=== PATIENT | female | born 1970 | race Caucasian/White ===

== ENCOUNTER 2018-11-20 07:45 | Emergency (ER) | payer MEDICAID, SELFPAY ==
[2018-11-20 07:47] VITALS: BP 167/113; PULSE 78; RESP 15; TEMP 36.6; O2SAT 98; BMI 32.3
[2018-11-20 07:52] VITALS: PULSE 72; RESP 17
--- NOTE | 2018-11-20 08:04 | ED.DCSUM_ITS ---
- ER Visit Summary Date of Service: 11/20/18 Chief Complaint: Allergic reaction History of Present Illness: The patient is a 48 F who states that approximately 0330 hours she ate some lays poppers. She tells me at approximately 0500 hrs. She began to experience some facial swelling and felt that it moved into her throat. She states she felt short of breath. She did not take anything. She went to urgent care where she states she has been for the past hour. She states they did not give her any medications. She states she feels somewhat better now. She cannot tell me her medications tell me the only should be in the computer but she unfortunately does not get regular care through the hospital [facility]. Physical Examination: Afebrile vital signs are stable Gen: Well-nourished well-developed Head: Normocephalic atraumatic Eyes: Perrl EOMI ENT: TMs clear no rhinorrhea moist mucous membranes there appears to be some upper lip swelling. There is no uvular swelling. The tongue appears normal. There is no stridor or drooling. Patient is laying back at a 40 degree angle. Neck: Supple no lymphadenopathy no JVD nontender CVS: Regular rate rhythm no murmurs normal S1-S2 Respiratory: No distress clear to auscultation bilaterally chest nontender Abdomen: Soft nontender nondistended normal bowel sounds no masses Back: Nontender Extremity: Nontender no edema Skin: Normal color no rash specifically no hives Neuro: alert orientated ?3 CN II-XII intact normal strength sensation reflexes gait cerebellar Psych: Normal affect normal mood Emergency Department Course and Treatment: Patient was placed on the monitor. She received a dose of Solu-Medrol, Pepcid, and Benadryl. She was observed. We contacted her pharmacy to obtain a medication list. I do not see the list. Patient was observed for approximately 2 half hours and is improved. Patient will be discharged home I will write for continued prednisone Pepcid and Benadryl at home. Return if worsening or concerns Impression: 1. Acute allergic reaction This note was generated with [employer] software. It may contain incorrect words, spelling, and punctuation that were not noted in review of the chart prior to signing ED Disposition - Plan for ED Patient: Disposition: Home or Assisted Living Instructions: ALLERGIC REACTION, Other (General) Prescriptions: Prednisone [Deltasone] 40 mg PO DAILY #6 tab Prescription Printed Referrals: Hudson Vidales DO [Primary Care Provider] - As Needed Additional Instructions: Benadryl 25 mg every 6 hours for the next 2 days Pepcid 20 mg twice a day for the next 2 days Return if worsening or concerns
[2018-11-20] MEDS: Famotidine 20 MG Tablet 40 MG PO (08:12)
[2018-11-20] MEDS: MethylPREDNISolone 125 MG/2 ML Vial IV (08:13)
[2018-11-20] MEDS: DiphenhydrAMINE 50 MG/ML Syringe 25 MG IV (08:13)
[2018-11-20 10:15] VITALS: BP 152/84; PULSE 70; RESP 16; O2SAT 93
[2018-11-20 10:51] VITALS: BP 127/81; PULSE 70; O2SAT 92
== END 2018-11-20 10:57 | disposition home or self-care (01) ==
PROVIDERS: Emergency Provider Emergency Medicine; Family Provider Student in an Organized Health Care Education/Training Program; PCP Student in an Organized Health Care Education/Training Program
DX: T78.40XA Allergy, unspecified, initial encounter (principal); R06.00 Dyspnea, unspecified; I10 Essential (primary) hypertension; E78.00 Pure hypercholesterolemia, unspecified; F32.9 Major depressive disorder, single episode, unspecified; Z72.0 Tobacco use
CPT/HCPCS: 96374; 96375; 99285; A4216

== ENCOUNTER 2018-11-22 04:36 | Observation (INO) | payer MEDICAID, SELFPAY ==
[2018-11-22] VITALS (10 sets, daily range): BP systolic 119–157; BP diastolic 62–108; PULSE 66–89; RESP 14–20; TEMP 36.7–37.2; O2SAT 94–99; BMI 27.4; BMI 30.9; BMI 31.0
--- NOTE | 2018-11-22 05:08 | CT_ITS ---
STUDY: CT SOFT TISSUE NECK WITH CONTRAST REASON FOR EXAM: Female, 48 years old. Uvulitis. RADIATION DOSAGE (If Supplied By Facility): CTDIvol = ( 23.28 ) mGy, DLP = ( 592.76 ) mGycm TECHNIQUE: The patient was scanned in a multi-detector CT scanner. High resolution transaxial imaging was performed following intravenous administration of 75CC IV Isovue 370. Sagittal and coronal images were reconstructed. Individualized dose optimization techniques were used for this CT. COMPARISON: None. FINDINGS: There is thickening of the soft palate, asymmetrically greater on the left. There is thickening of the left lateral oropharyngeal wall and asymmetric enlargement of the left palatine tonsil. Soft tissue thickening extends within the oropharynx and hypopharynx, with effacement of the left aryepiglottic fold, left vallecula, and left piriform sinus. No discrete mass or abscess is identified. The finding is indeterminate for inflammatory process versus neoplastic infiltration. Fat infiltration extends laterally into the left carotid space. There is also fatty infiltration around the left submandibular gland. The submandibular gland itself appears normal. Normal bilateral parotid glands. Normal bilateral body trimmer spaces. Normal bilateral sublingual and submandibular glands.. Normal visualized nasopharynx. The visualized cervical lymph nodes (levels I-) are within normal size limits, and maintain normal morphology. There is no demonstrated solid or cystic mass lesion. Normal epiglottis.. The pre-epiglottic and paraglottic adipose spaces are normal. Normal visualized bilateral vocal cords, and arytenoid-cricoid articulations. Normal subglottic trachea. Normal bilateral lobes of the thyroid gland. There mild emphysematous changes in the visualized upper lung sue. There is minimal mucoperiosteal thickening in left maxillary sinus, consistent with chronic disease. There is multilevel degenerative changes of the cervical spine. CT/Soft Tissue Neck WITH Contrast IMPRESSION: Asymmetric soft tissue thickening and heterogeneity of the left oropharyngeal and hypopharyngeal wall as well as the soft palate, possibly representing an inflammatory or neoplastic process. No discrete mass or abscess is visualized. There is associated fat alteration in the left carotid space and left submandibular region. Electronically Signed: Felix Cid MD at 7:46 EDT , Service support ,
[2018-11-22] MEDS: MethylPREDNISolone 125 MG/2 ML Vial IV (05:35)
[2018-11-22] MEDS: DiphenhydrAMINE 50 MG/ML Syringe 25 MG IV ×3 (05:36→17:29)
[2018-11-22 05:40] LABS: Absolute Lymphocyte Count 1.81 X10^3/ul (0.83-4.51); Absolute Neutrophil Count 4.6 X10^3/uL (2.0-7.7); Basophil# 0.01 X10^3/uL; Basophil% 0.1 % (0-1); Eosinophil# 0.06 X10^3/uL; Eosinophils% 0.8 % (0-5); Hematocrit 41.5 % (37-47); Hemoglobin 14.1 g/dl (12.0-15.0); Lymphocyte # 1.81 X10^3/ul (4.0); Lymphocyte % 25.5 % (19-41); Mean Corpuscular Hgb 29.6 pg (27.0-32.0); Mean Corpuscular Volume 87.2 fL (81-99); Mean Platelet Vol. 8.7 fl (6.2-12.0); Monocyte% 8.4 % (0-10); Neutrophil # 4.62 X10^3/uL (2.7-7.7); Neutrophil % 65.1 % (47-70); POSITIVE COUNT NO; POSITIVE DIFFERENTIAL NO; POSITIVE MORPHOLOGY NO; Platelet Count 257 K/mm3 (150-450); RBC Distribution Width CV 13.1 % (11.6-14.6); RBC Distribution Width SD 41.2 fl (35.1-43.9); Red Blood Count 4.76 M/mm3 (4.2-5.4); White Blood Count 7.1 K/mm3 (4.4-11.0)
[2018-11-22 06:28] LABS: Anion Gap 9 (5-15); BUN 18 mg/dL (7-18); BUN/Creat Ratio 17.3 RATIO (10-20); Chloride 95 mmol/L (98-107); Creatinine, Serum 1.04 mg/dL (0.55-1.02); EST Glomerular Filtration Rate 60 mL/min (>60); Est Glom Filt Rate - Afr Amer 72 mL/min (>60); Estimated Creatinine Clearance 53.53 ml/min; Glucose 96 mg/dL (74-106); Sodium Level 133 mmol/L (136-145)
--- NOTE | 2018-11-22 07:36 | ED.DCSUM_ITS ---
- ER Visit Summary Date of Service: 11/22/18 Chief Complaint: Left face and hand swelling History of Present Illness: The patient is a 48 F who presents with left face and hand swelling. She was seen yesterday for possible allergic reaction. She was treated with steroids Benadryl Pepcid. Her symptoms improved and she was discharged. Symptoms began to recur about 2 hours ago. She noticed swelling of her left hand as well as the left side of her face and neck and also has change in her voice was hoarse voice. At this time she does not have any difficulty breathing. Physical Examination: Blood pressure 157/108 vitals otherwise unremarkable Moist mucous membranes Hoarse voice Patient has uvular edema as well as some edema of the left side of the pharynx Heart regular rate and rhythm Lungs clear Abdomen soft Patient also has edema of the left hand Test Results: CBC BMP unremarkable. CT the soft tissue the neck on my review does show enlarged uvula but the airway appears to be patent. Radiology read is pending. Emergency Department Course and Treatment: Etiology of the patient's symptoms is unclear. I suspect this is an atypical angioedema. She is not on an PATRICK inhibitor and does not have history of prior similar symptoms. However given her significant uvular edema with voice changes and second ER visit within a day I feel hospital observation warranted. She was treated here with IV Solu-Medr ol, Pepcid, Benadryl. Treatment Plan: [] Disposition: Admit Impression: Uvulitis, suspect angioedema Left hand swelling This note was generated with [employer] dictation software. It may contain incorrect words, spelling, and punctuation that were not noted in review of the chart prior to signing ED Disposition - Plan for ED Patient: Referrals: Hudson Vidales DO [Primary Care Provider] -
--- NOTE | 2018-11-22 07:56 | NURSING ---
PCU ALLERGIC RK, POSSIBLE ANGIOEDEMA GENESIS
--- NOTE | 2018-11-22 08:47 | HP.PCM_ITS ---
Problem List (1) Hypertension Status: Chronic (2) Epilepsy, unspecified, not intractable, without status epilepticus Status: Chronic (3) Dyslipidemia Status: Chronic (4) Anxiety and depression Status: Chronic (5) Angioedema Status: Acute History of Present Illness Date of Admission: 11/22/18 Chief Complaint: Swelling of upper airways The patient is a 48 year old F with history of seasonal allergy came to ED on 11/20 throat swelling and facial swelling and was given 1 dose of Solu-Medrol, Pepcid and Benadryl and sent home on prednisone, Pepcid and Benadryl. Patient stated her initially she felt better but facial and hand swelling came back doctor naturopathic today. She noticed swelling of the left hand with a small maculopapular rash localized to hand and upper forearm. She denies any difficulty in breathing. She also noticed change in her voice with worsening. She denies allergic history of lisinopril, other PATRICK inhibitor or any significant drug allergy except seasonal allergy to pollens. This started after she ate lay poppers on 11/20. She never had that before. Past Medical History Past Medical History (Chronic Problems): Chronic Problems Hypertension (Chronic) Epilepsy, unspecified, not intractable, without status epilepticus (Chronic) Dyslipidemia (Chronic) Anxiety and depression (Chronic) Allergies SEASONAL Allergy (Uncoded 11/22/18 04:40) Other Home Medications: Ambulatory Orders Medication Instructions Recorded Albuterol IH (ProAir) [Proair Hfa 1 puff INHALATION Q6H PRN PRN 11/20/18 (SP)Vent Pts] Carbamazepine [Tegretol] 200 mg PO BIDCM 11/20/18 Citalopram [Celexa] 20 mg PO DAILY 11/20/18 Docusate Sodium [Colace] 100 mg PO BID 11/20/18 Fluticasone 0.05% [Flonase Nasal 2 spray NASAL DAILY 11/20/18 [place]] Ibuprofen [Motrin] 600 mg PO Q6H PRN PRN 11/20/18 Simvastatin 1 tab PO DAILY 11/20/18 hydrALAZINE [Apresoline] 25 mg PO TID 11/20/18 Smoking Status: Current every day smoker - *Family History Paternal History Items: No pertinent history - Significant allergic history to penicillin or other common drugs or hereditary angioedema in first-degree family relative Review of Systems Constitutional: Denies: Chills, Fever, Weight Change HEENT: Reports: Sore Throat, - - Hoarseness. Denies: Difficulty Swallowing, Dysphasia, Head Aches, Sinus Congestion, Sinus Drainage Cardiovascular: Denies: Chest Pain, Chest Pressure, Chest Tightness, Palpitations Respiratory: Denies: Cough, Shortness of Breath, Shortness of breath at rest, Sputum production Gastrointestinal: Denies: Abdominal Pain, Nausea, Vomiting Genitourinary: Denies: Dysuria Musculoskeletal: Denies: Joint Pain, Joint Tenderness Skin: Denies: Rash, Wounds Neurological: Denies: Numbness, Tingling, Focal weakness Psychiatric: Denies: Anxiety, Depression, Homicidal Ideations, Suicidal Ideations Hematologic/ Lymphatic: Denies: Easy Bruising, Easy Bleeding VTE Information - Inpt Only VTE Present on Admission: No VTE Mechan Device Prophylaxis: None VTE Pharm Prophylaxis ordered?: Yes Patient Problems: Active and Suspected Problems Angioedema (Acute) - Physical Exam General: Alert, Oriented x3, Cooperative HEENT: Atraumatic, PERRLA, EOMI, Normocephalic, - - Mild facial puffiness/swelling. Swelling of/soft palate/uvula. Posterior part of tongue. Tenderness of neck anteriorly near the larynx and submandibular region Oral: No Gingival or Mucosal Lesions/ Ulcerations Neck: Supple, No JVD, Negative Carotid Bruits Lungs: Clear to auscultation, Normal air movement Cardiovascular: Regular rate, No murmurs Abdomen: Bowel Sounds Present, Soft, Non Tender, Non-Distended Extremities: No edema, Capillary Refill Less than 3 Seconds Skin: No rashes, No breakdown, Rash Present - Localized macular papular rash on dorsal aspect of left hand and forearm. Chronic freckles over her back and extensor aspect of both arm. She claims freckles are old rash on sun after taking hydralazine. Musculoskeletal: No Tenderness to Palpation of Joints or Extremities Lymphatic: No Cervical, Supraclavicular, or Inguinal Adenopathy Neurological: Cranial nerves II-XII grossly intact, Deep Tendon Reflexes 2+/4 and Symmetrical, Neuro grossly intact Psych/Mental Status: Normal Affect, Appropriate Vital Signs Temp Pulse Resp BP Pulse Ox 98.1 F 89 14 157/108 H 99 11/22/18 04:36 11/22/18 04:36 11/22/18 07:53 11/22/18 04:36 11/22/18 04:36 Oxygen Delivery Method Room Air Weight: 155 lb Body Mass Index (BMI) 27.4 Laboratory Tests Past 24 Hrs 11/22/18 11/22/18 11/22/18 05:25 05:25 05:25 WBC 7.1 RBC 4.76 Hgb 14.1 Hct 41.5 MCV 87.2 MCH 29.6 MCHC 34.0 RDW 13.1 RDW Differential 41.2 Plt Count 257 MPV 8.7 Immature Gran % (Auto) 0.100 Neut % (Auto) 65.1 Lymph % (Auto) 25.5 [place] % (Auto) 8.4 Eos % (Auto) 0.8 Baso % (Auto) 0.1 Absolute Neuts (auto) 4.6 Absolute Lymphs (auto) 1.81 Total Counted Not Reportable Sodium 133 L Potassium 4.0 Chloride 95 L Carbon Dioxide 29.0 Anion Gap 9 BUN 18 Creatinine 1.04 H Estim Creat Clear Calc 53.53 Est GFR (MDRD) Af Amer 72 Est GFR (MDRD) Non-Af 60 BUN/Creatinine Ratio 17.3 Glucose 96 Calcium 9.0 Total Bilirubin Pending Direct Bilirubin Pending AST Pending ALT Pending Alkaline Phosphatase Pending C-React Prot Ext Range Pending Total Protein Pending Albumin Pending Assessment/Plan All Active Problems Angioedema (Acute) The patient is a 48 year old F with history of seasonal allergy came to ED on 11/20 lip, throat swelling and facial swelling after eating started after she ate lay poppers on 11/20 is being admitted for recurrence of symptoms and change in voice. 1. Swelling of tongue, soft palate and upper airways with concern of angioedema: Patient is being admitted in PCU for airway monitoring. Patient is started on IV Solu-Medrol, famotidine and Benadryl. IV fluid normal saline at 100 mL/h. Patient advised not to eat LAY poppers, potato chips. 2. Hypertension: Uncontrolled. Blood pressure was 152/74. Continue home medication and monitor. 3. Epilepsy nonspecific, chronic: Patient is on Tegretol and continued. 4. Other comorbidities include dyslipidemia, moderate obesity: Home medications continued. DVT prophylaxis: On Lovenox 40 g subcu daily. Code Visit OBSV E&M: 11476 Initial observation care L3
[2018-11-22] MEDS: 0.9% Normal Saline 1,000 ML 100 ML IV ×2 (09:40→20:00)
[2018-11-22 09:48] LABS: AST(SGOT) 28 U/L (15-37); Alanine Aminotransfer ALT/SGPT 23 U/L (13-56); Albumin, Serum 3.5 g/dL (3.2-5.0); Alkaline Phosphatase 95 U/L (45-117); Bilirubin, Direct 0.08 mg/dL (0.00-0.30); Globulin 3.9 g/dL (2.2-4.2); Protein, Total 7.4 g/dL (6.4-8.2)
[2018-11-22] MEDS: Fluticasone 0.05% 1 SPRAY NASAL.SRY 2 SPRAY NASAL (10:59)
[2018-11-22] MEDS: Enoxaparin 40 MG/0.4 ML Syringe SC (11:00)
[2018-11-22] MEDS: Famotidine 20 MG Tablet PO ×2 (11:00→21:47)
[2018-11-22] MEDS: carBAMazepine 200 MG Tablet PO ×2 (11:00→17:29)
[2018-11-22] MEDS: Docusate Sodium 100 MG Capsule PO (11:01)
[2018-11-22] MEDS: Citalopram 20 MG Tablet PO (11:01)
[2018-11-22] MEDS: hydrALAZINE 25 MG Tablet PO ×2 (11:02→21:47)
[2018-11-22] MEDS: Atorvastatin Calcium 20 MG Tablet PO (21:47)
[2018-11-22] MEDS: 0.9% NaCl Peripheral Flush Adult/Peds IV (21:48)
[2018-11-23] MEDS: DiphenhydrAMINE 50 MG/ML Syringe 25 MG IV ×2 (00:11→05:47)
[2018-11-23] MEDS: 0.9% NaCl Peripheral Flush Adult/Peds IV ×2 (00:11→05:51)
[2018-11-23 03:00] VITALS: PULSE 66
[2018-11-23 03:40] VITALS: BP 130/73; PULSE 70; RESP 20; TEMP 36.7; O2SAT 94
[2018-11-23 05:48] VITALS: BP 156/94; PULSE 73
[2018-11-23] MEDS: hydrALAZINE 25 MG Tablet PO (05:48)
[2018-11-23] MEDS: 0.9% Normal Saline 1,000 ML 100 ML IV (05:52)
[2018-11-23 06:21] LABS: Anion Gap 7 (5-15); BUN 13 mg/dL (7-18); BUN/Creat Ratio 17.1 RATIO (10-20); Calcium,Total 8.2 mg/dL (8.5-10.1); Chloride 107 mmol/L (98-107); Creatinine, Serum 0.76 mg/dL (0.55-1.02); EST Glomerular Filtration Rate 86 mL/min (>60); Est Glom Filt Rate - Afr Amer 103 mL/min (>60); Estimated Creatinine Clearance 76.47 ml/min; Glucose 112 mg/dL (74-106); Magnesium 2.1 mg/dL (1.6-2.6); Potassium 3.7 mmol/L (3.5-5.1); Sodium Level 140 mmol/L (136-145); Thyroid Stim Hormone (TSH) 0.24 uIU/mL (0.358-3.74)
[2018-11-23 07:13] VITALS: PULSE 64
[2018-11-23 09:05] VITALS: BP 171/92; PULSE 75; RESP 17; TEMP 36.6; O2SAT 96
[2018-11-23] MEDS: Fluticasone 0.05% 1 SPRAY NASAL.SRY 2 SPRAY NASAL (09:17)
[2018-11-23] MEDS: Enoxaparin 40 MG/0.4 ML Syringe SC (09:17)
[2018-11-23] MEDS: Citalopram 20 MG Tablet PO (09:17)
[2018-11-23] MEDS: Docusate Sodium 100 MG Capsule PO (09:17)
[2018-11-23] MEDS: carBAMazepine 200 MG Tablet PO (09:17)
[2018-11-23] MEDS: Famotidine 20 MG Tablet PO (09:18)
[2018-11-23] MEDS: MethylPREDNISolone Acetate 80 MG/ML Vial IM (10:39)
--- NOTE | 2018-11-23 10:48 | DCINST_ITS ---
- Discharge Diagnoses Current Active Problems: Current Active and Chronic Problems Hypertension (Chronic) Epilepsy, unspecified, not intractable, without status epilepticus (Chronic) Dyslipidemia (Chronic) Anxiety and depression (Chronic) Angioedema (Acute) You will use the following diet at home:: No restrictions Your food should be the consistency of: Regular Your liquids should be the consistency of: Regular/Thin Discharge Activity: Return to Normal Activity Weight Bearing Status: Full weight bearing Additional Instructions: TAKE BENADRYL 25 MG 3-4 TIMES A DAY NEEDED FOR RASH/ITCHING Allergies/Adverse Reactions: Allergies SEASONAL Allergy (Uncoded 11/22/18 04:40) Other Medications to take at Discharge Albuterol IH (ProAir) [Proair Hfa] 1 puff INHALATION Q6H PRN PRN 11/20/18 Carbamazepine [Tegretol] 200 mg PO BIDCM 11/20/18 Citalopram [Celexa] 20 mg PO DAILY 11/20/18 Docusate Sodium [Colace] 100 mg PO BID 11/20/18 Fluticasone 0.05% [Flonase Nasal [place]] 2 spray NASAL DAILY 11/20/18 Ibuprofen [Motrin] 600 mg PO Q6H PRN PRN 11/20/18 Simvastatin 1 tab PO DAILY 11/20/18 Amlodipine Besylate [Norvasc] 5 mg PO DAILY #30 tab 11/23/18 The following prescriptions were given: Amlodipine Besylate [Norvasc] 5 mg PO DAILY #30 tab Transmission Status: Pending to [facility] #30 Primary Care Physician: Hudson Vidales DO [Primary Care Provider] - Please follow up with your Primary Care Physician in: in 7-10 days Test Results: Test results from this visit will be discussed in further detail at your follow- up appointment, if applicable.
[2018-11-23 11:20] VITALS: BP 160/81; PULSE 78; RESP 16; TEMP 36.7; O2SAT 98
--- NOTE | 2018-11-23 11:20 | NURSING ---
Discharge teaching completed. [facility] pharmacist discussed new medication Norvasc with patient. Questions answered and handout provided. Patient voiced understanding of same. Patient to start new bp medication when she picks up from pharmacy and follow up with PCP in 7-10 days, sooner if unable to continue new bp medication. Patient voices understanding of same. No other questions verbalized.
--- NOTE | 2018-11-23 11:21 | PHA.DC.MC ---
Pharmacy Service has performed discharge medication reconciliation and counseling for this patient. The patient's discharge medication list was reviewed for discrepancies and discrepancies were resolved. The patient was counseled on the following discharge medications and changes in medications for homegoing were reviewed. 1. AMLODIPINE The Reason for Use, instructions for use, and potential side effects were reviewed for all new medications. The patient's questions regarding all of their medications were answered. The patient was able to verbally demonstrate an understanding of their discharge medications. Home Medications Albuterol IH (ProAir) [Proair Hfa] 1 puff INHALATION Q6H PRN PRN 11/20/18 Carbamazepine [Tegretol] 200 mg PO BIDCM 11/20/18 Citalopram [Celexa] 20 mg PO DAILY 11/20/18 Docusate Sodium [Colace] 100 mg PO BID 11/20/18 Fluticasone 0.05% [Flonase Nasal [place]] 2 spray NASAL DAILY 11/20/18 Ibuprofen [Motrin] 600 mg PO Q6H PRN PRN 11/20/18 Simvastatin 1 tab PO DAILY 11/20/18 Amlodipine Besylate [Norvasc] 5 mg PO DAILY #30 tab 11/23/18
--- NOTE | 2018-11-25 08:33 | DS.PCM_ITS ---
Discharge Date and Diagnosis Date of Admission: 11/22/18 Date of Discharge: 11/23/18 - Primary Discharge Diagnosis #1 allergic reaction-etiology unclear with upper airway edema #2 hypertension #3 epilepsy - Secondary Discharge Diagnosis Chronic Problems Hypertension (Chronic) Epilepsy, unspecified, not intractable, without status epilepticus (Chronic) Dyslipidemia (Chronic) Anxiety and depression (Chronic) Hospital Course and Treatment Operations: None Procedures: None Summary of Care Provided: The patient is a 48 year old F who was seen in the emergency room at [facility] with chief complaint of tongue and throat swelling. Patient had no complaints of shortness of breath. Patient has been seen in the emergency room on 11/20/2018 and was discharged to home with a diagnosis of allergic reaction. Work-up in the emergency room included a CBC and a BMP which were unremarkable, CT of the soft tissues of the neck showed enlarged uvula but her airway was patent. The etiology of the patient's symptoms were unclear, she was given IV Solu-Medrol, Pepcid, and Benadryl in the emergency room, patient was placed in observation status on PCU and monitored. There was no worsening of the patient's symptomology and no problems with her airway while she was in the hospital. On 11/23/2018, patient was seen and examined: On examination she appeared in good health and spirits. Vital signs as documented. Skin warm and dry and without overt rashes. Neck without JVD. Lungs clear. Heart exam notable for regular rhythm, normal sounds and absence of murmurs, rubs or gallops. Abdomen unremarkable and without evidence of organomegaly, masses, or abdominal aortic enlargement. Extremities nonedematous. Neuro: Cranial nerves II through XII are grossly intact, no focal motor deficits were noted, sensation to light touch and pinprick is intact. Psych: Patient is alert and oriented x3, she does not appear anxious or depressed On 11/23/2018, patient was seen and examined in follow-up in stable condition for discharge home, patient was given an injection of IM Depo-Medrol 80 mg before her discharge and she was instructed to use Benadryl as needed for symptoms. - Physical Exam Vital Signs Temp Pulse Resp BP Pulse Ox 98.1 F 78 16 160/81 H 98 11/23/18 11:20 11/23/18 11:20 11/23/18 11:20 11/23/18 11:20 11/23/18 11:20 Oxygen Delivery Method Room Air Weight: 81.9 kg Body Mass Index (BMI) 30.9 Intake and Output for Last 24 Hours 11/23/18 11/24/18 11/25/18 23:59 23:59 23:59 Intake Total 552 / 552 Balance 552 / 552 Discharge Activity: Return to Normal Activity Weight Bearing Status: Full weight bearing Home Medications: Medications to take at Discharge Albuterol IH (ProAir) [Proair Hfa] 1 puff INHALATION Q6H PRN PRN 11/20/18 Carbamazepine [Tegretol] 200 mg PO BIDCM 11/20/18 Citalopram [Celexa] 20 mg PO DAILY 11/20/18 Docusate Sodium [Colace] 100 mg PO BID 11/20/18 Fluticasone 0.05% [Flonase Nasal [place]] 2 spray NASAL DAILY 11/20/18 Ibuprofen [Motrin] 600 mg PO Q6H PRN PRN 11/20/18 Simvastatin 1 tab PO DAILY 11/20/18 Amlodipine Besylate [Norvasc] 5 mg PO DAILY #30 tab 11/23/18 Following Prescrptions Were Given to Patient: Amlodipine Besylate [Norvasc] 5 mg PO DAILY #30 tab Transmission Status: Received by [facility] #30 Primary Care Physician: Hudson Vidales DO [Primary Care Provider] - Please follow up with your Primary Care Physician in: in 7-10 days Disposition: Home Minutes spent on discharge:: 25 Patient Condition:: Stable Medical Necessity - Tobacco Use Smoking Status: Current every day smoker Tobacco Use: Cigarettes Meaningful Use Info Meaningful Use Diagnoses (Choose all that apply): None applicable Code Visit OBSV E&M: 68398 Observation care discharge
== END 2018-11-23 10:49 | disposition home or self-care (01) ==
LOC: ED 05:23 → PCU 08:06
PROVIDERS: Admitting Provider Internal Medicine; Emergency Provider Emergency Medicine; Family Provider Student in an Organized Health Care Education/Training Program; PCP Student in an Organized Health Care Education/Training Program; Visit Provider Internal Medicine
DX: T78.3XXA Angioneurotic edema, initial encounter (principal); X58.XXXA Exposure to other specified factors, initial encounter; I10 Essential (primary) hypertension; E78.5 Hyperlipidemia, unspecified; F41.9 Anxiety disorder, unspecified; F32.9 Major depressive disorder, single episode, unspecified; G40.909 Epilepsy, unspecified, not intractable, without status epilepticus; Z79.899 Other long term (current) drug therapy; M79.89 Other specified soft tissue disorders; F17.210 Nicotine dependence, cigarettes, uncomplicated
CPT/HCPCS: 36415; 70491; 80048; 80076; 83735; 84443; 85025; 86140; 96361; 96372; 96374; 96375; 96376; 99218; 99284; 99406; J7030; Q9967; A4216; G0378; J3490

== ENCOUNTER 2025-01-19 15:12 | Observation (INO) | payer MEDICAID, SELFPAY ==
[2025-01-19] VITALS (10 sets, daily range): BP systolic 168–199; BP diastolic 91–103; PULSE 78–108; RESP 18–20; TEMP 36.5–36.8; O2SAT 92–97; BMI 24.7; BMI 24.5
--- NOTE | 2025-01-19 15:30 | EX.ED.DYSGE1 ---
HPI History of Present Illness Chief Complaint: Abn Labs Detail of Chief Complaint: Low-sodium Informant: patient Narrative Narrative: Patient presents to the emergency department at the request of her primary care physician for concern over low sodium. Patient states that she had routine 6-month follow-up blood work done yesterday and today was called and was told she had low sodium. Patient has no complaints. She denies vomiting or diarrhea. She has no history of low sodium. Denies any new significant medications. PFSH PFSH Medical History no medical history Home Medications ?Medication ?Instructions ?Recorded ?Last Taken ?Type albuterol sulfate 90 mcg/actuation 1 puff inhalation Q6H PRN PRN 11/20/18 Unknown History aerosol inhaler Shortness Of Breath carbamazepine 200 mg tablet 200 mg PO BIDCM seizures 11/20/18 11/21/18 23:00 History citalopram 20 mg tablet 20 mg PO DAILY depression 11/20/18 11/21/18 10:00 History docusate sodium 100 mg capsule 100 mg PO BID constipation 11/20/18 11/21/18 23:00 History fluticasone propionate 50 2 spray NASAL DAILY allergies 11/20/18 11/21/18 09:00 History mcg/actuation nasal spray,suspension ibuprofen 600 mg tablet 600 mg PO Q6H PRN PRN Pain 11/20/18 Unknown History simvastatin 40 mg tablet 1 tab PO DAILY cholesterol 11/20/18 11/21/18 23:00 History amlodipine 5 mg tablet 5 mg PO DAILY #30 tabs 11/23/18 Unknown Rx Allergy/AdvReac Type Severity Reaction Status Date / Time Seasonal Allergies: Uncoded Allergy NEEDS Verified 01/19/25 15:13 FOLLOW-UP Family History no significant family his Surgical History no surgical history Social History Smoking Status: Current every day smoker tobacco type: cigarettes ROS ROS ED ROS Narrative Concern for low sodium Review of Systems ROS Unobtainable: other Constitutional Constitutional ED: Reports lethargy; Denies chills, fever(s), sweats or weight loss Eyes Eyes: Denies blurry vision, change in vision or diplopia ENT ENT ED: Denies rhinorrhea or sore throat Cardiovascular Cardiovascular: Denies chest pain, orthopnea or racing heartbeat Respiratory/Chest Respiratory/Chest: Denies cough, dyspnea, dyspnea on exertion, orthopnea or sputum Gastrointestinal Gastrointestinal: Denies abdominal pain, diarrhea, nausea or vomiting Genitourinary Genitourinary ED: Denies dysuria, hematuria or urinary frequency Musculoskeletal Musculoskeletal: Denies arthralgias, back pain, myalgias or neck pain Integumentary Denies abscess, Abrasions or rash Neurologic Neurologic: Denies headache(s) or weakness Psychiatric Psychiatric: Denies anxiety, depression or suicidal thoughts Endocrine Endocrinology: Denies polydipsia, polyphagia or polyuria Hematologic/Lymphatic Hematologic/Lymphatic: Denies easy bleeding, easy bruising or lymphadenopathy Allergic/Immunologic Allergic/Immunologic ED: Denies mouth swelling, tongue swelling or urticaria EXAM Physical Exam Const Vital Signs: 01/19/25 15:13 01/19/25 15:48 01/19/25 16:13 Temperature 98.2 F Temperature Source Oral Pulse Rate 108 H 84 Respiratory Rate 18 Respiratory Effort Normal Non-Labored Respiratory Pattern Normal Blood Pressure 189/97 H 168/100 H Blood Pressure Mean 127 122 Pulse Ox 96 93 Oxygen Delivery Method Room Air Room Air 01/19/25 17:00 Temperature Temperature Source Pulse Rate 82 Respiratory Rate Respiratory Effort Respiratory Pattern Blood Pressure 176/93 H Blood Pressure Mean 120 Pulse Ox 92 Oxygen Delivery Method Room Air Positive well nourished and well developed General Appearance ED: well developed and NAD HEENT Reports TM's clear and moist mucous membranes normocephalic and atraumatic; Negative for trauma or tenderness Tympanic Membrane ED: Yes TM's clear Eyes PERRL and EOMs intact bilaterally General Eye ED: Negative for pale conjunctiva or scleral icterus Neck no lymphadenopathy, supple and no JVD General: Negative for tenderness Chest Wall inspection of chest normal and palpation of chest normal Chest: Negative for tenderness Resp normal respiratory effort and clear to auscultation bilaterally Effort and Inspection: Negative for respiratory distress or pain with movement Auscultation: Negative for rhonchi, wheezes or diminished lung sounds Cardio regular rate, regular rhythm, S1 normal heart sound, S2 normal heart sound and no murmurs Peripheral Pulses: pulses 2+ throughout GI normal to inspection, nondistended, normoactive bowel sounds, soft to palpation, non-tender, non-distended and no masses Back/Spine no CVA tenderness and no thoracic nor lumbar tenderness Extremity normal to inspection General Extremety ED: Negative for edema General Extremity: Negative for edema Neuro oriented x3, CN's II-XII intact bilaterally, no sensory deficits noted and gait normal Sensorium / Orientation: awake, alert, oriented to person, oriented to place and oriented to time Motor Exam: strength 5/5 throughout and strength abnormal Psych mental status grossly normal Skin no rashes or lesions noted and no wounds MDM MDM MDM Narrative Medical decision making narrative: Patient presents to the ER with complaint of hyponatremia. Only new medication is a medication to help her quit smoking she cannot remember the name of it. Patient is essentially asymptomatic otherwise. She is not on any diuretics. She clinically looks well. Repeat BMP obtained showed a sodium of 121 with potassium 3.4 and chloride of 82. BUN was 9 and creatinine 0.87. I ordered normal saline at 250 cc an hour. Ordered CBC and urinalysis. Will discuss with hospitalist to evaluate patient for admission for hyponatremia. Lab Data Attestation: I reviewed the patient's lab results. Labs: Laboratory Results - last 24 hr 01/19/25 15:45 Sodium 121 L Potassium 3.4 Chloride 82 L Carbon Dioxide 25.0 Anion Gap 14 BUN 9 Creatinine 0.87 Estim Creat Clear Calc 62.35 Est GFR (MDRD) Non-Af 78 BUN/Creatinine Ratio 10.0 Glucose 87 Calcium 9.4 Discharge Plan Triage Chief Complaint: Abn Labs ED Provider: Nemo Cabello Dx/Rx/DC Orders Clinical Impression: Acute hyponatremia Prescriptions: No Action carbamazepine 200 MG tablet 200 mg PO BIDCM citalopram 20 MG tablet 20 mg PO DAILY docusate sodium 100 MG capsule 100 mg PO BID ibuprofen 600 MG tablet 600 mg PO Q6H PRN PRN (Reason: Pain) albuterol sulfate 1 PUFF inhaler 1 puff inhalation Q6H PRN PRN (Reason: Shortness Of Breath) fluticasone propionate 1 SPRAY spray,suspension 2 spray NASAL DAILY simvastatin 40 MG tablet 1 tab PO DAILY amlodipine 5 MG tablet 5 mg PO DAILY Qty: 30 0RF Primary Care Provider: Hudson Vidales Referrals: Hudson Vidales DO [Primary Care Provider] - Print Language: Romansh Disposition Disposition: [facility]
[2025-01-19 17:05] LABS: Anion Gap 14 (5-15); BUN 9 mg/dL (4-19); BUN/Creat Ratio 10.0 RATIO (10-20); Calcium,Total 9.4 mg/dL (7.6-11.0); Carbon Dioxide 25.0 mmol/L (21.0-32.0); Chloride 82 mmol/L (98-108); Estimated Creatinine Clearance 62.35 ml/min (50-250); Glucose 87 mg/dL (70-99); Potassium 3.4 mmol/L (3.3-5.1)
--- NOTE | 2025-01-19 17:10 | EKG12_ITS ---
Test Reason : O Blood Pressure : */* mmHG Vent. Rate : 90 BPM Atrial Rate : 90 BPM P-R Int : 154 ms QRS Dur : 78 ms QT Int : 390 ms P-R-T Axes : -13 -12 -3 degrees QTcB Int : 477 ms Normal sinus rhythm Normal ECG Confirmed by ALICE SWEENEY, KIERRA ([id number]), publication editor ANY HUA ([id number]) on 01/20/2025 1:36:05 PM Referred By: Confirmed By: KIERRA JENKINS MD
--- NOTE | 2025-01-19 17:11 | HP.PCM.HOS_ITS ---
HPI - General General Date of Admission: 01/19/25 Date of Service: 01/19/25 Chief Complaint: Abnormal labs HPI Narrative SUSANNA MELTON, is a 54 F who presented to [facility] ED on 01/19/2025 with abnormal outpatient labs. Patient with on routine outpatient labs to have new onset hyponatremia with sodium 121. Asymptomatic. Medical history is significant for hypertension, hyperlipidemia, seizure disorder and tobacco dependence. She started taking bupropion a little over 1 week ago for assistance with smoking cessation. No other medication changes noted. Reports eating and working well and having normal urine output. In the ED she was hypertensive to the 170s to 180s systolic but otherwise in normal sinus rhythm and stable on room air at rest. Labs notable for sodium 121, chloride 82, potassium 3.4, bicarb 25, creatinine 0.87 (at baseline). CBC was benign. Chest x-ray unremarkable. Given new onset hyponatremia, hospitalist was contacted for admission. I saw the patient at bedside in the ED. Patient was sitting back comfortably in bed, conversing normally, in no acute distress. She is been feeling well recently, denies any acute concerns at this time. Will be admitted for further management. [facility] Medical History (Updated 01/19/25 @ 18:40 by Lilly Alberts) Hyperlipidemia Hypertension Asthma Epilepsy Medical History no medical history Home Medications ?Medication ?Instructions ?Recorded ?Last Taken ?Type albuterol sulfate 90 mcg/actuation 1 puff inhalation Q 6H PRN PRN 11/20/18 Unknown History aerosol inhaler Shortness Of Breath carbamazepine 200 mg tablet 200 mg PO BIDCM seizures 0 11/20/18 01/19/25 History simvastatin 40 mg tablet 1 tab PO DAILY cholesterol 0 11/20/18 01/19/25 History amlodipine 5 mg tablet 5 mg PO DAILY #30 tabs 11/2301/19/25 Rx bupropion HCl 150 mg tablet,12 hr 150 mg PO BID Unknown History sustained-release cholecalciferol (vitamin D3) 125 5,000 unit PO DAILY 0 01/19/25 01/19/25 History mcg (5,000 unit) tablet (Vitamin D3) Allergy/AdvReac Type Severity Reaction Status Date / Time Seasonal Allergies: Uncoded Allergy NEEDS Verified 01/19/25 15:13 FOLLOW-UP Family History no significant family his Surgical History no surgical history Social History Smoking Status: Current every day smoker tobacco type: cigarettes ROS Constitutional Constitutional: Denies chills, fatigue, fever(s) or weakness Cardiovascular Cardiovascular: Denies chest pain or lightheadedness Respiratory/Chest Respiratory/Chest: Denies shortness of breath at rest Gastrointestinal Gastrointestinal: Denies abdominal pain Musculoskeletal Musculoskeletal: Denies arthralgias or myalgias Neurologic Neurologic: Denies confusion, dizziness, focal weakness, headache(s), numbness or tingling Vital Signs Vital Signs Vital Signs: 01/19/25 15:13 01/19/25 15:48 01/19/25 16:13 Temperature 98.2 F Temperature Source Oral Pulse Rate 108 H 84 Respiratory Rate 18 Respiratory Effort Normal Non-Labored Respiratory Pattern Normal Blood Pressure 189/97 H 168/100 H Blood Pressure Mean 127 122 Pulse Ox 96 93 Oxygen Delivery Method Room Air Room Air 01/19/25 17:00 Temperature Temperature Source Pulse Rate 82 Respiratory Rate Respiratory Effort Respiratory Pattern Blood Pressure 176/93 H Blood Pressure Mean 120 Pulse Ox 92 Oxygen Delivery Method Room Air Weight Weight: 65.317 kg Body Mass Index (BMI) 24.7 Physical Exam Const alert, oriented x3, no apparent distress, average body habitus, healthy appearing and well nourished Constitutional Narrative: Pleasant middle-age female, sitting back comfortably in bed, conversing normally, in no acute distress. General Appearance: cooperative, comfortable, well kempt and well developed HEENT normocephalic, head/scalp atraumatic, hearing grossly normal bilaterally, nasal mucous membranes and turbinates normal and moist oral mucous membranes Eyes PERRL, EOMs intact bilaterally and conjunctivae normal Neck full ROM Chest inspection of chest normal Resp normal respiratory effort, normal air movement, no use of accessory muscles and clear to auscultation bilaterally Cardio regular rate, regular rhythm, no murmurs and peripheral pulses 2+ throughout GI normal to inspection, nondistended, normoactive bowel sounds, soft to palpation, non-tender and non-distended Back/Spine normal ROM Extremity normal to inspection, full ROM and no pedal edema Skin no rashes or lesions noted Psych mental status grossly normal Results Lab / Micro Data 01/19/25 17:58 01/19/25 15:45 Labs: Laboratory Results - last 24 hr 01/19/25 15:45: Sodium 121 L, Potassium 3.4, Chloride 82 L, Carbon Dioxide 25.0, Anion Gap 14, BUN 9, Creatinine 0.87, Estim Creat Clear Calc 62.35, Est GFR (MDRD) Non-Af 78, BUN/Creatinine Ratio 10.0, Glucose 87, Calcium 9.4 Assessment & Plan Assessment/Plan (1) Acute hyponatremia: PLAN: Plan Patient is a 54-year-old female who presented to [facility] ED on 01/19/2025 with abnormal outpatient labs. 1. Acute hyponatremia ? Admit under inpatient status to PCU. Sodium 121 on admit, chloride 82. Asymptomatic, no mental status changes noted. No prior labs available since 2018 in our system but per her PCP, sodium was within normal limits 6 months ago. Serum osmolality low, urine osmolality 100, urine sodium less than 20. TSH normal. Was started on bupropion about 1 week prior to admission, no other medication changes noted. On literature review, bupropion has been linked with hyponatremia so I suspect this is contributing. However, labs are consistent with hypovolemic hyponatremia. Will give 1 L of normal saline over 2 hours this evening and recheck BMP at midnight and again in the morning. Will discontinue Wellbutrin. 1800 mL fluid restriction ordered. If sodium improves well with normal saline, suspect patient will be okay for discharge home with Wellbutrin discontinued in the next few days. 2. Hypertension/hyperlipidemia ? Hypertensive to the 170s to 180s systolic on admit. Will continue home amlodipine and order IV hydralazine 10 mg as needed for SBP greater than 170. Continue home simvastatin. 3. Seizure disorder ? Continue home carbamazepine. 4. Tobacco dependence ? Current smoker, has decreased to 1 pack/day from 2 packs/day over the past week on Wellbutrin. Unfortunately had to discontinue Wellbutrin as above. Encouraged continued weaning of tobacco use in outpatient setting. Nicotine replacement therapy available as needed. DVT prophylaxis: Lovenox CODE STATUS: Full code, verified Expected disposition: Home, 2 to 3 days Total clinical time spent by myself addressing the patient's medical issues, reviewing all the data, and collaborating with patient's care team: 75 minutes. Charges/Coding Visit Charges Inpatient E&M: 31710 Init Hosp L3
--- NOTE | 2025-01-19 17:40 | RAD_ITS ---
PROCEDURE: CHEST PA AND LATERAL 01/19/2025 REASON FOR EXAM: SMOKER, HYPONA EVAL TECHNIQUE: CHEST PA AND LATERAL COMPARISON: None. FINDINGS: Lungs/Pleura: Clear. No pneumothorax or pleural effusion. Heart/Mediastinum: Normal in size. Aortic arch calcification. Bones/Soft tissues: Mild degenerative changes of the thoracic spine. RAD/Chest PA and Lateral IMPRESSION: No acute cardiopulmonary disease. Reading Location: [id number]
[2025-01-19 17:44] LABS: Mucous, Urine 0 SEEN /hpf (<or=2+)
[2025-01-19 18:12] LABS: Color, Urine Straw (Yellow); Glucose, Dipstick Normal (Normal); Ketone-Dipstick 5 mg/dl (Negative); Leukocyte Esterase-Dipstick Negative /ul (Negative); Nitrite-Dipstick Negative (Negative); Occult Blood-Urine 50 /ul (Negative); Protein-Dipstick 100 mg/dl (Negative); Specific Gravity, Urine 1.010 (1.002-1.030); Urine Bilirubin Dipstick Negative (Negative)
[2025-01-19 18:17] LABS: Magnesium 2.2 mg/dL (1.5-2.2)
[2025-01-19 18:26] LABS: Osmolality, Serum 258 mOsm/KG (275-295); Osmolality, Urine 100 mOsm/KG
[2025-01-19 18:42] LABS: Hematocrit 37.0 % (37-47); Hemoglobin 13.7 g/dL (12.0-15.0); Immature Granulocytes Count 0.020 X10^3/uL (0.0-0.0); Mean Corp Hgb Conc 37.0 g/dL (32-36); Mean Corpuscular Volume 86.4 fL (81-99); Mean Platelet Vol. 8.0 fl (6.2-12.0); NRBC Flagged by Analyzer 0 % (0-5); Platelet Count 227 K/mm3 (150-450); RBC Distribution Width CV 11.8 % (11.6-14.6); RBC Distribution Width SD 37.2 fl (35.1-43.9); Red Blood Count 4.28 M/mm3 (4.2-5.4); White Blood Count 4.7 K/mm3 (4.4-11.0)
[2025-01-19 19:16] LABS: Red Blood Cells-Urine 0-5 SEEN /hpf (0-5); Squamous Epithelial Cells - UA 0-5 SEEN /hpf (5-10)
--- OUTSIDE RECORDS SUMMARY | 2025-01-19 20:17 | XMS RPT_ITS | CCD ---
Author Organization [facility] Care Team Providers Care Home Coordinator Name Role Phone LEFTY BORJA Admitting Unavailable LEFTY BORJA Attending Unavailable Hudson Vidales DO Primary Care Provider Hudson Vidales DO Primary Care Provider Hudson Vidales DO Primary Care Provider Hudson Vidales DO Primary Care Provider Redd [employer] BURNER SERVICER AND INSTALLER.Shobha PHILLIP Unavailable Neel OIL BURNER SERVICER AND INSTALLER.Floyd PHILLIP Unavailable Redd OIL BURNER SERVICER AND INSTALLER.Shobha PHILLIP Unavailable Sujatha OIL BURNER SERVICER AND INSTALLER.Oksana PHILLIP Unavailable HUDSON VIDALES Primary Care Unavailable BREN HANSON Attending Unavailable HUDSON VIDALES Primary Care Unavailable BREN HANSON Referring Unavailable HUDSON VIDALES Primary Care Unavailable HUDSON VIDALES Primary Care Unavailable SHOBHA REDD Attending Unavailabl HUDSON Foreman Primary Care Unavailable SHOBHA REDD Referring Unavailabl e HUDSON VIDALES Primary Care Unavailable SHOBHA REDD Referring Unavailabl e HUDSON VIDALES Primary Care Unavailable SHOBHA REDD Referring Unavailabl e SHOBHA REDD Referring Unavailabl e HUDSON VIDALES Primary Care Unavailable GARDENIA MCFADDEN Attending Unavailable SHOBHA REDD Referring Unavailabl e HUDSON VIDALES Primary Care Unavailable GARDENIA MCFADDEN Referring Unavailable HUDSON VIDALES Primary Care Unavailable GARDENIA MCFADDEN Attending Unavailable HUDSON VIDALES Primary Care Unavailable Allergies Allergy Classification Reported Allergen(s) Allergy Type Date of Onset Reaction(s) Facility (20 sources) Seasonal allergy; Translations: [SEASONAL ALLERGIES] Allergy to substance Other: See Comments [facility] Medications Current Medications Medication Drug Class(es) Dates Sig (Normalized) Sig (Original) albuterol 0.83 mg/ml inhalation solution (20 sources) beta2-Adrenergic Agonist Start: 07-01-2024 albuterol (PROVENTIL) 5 mg/mL nebu Indications: Sinobronchitis Inhale 0.5 mL as instructed one time only for 1 dose. 1 DOSE NOW - BACK OFFICE. PLACE 0.5 ML PER DROPPER AND 2.5 ML OF NORMAL SALINE INTO RESERVOIR. 0.5 mL 07/01/2024 Active Start: 07-01-2024 End: 04-05-2025 albuterol (PROVENTIL) 2.5 mg /3 mL (0.083 %) nebulizer solution Indications: Sinobronchitis Use 3 mL via nebulizer every 4 hours as needed for wheezing/shortness of breath. 100 mL 01/05/2025 04/05/2025 Active Start: 07-01-2024 End: 07-01-2024 albuterol 2.5 mg/0.5 mL 2.5 mg nebulizer solution (PROVENTIL) Start: 06-24-2024 End: 08-13-2024 take 2 puff(s) by inhalation every four hours as needed for wheezing albuterol HFA (PROVENTIL HFA, VENTOLIN HFA) 90 mcg/actuation inhaler Inhale 2 Puffs as instructed every 4 hours as needed for wheezing/shortness of breath. 6.7 g 5 08/13/2024 Active Start: 03-27-2023 End: 06-24-2024 take 2 puff(s) by inhalation every four hours as needed for wheezing albuterol HFA (PROVENTIL HFA, VENTOLIN HFA) 90 mcg/actuation inhaler Indications: Sinobronchitis Inhale 2 Puffs as instructed every 4 hours as needed for wheezing/shortness of breath. 1 Each 03/27/2023 06/24/2024 Discontinued Comment on above: Inhale 2 Puffs as in structed every 4 hours as needed for wheezing/shortness of breath. amLODIPine 10 mg oral tablet (20 sources) Dihydropyridine Calcium Channel Kajal Start: 04-29-20 End: 08-24-19 take 1 tablet by mouth once daily amLODIPine (NORVASC) 10 mg tablet Indications: Hypertension, essential Take 1 tablet by mouth once daily. 90 tablet 3 08/23/2024 Active Start: 03-01-2021 End: 07-26-2021 take 1 tablet by mouth once daily amLODIPine (NORVASC) 10 mg tablet Indications: Hypertension, essential Take 1 tablet by mouth once daily. 90 tablet 0 07/26/2021 Active Comment on above: Take 1 tablet by ronny th once daily. amoxicillin 875 mg / clavulanate 125 mg oral tablet (4 sources) Penicillin-class Antibacterial Start: End: take 1 tablet by mouth twice daily amoxicillin-clavulana te potassium (AUGMENTIN) 875-125 mg per tablet Indications: Sinobronchitis Take 1 tablet by mouth two times a day for 10 days. 20 tablet 07/01/2024 07/11/2024 Active benzonatate 100 mg oral capsule (6 sources) Non-narcotic Antitussive Start: End: take 1 capsule by mouth three times daily as needed benzonatate (TESSALON PERLE) 100 mg capsule Indications: Sinobronchitis Take 1 capsule by mouth three times a day as needed. 30 capsule 07/01/2024 07/31/2024 Active Budesonide / formoterol (9 sources) Corticosteroid, beta2-Adrenergic Agonist Start: take 2 puff(s) by inhalation twice daily budesonide-formoterol (SYMBICORT) 160-4.5 mcg/actuation inhaler Indications: COPD, moderate (HCC) Inhale 2 Puffs as instructed two times a day. 1 Each 5 08/13/2024 Active 12 hr buPROPion hydrochloride 150 mg extended release oral tablet (1 source) Aminoketone Start: buPROPion SR (WELLBUTRIN SR) 150 mg 12 hr tablet 1 tablet two times a day. Take one twice daily 60 tablet 2 01/07/2025 Active carBAMazepine 200 mg oral tablet (20 sources) Mood Stabilizer Start: End: 026 take 1 tablet by mouth twice daily carBAMazepine (TEGRETOL) 200 mg tablet Indications: Seizure disorder (HCC) Take 1 tablet by mouth two times a day. 180 tablet 3 08/23/2024 08/18/2025 Active Start: 01-25-2022 take 1 tablet by ronny th twice daily carBAMazepine (TEGRETOL) 200 mg tablet Indications: Seizure disorder (HCC) Take 1 tablet by mouth twice daily. 90 tablet 0 01/25/2022 Active Start: 03-01-2021 End: 01-23-2022 take 1 tablet by mouth twice daily carBAMazepine (TEGRETOL) 200 mg tablet Indications: Seizure disorder (HCC) Take 1 tablet by mouth twice daily. 90 tablet 0 07/26/2021 01/23/2022 Discontinued Comment on above: Take 1 tablet by ronny th twice daily. Take 1 tablet by ronny th two times a day. citalopram 20 mg oral tablet (20 sources) Serotonin Reuptake Inhibitor Start: 12-31-2021 End: 08-23-2024 take 1 tablet by mouth once daily citalopram (CELEXA) 20 mg tablet Indications: Adjustment disorder with depressed mood Take 1 tablet by mouth once daily. 90 tablet 3 08/23/2024 Active Start: 03-01-2021 End: 07-26-2021 take 1 tablet by mouth once daily citalopram (CELEXA) 20 mg tablet Indications: Adjustment disorder with depressed mood Take 1 tablet by mouth once daily. 90 tablet 0 07/26/2021 Active Comment on above: Take 1 tablet by ronny th once daily. doxycycline monohydrate 100 mg oral tablet (4 sources) Tetracycline-class Drug Start: 5 End: 5 take 1 tablet by mouth twice daily doxycycline monohydrate 100 mg tablet Take 1 tablet by mouth two times a day for 7 days. 14 tablet 06/24/2024 07/01/2024 Active [id number] 0.3 ml EPINEPHrine 1 mg/ml auto-injector (20 sources) alpha-Adrenergic Agonist, beta-Adrenergic Agonist, Catecholamine Start: 0 End: 3 EPINEPHrine (EPIPEN) 0.3 mg/0.3 mL auto-injector Inject at onset of allergic reaction in thigh, okay to repeat with 2nd injection if needed. 2 Each 1 10/07/2022 Active Comment on above: Inject at onset of a llergic reaction in thigh, okay to repeat with 2nd injection if needed. estrogens, conjugated (snf) 0.625 mg/ml vaginal cream (20 sources) Estrogen Start: 0 End: 3 conjugated estrogens (PREMARIN) vaginal cream Use 0.5 g vaginally two times a week. 30 g 2 10/07/2022 Active Comment on above: Use 0.5 g vaginally two times a week. fluticasone propionate 0.05 mg/actuat metered dose nasal spray (20 sources) Corticosteroid Start: 5 End: 5 take 2 spray(s) nasal route once daily fluticasone (FLONASE ALLERGY RELIEF) 50 mcg/actuation nasal spray Indications: Seasonal allergic rhinitis, unspecified trigger Use 2 sprays in each nostril once daily. 1 each 3 10/27/2024 11/26/2024 Active Start: 01-05-2024 End: 10-18-2024 take 2 spray(s) by mouth once daily fluticasone (FLONASE) 50 mcg/actuation nasal spray Use 2 Sprays in each nostril once daily. Rinse mouth after use. 15.8 mL 5 01/05/2024 10/18/2024 Active Start: 12-05-2022 End: 01-04-2023 take 2 spray(s) by mouth once daily fluticasone (FLONASE) 50 mcg/actuation nasal spray Use 2 Sprays in each nostril once daily. Rinse mouth after use. 15.8 mL 5 12/05/2022 01/04/2023 Active Start: 11-28-2021 End: 12-28-2021 take 2 spray(s) by mouth once daily fluticasone (FLONASE) 50 mcg/actuation nasal spray Use 2 Sprays in each nostril once daily. Rinse mouth after use. 15.8 mL 5 11/28/2021 12/28/2021 Active Start: 01-15-2021 End: 07-26-2021 take 2 spray(s) by mouth once daily fluticasone (FLONASE) 50 mcg/actuation nasal spray Indications: Chronic SAUL (middle ear effusion), right Use 2 Sprays in each nostril once daily. Rinse mouth after use. 3 Bottle 3 01/15/2021 07/26/2021 Discontinued Comment on above: Use 2 Sprays in each nostril once daily. Rinse mouth after use. ibuprofen 600 mg oral tablet (20 sources) Nonsteroidal Anti-inflammatory Drug Start : 09-03 End: 10-07 take 1 tablet by mouth every six hours as needed ibuprofen (MOTRIN) 600 mg tablet Take 1 tablet by mouth every 6 hours as needed for Pain. 40 tablet 09/03/2018 Active Comment on above: Take 1 tablet by ronny th every 6 hours as needed for Pain. Take 1 tablet by ronny th every 6 hours as needed for Pain. Take every 6 hours for first three days. Then take every 6 hours as needed. Take with food. methylPREDNISolone (3 sources) Corticosteroid Start : 07-01 End: 07-07 methylPREDNISolone (MEDROL, JENNIFER,) 4 mg Dose-Pack Indications: Sinobronchitis Take as instructed per package. 21 tablet 07/01/2024 07/07/2024 Active polyethylene glycol 3350 169473 mg / potassium chloride 2970 mg / sodium bicarbonate 6740 mg / sodium chloride 5860 mg / sodium sulfate 60741 mg powder for oral solution (1 source) Osmotic Laxative Start : 10-07 End: 10-07 peg 3350-Electrolytes (GOLYTELY) 236-22.74-6.74 -5.86 gram suspension Indications: Screening for colon cancer , Special screening for malignant neoplasms, colon Take 4,000 mL by mouth one time only for 1 dose. Refer to printed prep instructions from your provider. 4000 mL 0 10/07/2022 10/07/2022 Active Comment on above: Take 4,000 mL by ronny th one time only for 1 dose. Refer to printed prep instructions from your provider. predniSONE 20 mg oral tablet (1 source) Start : 06-24 End: 06-28 take 2 tablets by mouth once daily at mealtime predniSONE (DELTASONE) 20 mg tablet Take 2 tablets by mouth once daily for 4 days. Take daily with food. 8 tablet 06/24/2024 06/28/2024 Active simvastatin 40 mg oral tablet (20 sources) HMG-CoA Reductase Inhibitor Start : 12-31 End: 08-23 take 1 tablet by mouth once daily at bedtime simvastatin (ZOCOR) 40 mg tablet Indications: Hyperlipidemia, mixed Take 1 tablet by mouth daily at bedtime. 90 tablet 3 08/23/2024 Active Start: 03-01-2021 End: 07-26-2021 take 1 tablet by mouth once daily at bedtime simvastatin (ZOCOR) 40 mg tablet Indications: Hyperlipidemia, mixed Take 1 tablet by mouth daily at bedtime. 90 tablet 0 07/26/2021 Active Comment on above: Take 1 tablet by ronny th daily at bedtime. Completed/Discontinued Medications Medication Drug Class(es) Dates Sig (Normalized) Sig (Original) bisacodyl 5 mg delayed release oral tablet (8 sources) Stimulant Laxative Start: 03-01-2021 End: 10-07-2022 Bisacodyl (DULCOLAX) 5 mg tab Indications: Screening for colon cancer Use as directed for Miralax / Gatorade Bowel Prep Kit 4 tablet 03/01/2021 10/07/2022 Discontinued Comment on above: Use as directed for Miralax / Gatorade Bowel Prep Kit cholecalciferol 0.05 mg oral tablet (8 sources) Vitamin D End: 10-07-2022 take 1 tablet by mouth once daily cholecalciferol (VITAMIN D3) 50 mcg (2,000 unit) tablet Take 2,000 Units by mouth once daily. 10/07/2022 Discontinued Comment on above: Take 2,000 Units by mouth once daily. docusate sodium 100 mg oral capsule (8 sources) Start: 09-03-2018 End: 10-07-2022 take 1 capsule by mouth twice daily docusate sodium (COLACE) 100 mg capsule Take 1 capsule by mouth twice daily. 60 capsule 09/03/2018 10/07/2022 Discontinued Comment on above: Take 1 capsule by mo ut twice daily. Gatorade Sports Drink (8 sources) Start: 03-01-2021 End: 10-07-2022 Gatorade Sports Drink Indications: Screening for colon cancer Use as directed for Miralax / Gatorade Bowel Prep Kit 03/01/2021 10/07/2022 Discontinued Start: 03-01-2021 End: 10-07-2022 Gatorade Sports Drink Indica tions: Screening for colon cancer Use as directed for Miralax / Gatorade Bowel Prep Kit 0 03/01/2021 10/07/2022 Discontinued Start: 03-01-2021 Gatorade Sport s Drink Indications: Screening for colon cancer Use as directed for Miralax / Gatorade Bowel Prep Kit 0 03/01/2021 Active Comment on above: Use as directed for Miralax / Gatorade Bowel Prep Kit polyethylene glycol 3350 79235 mg powder for oral solution (8 sources) Osmotic Laxative Start: 03-01-2021 End: 10-07-2022 polyethylene glycol 3350 (MIRALAX, GLYCOLAX) 17 gram/dose powder Indications: Screening for colon cancer Use as directed for Miralax / Gatorade Bowel Prep Kit 238 g 03/01/2021 10/07/2022 Discontinued Comment on above: Use as directed for Miralax / Gatorade Bowel Prep Kit Problems Active Problems Problem Classification Problem Date Documented Da te Episodic/Chronic Adjustment disorders (20 sources) Adjustment disorder with depressed mood; Translations: [Adjustment disorder with depressed mood] Onset: 04-08-2007 01-29-2019 Chronic Cancer of other female genital organs (20 sources) Vulval intraepithelial neoplasia grade 3; 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] Onset: 01-29-2019 01-29-2019 Chronic Chronic obstructive pulmonary disease and bronchiectasis (10 sources) Pulmonary emphysema; Translations: [Emphysema, unspecified] Onset: 08-13-2024 08-04-2024 Chronic Disorders of lipid metabolism (20 sources) Mixed hyperlipidemia; Translations: [Mixed hyperlipidemia] Onset: 08-21-2018 08-21-2018 Chronic Epilepsy; convulsions (20 sources) Seizure disorder; Translations: [Epilepsy, unspecified, not intractable, without status epilepticus] Onset: 04-08-2007 06-26-2015 Chronic Essential hypertension (20 sources) Benign essential hypertension; Translations: [Essential (primary) hypertension] Onset: 04-08-2007 01-29-2019 Chronic Nutritional deficiencies (2 sources) Vitamin D deficiency; Translations: [Vitamin D deficiency, unspecified] Onset: 01-18-2025 01-18-2025 Chronic Other gastrointestinal disorders (1 source) Diarrhea; Translations: [Diarrhea, unspecified] 07-01-2024 Episodic Other lower respiratory disease (1 source) Cough; Translations: [Acute cough] 04-04-2023 Episodic Other lower respiratory disease (1 source) Wheezing; Translations: [Wheezing] 04-04-2023 Episodic Other lower respiratory disease (2 sources) Multiple nodules of lung; Translations: [Other nonspecific abnormal finding of lung field] 08-13-2024 Episodic Other lower respiratory disease (1 source) Other nonspecific abnormal finding of lung field; Translations: [Lung nodules] Onset: 01-07-2025 Episodic Other nervous system disorders (1 source) Other acute postprocedural pain; Translations: [Other acute postprocedural pain] Onset: 09-03-2018 Episodic Other screening for suspected conditions (not mental disorders or infectious disease) (20 sources) Patient encounter status; Translations: [Encounter for screening mammogram for malignant neoplasm of breast] Onset: 01-18-2025 Episodic Other upper respiratory disease (1 source) Seasonal allergy; Translations: [Other seasonal allergic rhinitis] 08-13-2024 Chronic Other upper respiratory disease (1 source) Seasonal allergic rhinitis; Translations: [Other seasonal allergic rhinitis] 10-27-2024 Chronic Other upper respiratory disease (1 source) Other seasonal allergic rhinitis; Translations: [Seasonal allergies] Onset: 08-13-2024 Chronic Other upper respiratory infections (7 sources) Chronic sinusitis; Translations: [Chronic sinusitis, unspecified] Onset: 07-01-2024 04-04-2023 Chronic Residual codes; unclassified (2 sources) Tobacco user; Translations: [Tobacco use] Episodic Residual codes; unclassified (1 source) Viral syndrome; Translations: [Other general symptoms and signs] 07-01-2024 Episodic Screening and history of mental health and substance abuse codes (2 sources) Encounter for screening for depression; Translations: [Encounter for screening examination for other mental health and behavioral disorders] Onset: 01-18-2025 Episodic Substance-related disorders (20 sources) Smoker; Translations: [Nicotine dependence, unspecified, uncomplicated] Onset: 08-21-2018 08-21-2018 Chronic Unclassified (3 sources) Patient encounter status 08-10-2024 Past or Other Problems Problem Classification Problem Date Documented Da te Episodic/Chronic Chronic obstructive pulmonary disease and bronchiectasis (1 source) Bronchitis, not specified as acute or chronic; Translations: [Sinobronchitis] Onset: 07-01-2024 Episodic Other gastrointestinal disorders (1 source) Diarrhea, unspecified; Translations: [Diarrhea, unspecified type] Onset: 07-01-2024 Episodic Other lower respiratory disease (10 sources) Chronic cough; Translations: [Chronic cough] Onset: 08-04-2024 07-19-2024 Episodic Residual codes; unclassified (1 source) Other general symptoms and signs; Translations: [Flu-like symptoms] Onset: 07-01-2024 Episodic Results Test Name Value Interpretation Reference Range Facility 25(OH)D3 [facility] [place] 2024 25-hydroxyvitamin D3 [Mass/Vol] 33.9 ng/mL Normal 31.0-80.0 [facility] Comment on above: Order Comment: Anel littlejohn Type: BLOOD SPECIMENOrdering Facility: [facility] Address: [address] [place] [address] Result Comment: Clas sification of 25 OH Vitamin D status: Deficiency/Insufficiency: < or = 30 ng/ml. Sufficiency/Optimal Levels: 31-80 ng/mL Toxicity: > 100 ng/mL. Test performed by chemiluminescent immunoassay. Performed By: #### 1 989-3 ####[facility] LABCLIA [id number] [place] [address] [place] CBC panel Auto (Bld)on 01-18 Erythrocyte distribution width (RBC) [Ratio] 12.0 % Normal 11.5-15.0 [facility] Comment on above: Order Comment: Anel littlejohn Type: BLOOD SPECIMENOrdering Facility: [facility] Address: [address] [place] [address] Performed By: #### 5 8410-2 ####[facility]CLIA [id number] [place] [address] [place] Hematocrit (Bld) [Volume fraction] 42.0 % Normal 36.0-46.0 [facility] Comment on above: Order Comment: Anel littlejohn Type: BLOOD SPECIMENOrdering Facility: [facility] Address: [address] [place] [address] Performed By: #### 5 8410-2 ####[facility] LABIA [id number] [place] [address] [place] Hemoglobin (Bld) [Mass/Vol] 15.2 g/dL Normal 11.5-15.5 [facility] Comment on above: Order Comment: Speci men Type: BLOOD SPECIMENOrdering Facility: [facility] Address: [address] [place] [address] Performed By: #### 5 8410-2 ####[facility] LABIA [id number] [place] [address] [place] MCH (RBC) [Entitic mass] 31.3 pg Normal 26.0-34.0 [facility] Comment on above: Order Comment: Speci men Type: BLOOD SPECIMENOrdering Facility: [facility] Address: [address] [place] [address] Performed By: #### 5 8410-2 ####[facility] LABIA [id number] [address] [place] MCHC (RBC) [Mass/Vol] 36.2 g/dL High 30.5-36.0 [facility] Comment on above: Order Comment: Speci men Type: BLOOD SPECIMENOrdering Facility: [facility] Address: [address] [place] [address] Performed By: #### 5 8410-2 ####[facility] LABIA [id number] [place] [address] [place] MCV (RBC) [Entitic vol] 86.6 fL Normal 80.0-100.0 [facility] Comment on above: Order Comment: Speci men Type: BLOOD SPECIMENOrdering Facility: [facility] Address: [address] [place] [address] Performed By: #### 5 8410-2 ####[facility] LABIA [id number] [place] [address] [place] Nucleated RBC (Bld) [#/Vol] 10*3/uL Normal <0.01 [facility] Comment on above: Order Comment: Speci men Type: BLOOD SPECIMENOrdering Facility: [facility] Address: [address] [place] [address] Performed By: #### 5 8410-2 ####[facility]CLIA [id number] [place] [address] [place] Platelet mean volume (Bld) [Entitic vol] 8.5 fL Low 9.0-12.7 [facility] Comment on above: Order Comment: Speci men Type: BLOOD SPECIMENOrdering Facility: [facility] Address: [address] [place] [address] Performed By: #### 5 8410-2 ####[facility]CLIA [id number] [place] [address] [place] Platelets (Bld) [#/Vol] 265 10*3/uL Normal 150-400 [facility] Comment on above: Order Comment: Speci men Type: BLOOD SPECIMENOrdering Facility: [facility] Address: [address] [place] [address] Performed By: #### 5 8410-2 ####[facility] LABIA [id number] [place] [address] [place] RBC (Bld) [#/Vol] 4.85 10*6/uL Normal 3.90-5.20 [facility] Comment on above: Order Comment: Speci men Type: BLOOD SPECIMENOrdering Facility: [facility] Address: [address] [place] [address] Performed By: #### 5 8410-2 ####[facility] LABCLIA [id number] [place] [address] [place] WBC (Bld) [#/Vol] 5.42 10*3/uL Normal 3.70-11.00 [facility] Comment on above: Order Comment: Speci men Type: BLOOD SPECIMENOrdering Facility: [facility] Address: [address] [place] [address] Performed By: #### 5 8410-2 ####[facility] LABCLIA [id number] [place] [address] [place] CNOVon 01-18-2025 CNOV Office Visit (FAMPWS ) SUSANNA MELTON ([id number]) 1970 F Date Time Provider Department 01/18/25 8:20 AM [facility] During your visit today, we recorded the following information about you: Pulse Respiration Blood pressure Weight 93/minute 16/minute 152/83 65.4 kg Bren Hanson PA-C 01/18/2025 8:45 AM Signed - Continue taking Symbicort as prescribed and use your albuterol inhaler as needed for breathing symptoms. - Continue taking Wellbutrin as prescribed by pulmonary ; allow a few weeks for it to take effect, and contact us if your mood or smoking urges do not improve so we can adjust the dose. - Take Vitamin D3 (1,000 IU) once daily with your largest (fatty) meal to improve absorption. - Work on reducing your smoking from one pack per day toward half a pack per day. - Call the number provided to locate and schedule functional capacity testing; bring your disability paperwork to that appointment for completion. consult ordered. - Schedule a screening mammogram as ordered. - Arrange a general surgery consult for a colonoscopy and follow all prep instructions given by the surgery team. - Schedule a yearly gynecology exam with Pap smear through [facility]. - Complete screening lab tests (cholesterol, blood sugar, vitamin D, etc.) as ordered. - Schedule and attend your follow-up appointment with Dr. Vidales?s office to review your lab results. Bren Hanson PA-C 01/18/2025 9:06 AM Signed Recording using [employer] software for draft documentation of the visit was discussed with the patient/authorized equal opportunity representative; all questions welcomed and answered. Patient/authorized equal opportunity representative agreed to proceed 01/18/2025 Disability Paperwork: - Denied temporary total disability due to insufficient work history. - Applying for disability due to asthma and COPD. Follows with pulmonology , appointment 01/07/25 COPD: - Diagnosed with COPD, currently managed by Dr. Mcfadden. Last - Recent pulmonary function tests show moderate COPD. - CT chest revealed evidence of emphysema and small pulmonary nodules. F/u CT in 1 year to monitor per pulmonary - Prescribed Symbicort and albuterol PRN; adherent to Symbicort. - 40 pack-year smoking history; reduced from 2 packs/day to 1 pack/day. - Started on Wellbutrin last week to aid smoking cessation by pulmonary Request Disability-has paperwork-requires functional capacity testing has not had compelted. denies any worsenig symptoms today. Asthma: - History of asthma, contributing to respiratory issues. Epilepsy: - Well-controlled on Tegretol 200 mg. - No recent seizures. Hypertension: - Managed with Norvasc 10 mg. - Recent blood pressure readings have been elevated. denies chest pain, MORALES, leg swelling other than occasional mild improves with elevation STACEY. Hyperlipidemia: - Managed with Zocor. no recent labs Depression: - Marilynn reports some depression sypmtoms the last 2 weeks, several days. no SI - Started on Wellbutrin last week. - Denies interest in counseling. Anxiety: as above Seasonal Allergies: - History of seasonal allergies. Vitamin D Deficiency: - Taking vitamin D3 1,000 IU daily, purchased over the counter. - Takes vitamin D on an empty stomach. Current Outpatient Medications on File Prior to Visit Medication Sig buPROPion SR (WELLBUTRIN SR) 150 mg 12 hr tablet 1 tablet two times a day. Take one twice daily albuterol (PROVENTIL) 2.5 mg /3 mL (0.083 %) nebulizer solution Use 3 mL via nebulizer every 4 hours as needed for wheezing/shortness of breath. carBAMazepine (TEGRETOL) 200 mg tablet Take 1 tablet by mouth two times a day. citalopram (CELEXA) 20 mg tablet Take 1 tablet by mouth once daily. simvastatin (ZOCOR) 40 mg tablet Take 1 tablet by mouth daily at bedtime. amLODIPine (NORVASC) 10 mg tablet Take 1 tablet by mouth once daily. budesonide-formoterol (SYMBICORT) 160-4.5 mcg/actuation inhaler Inhale 2 Puffs as instructed two times a day. albuterol HFA (PROVENTIL HFA, VENTOLIN HFA) 90 mcg/actuation inhaler Inhale 2 Puffs as instructed every 4 hours as needed for wheezing/shortness of breath. albuterol (PROVENTIL) 5 mg/mL nebu Inhale 0.5 mL as instructed one time only for 1 dose. 1 DOSE NOW - BACK OFFICE. PLACE 0.5 ML PER DROPPER AND 2.5 ML OF NORMAL SALINE INTO RESERVOIR. EPINEPHrine (EPIPEN) 0.3 mg/0.3 mL auto-injector Inject at onset of allergic reaction in thigh, okay to repeat with 2nd injection if needed. ibuprofen (MOTRIN) 600 mg tablet Take 1 tablet by mouth every 6 hours as needed for Pain. conjugated estrogens (PREMARIN) vaginal cream Use 0.5 g vaginally two times a week. (Patient not taking: Reported on 01/07/2025) No current facility-administered medications on file prior to visit. PAST MEDICAL HISTORY Diagnosis Date Depression HLD (hyperlipidemia) Hyponat (more content not included)... Normal [facility] Comprehensive metabolic 2000 panelon 01-18-2025 Albumin [Mass/Vol] 4.1 g/dL Normal 3.9-4.9 [facility] Comment on above: Order Comment: Speci men Type: BLOOD SPECIMENOrdering Facility: [facility] Address: [address] [place] [address] Performed By: #### 2 4323-8, 1346-3, 12743-2 ####[facility] LABCLIA [id number] [address] [address] [place] ALP [Catalytic activity/Vol] 94 U/L Normal 34-123 [facility] Comment on above: Order Comment: Speci men Type: BLOOD SPECIMENOrdering Facility: [facility] Address: [address] [place] [address] Performed By: #### 2 4323-8, 6-3, 80368-3 ####[facility] LABCLIA [id number] [facility] [address] [address] [place] ALT [Catalytic activity/Vol] 19 U/L Normal 7-38 [facility] Comment on above: Order Comment: Speci men Type: BLOOD SPECIMENOrdering Facility: [facility] Address: [address] [place], [place] [address] Performed By: #### 2 4323-8, 3015-3, 49842-8 ####[facility] LABCLIA [id number] [facility] [address] [address] [place] Anion gap [Moles/Vol] 12 mmol/L Normal 8-15 [facility] Comment on above: Order Comment: Speci men Type: BLOOD SPECIMENOrdering Facility: [facility] Address: [address] [place] [address] Performed By: #### 2 4323-8, 3, 47571-0 ####[facility] LABCLIA [id number] [address] [address] [place] AST [Catalytic activity/Vol] 26 U/L Normal 13-35 [facility] Comment on above: Order Comment: Speci men Type: BLOOD SPECIMENOrdering Facility: [facility] Address: [address] [place], [place] [address] Performed By: #### 2 4323-8, 3, 46613-8 ####[facility] LABCLIA [id number] [facility] [address] [address] [place] Bilirubin [Mass/Vol] 0.3 mg/dL Normal 0.2-1.3 [facility] Comment on above: Order Comment: Speci men Type: BLOOD SPECIMENOrdering Facility: [facility] Address: [address] [place] [address] Performed By: #### 2 4323-8, 6-3, 68211-8 ####[facility] LABCLIA [id number] [address] [place] [address] [place] Calcium [Mass/Vol] 9.8 mg/dL Normal 8.5-10.2 [facility] Comment on above: Order Comment: Speci men Type: BLOOD SPECIMENOrdering Facility: [facility] Address: [address] [place] [address] Performed By: #### 2 4323-8, 3016-3, 29207-9 ####[facility] LABCLIA [id number] [place] [id number] [place] Chloride [Moles/Vol] 83 mmol/L Low 98-107 [facility] Comment on above: Order Comment: Speci men Type: BLOOD SPECIMENOrdering Facility: [facility] Address: [address] [place] [address] Performed By: #### 2 4323-8, 6-3, 22175-0 ####[facility] LABCLIA [id number] [place] [address] [place] CO2 [Moles/Vol] 27 mmol/L Normal 22-30 [facility] Comment on above: Order Comment: Speci men Type: BLOOD SPECIMENOrdering Facility: [facility] Address: [address] [place] [address] Performed By: #### 2 4323-8, 6-3, 03430-9 ####[facility] LABCLIA [id number] [place] [id number] [place] Creatinine [Mass/Vol] 0.79 mg/dL Normal 0.58-0.96 [facility] Comment on above: Order Comment: Speci men Type: BLOOD SPECIMENOrdering Facility: [facility] Address: [address] [place] [address] Performed By: #### 2 4323-8, 3016-3, 72619-0 ####[facility] LABCLIA [id number] [address] [place] [address] [place] eGFRcr SerPlBld CKD-EPI 2021 88 mL/min/1.73m??? Normal >=60 [facility] Comment on above: Order Comment: Anel littlejohn Type: BLOOD SPECIMENOrdering Facility: [facility] Address: [address] [place] [address] Result Comment: Zenobia mated Glomerular Filtration Rate (eGFR) is calculated using the 2020 CKD-EPI creatinine equation. This equation utilizes serum creatinine, sex, and age as parameters. The creatinine assay has traceable calibration to isotope dilution-mass spectrometry. Refer to KDIGO guidelines for clinical interpretation. In patients with unstable renal function, e.g. those with acute kidney injury, the eGFR may not accurately reflect actual GFR. Performed By: #### 2 4323-8, 3016-3, 14130-7 ####[facility] LABIA [id number] [address] [address] [place] Glucose [Mass/Vol] 96 mg/dL Normal 74-99 [facility] Comment on above: Order Comment: Anel littlejohn Type: BLOOD SPECIMENOrdering Facility: [facility] Address: [address] [place] [address] Result Comment: The [place] Diabetes Association (ADA) provides guidance for cutoff values for fasting glucose and random glucose. The ADA defines fasting as no caloric intake for at least 8 hours. Fasting plasma glucose results between 100 to 125 mg/dL indicate increased risk for diabetes (prediabetes). Fasting plasma glucose results greater than or equal to 126 mg/dL meet the criteria for diagnosis of diabetes. In the absence of unequivocal hyperglycemia, results should be confirmed by repeat testing. In a patient with classic symptoms of hyperglycemia or hyperglycemic crisis, random plasma glucose results greater than or equal to 200 mg/dL meet the criteria for diagnosis of diabetes. Reference: Standards of Medical Care in Diabetes 2016, [place] Diabetes Association. Diabetes Care. 2016.39(Suppl 1). Performed By: #### 2 4323-8, 3016-3, 44430-0 ####[facility] LABIA [id number] [address] [address] [place] Potassium [Moles/Vol] 3.5 mmol/L Low 3.7-5.1 [facility] Comment on above: Order Comment: Speci men Type: BLOOD SPECIMENOrdering Facility: [facility] Address: [address] [place], [place] [address] Performed By: #### 2 4323-8, 3, 34469-2 ####[facility] LABCLIA [id number] [facility] [id number] [address] [place] Protein [Mass/Vol] 6.9 g/dL Normal 6.3-8.0 [facility] Comment on above: Order Comment: Speci men Type: BLOOD SPECIMENOrdering Facility: [facility] Address: [address] [place], [place] [address] Performed By: #### 2 4323-8, 3, ####[facility] LABCLIA [id number] [facility] [address] [address] [place] Sodium [Moles/Vol] 122 mmol/L Low 136-144 [facility] Comment on above: Order Comment: Speci men Type: BLOOD SPECIMENOrdering Facility: [facility] Address: [address] [place], [place] [address] Performed By: #### 2 4323-8, 3, ####[facility] LABCLIA [id number] [facility] [address] [place] [address] [place] Urea nitrogen [Mass/Vol] 7 mg/dL Normal 7-21 [facility] Comment on above: Order Comment: Speci men Type: BLOOD SPECIMENOrdering Facility: [facility] Address: [address] [place] [address] Performed By: #### 2 4323-8, 3, ####[facility] LABCLIA [id number] [facility] [address] [address] [place] HbA1c (Bld)on 01-18-2025 Average glucose Estimated from glycated hemoglobin (Bld) [Mass/Vol] 94 mg/dL Normal [facility] Comment on above: Order Comment: Yelenai men Type: BLOOD SPECIMENOrdering Facility: [facility] Address: [address] [place] [address] Result Comment: eAG: (Estimated average glucose) is a calculated value from HgbA1c and is equal opportunity representative of the average blood glucose level in the last 2-3 month period. Performed By: #### 5 5454-3 ####[facility] LABCLIA [id number] [place] [address] [place] HbA1c (Bld) [Mass fraction] 4.9 % Normal 4.3-5.6 [facility] Comment on above: Order Comment: Anel men Type: BLOOD SPECIMENOrdering Facility: [facility] Address: [address] [place] [address] Result Comment: Amer [place] Diabetes Association guidelines indicate that patients with HgbA1c in the range 5.7-6.4% are at increased risk for development of diabetes, and intervention by lifestyle modification may be beneficial. HgbA1c greater or equal to 6.5% is considered diagnostic of diabetes. Performed By: #### 5 5454-3 ####[facility] LABCLIA [id number] [place] [address] [place] Lipid 1996 panelon 5 Cholesterol [Mass/Vol] 176 mg/dL Normal <200 [facility] Comment on above: Order Comment: Anel men Type: BLOOD SPECIMENOrdering Facility: [facility] Address: [address] [place] [address] Result Comment: <200 mg/dL, Desirable 200-239 mg/dL, Borderline high >239 mg/dL, High Performed By: #### 2 4323-8, 3016-3, 87389-8 ####[facility] LABCLIA [id number] [place] [address] [place] Cholesterol in HDL [Mass/Vol] 56 mg/dL Normal >39 [facility] Comment on above: Order Comment: Yelenai men Type: BLOOD SPECIMENOrdering Facility: [facility] Address: [address] [place], [place] [address] Result Comment: 40-5 9 mg/dL, Acceptable >59 mg/dL, High: Negative risk factor for coronary heart disease <40 mg/dL, Low: Positive risk factor for coronary heart disease Performed By: #### 2 4323-8, 3015-3, 88930-9 ####[facility] LABCLIA [id number] [facility] [place] [id number] [place] Cholesterol in LDL [Mass/Vol] 97 mg/dL Normal <100 [facility] Comment on above: Order Comment: Speci men Type: BLOOD SPECIMENOrdering Facility: [facility] Address: [address] [place] [address] Result Comment: <100 mg/dL, Optimal 100-129 mg/dL, Near optimal/above optimal 130-159 mg/dL, Borderline high 160-189 mg/dL, High >189 mg/dL, Very high Secondary prevention optimal LDL Cholesterol levels are recommended to be <70 mg/dL LDL cholesterol is calculated using the Snow-NIH equation. Performed By: #### 2 4323-8, 3015-08, ####[facility] LABCLIA [id number] [address] [place] Cholesterol in LDL/Cholesterol in HDL [Mass ratio] 1.73 {ratio} Normal <2.54 [facility] Comment on above: Order Comment: Yelenai men Type: BLOOD SPECIMENOrdering Facility: [facility] Address: [address] [place] [address] Result Comment: Refe marielce: 1. National Cholesterol Education Program ATP III Guideline At-A-Glance Quick Desk Reference: National Heart, Lung, and Blood [place]. National Institutes of Health. 2001: NIH Publication No. 01-3305. 2. An International Atherosclerosis Society position paper: global recommendations for the management of dyslipidemia: executive summary, Atherosclerosis. 2014: 232(2):410-413. Performed By: #### 2 4323-8, 6-3, 63225-0 ####[facility] LABCLIA [id number] [address] [address] [place] Cholesterol in VLDL [Mass/Vol] 21 mg/dL Normal <30 [facility] Comment on above: Order Comment: Speci men Type: BLOOD SPECIMENOrdering Facility: [facility] Address: [address] [place] [address] Performed By: #### 2 4323-8, 6-3, 30761-2 ####[facility] LABCLIA [id number] [address] [address] [place] Cholesterol non HDL [Mass/Vol] 120 mg/dL Normal <130 [facility] Comment on above: Order Comment: Speci men Type: BLOOD SPECIMENOrdering Facility: [facility] Address: [address] [place] [address] Result Comment: <130 mg/dL, Optimal 130-159 mg/dL, Near optimal/above optimal 160-189 mg/dL, Borderline high 190-219 mg/dL, High >219 mg/dL, Very high Secondary prevention optimal non HDL Cholesterol levels are recommended to be <100 mg/dL Performed By: #### 2 4323-8, 3015-3, 50851-7 ####[facility] LABCLIA [id number] [place] [address] [place] Cholesterol.total/C holesterol in HDL [Mass ratio] 3.14 {ratio} Normal <5.10 [facility] Comment on above: Order Comment: Speci men Type: BLOOD SPECIMENOrdering Facility: [facility] Address: [address] [place] [address] Performed By: #### 2 4323-8, 3015-3, 35329-4 ####[facility] LABCLIA [id number] [place] [id number] [place] FASTING TIME 12 hrs Normal [facility] Comment on above: Order Comment: Speci men Type: BLOOD SPECIMENOrdering Facility: [facility] Address: [address] [place], [place] [address] Performed By: #### 2 4323-8, 3015-3, 90450-1 ####[facility] LABCLIA [id number] [place] [id number] [place] Triglyceride [Mass/Vol] 129 mg/dL Normal <150 [facility] Comment on above: Order Comment: Speci men Type: BLOOD SPECIMENOrdering Facility: [facility] Address: [address] [place] [address] Result Comment: <150 mg/dL, Normal 150-199 mg/dL, Borderline high 200-499 mg/dL, High >499 mg/dL, Very high Performed By: #### 2 4323-8, 3016-3, 26513-1 ####[facility] LABCLIA [id number] [place] [address] [place] TSH SerPl-aCncon 01-18-2025 TSH Qn 3.060 m[IU]/L Normal 0.270-4.200 [facility] Comment on above: Order Comment: Speci men Type: BLOOD SPECIMENOrdering Facility: [facility] Address: [address] [place] [address] Performed By: #### 2 4323-8, 3016-3, 43662-4 ####[facility] LABIA [id number] [place] [id number] [place] CNOVon 01-07-2025 CNOV Office Visit (PULMWS ) SUSANNA MELTON ([id number]) 1970 F Date Time Provider Department 01/07/25 10:30 AM GARDENIA MCFADDEN During your visit today, we recorded the following information about you: Pulse Respiration Blood pressure Weight 110/minute 20/minute 160/90 65.3 kg Gardenia Mcfadden MD 01/07/2025 10:48 AM Signed . Respiratory [place] Note Patient name: Susanna Melton PCP: Hudson Vidales DO CC: COPD HPI: Susanna Melton 54 year old female current 19-loyn-bbkb smoker with PMH significant for epilepsy, HTN, hyponatremia, depression, seasonal allergies s/p allergy shots in the past who was recently seen for chronic cough and recurrent bronchitis. Pulmonary function test showed moderate COPD and she had evidence of emphysema on CT of the chest as well as multiple 5 mm nodules. Smoking cessation was strongly encouraged, recommended repeat CT at 1 year, started Symbicort. She presents today for follow-up visit. Laboratory test shows no evidence of eosinophilia and her alpha-1 antitrypsin level is normal. She has found Symbicort to be helpful for her pulmonary symptoms. No dysphonia, sore throat or thrush. She has cut back from 2 packs/day to 1 pack/day and states that she finds complete abstinence difficult as her boyfriend smokes. She had tried Chantix in the past but this resulted in significant palpitations and tremors. Inquiring about use of Wellbutrin. No current cough or mucus production. She has had some increased dyspnea with the humidity and poor air quality. DATA: Labs: Component Ref Range AND Units 4 mo ago Alpha 1 Antitrypsin 90 - 200 mg/dL 189 Component Ref Range AND Units 4 mo ago 4 yr ago 7 yr ago Abs Eosin <0.46 k/uL 0.08 PAST MEDICAL HISTORY Diagnosis Date Depression HLD (hyperlipidemia) Hyponatremia Seasonal allergies Unspecified epilepsy without mention of intractable epilepsy (HCC) Epilepsy Unspecified essential hypertension Essential hypertension ALLERGIES Allergen Reactions Seasonal Allergies Other: See Comments albuterol (PROVENTIL) 2.5 mg /3 mL (0.083 %) nebulizer solution Use 3 mL via nebulizer every 4 hours as needed for wheezing/shortness of breath. carBAMazepine (TEGRETOL) 200 mg tablet Take 1 tablet by mouth two times a day. citalopram (CELEXA) 20 mg tablet Take 1 tablet by mouth once daily. simvastatin (ZOCOR) 40 mg tablet Take 1 tablet by mouth daily at bedtime. amLODIPine (NORVASC) 10 mg tablet Take 1 tablet by mouth once daily. budesonide-formoterol (SYMBICORT) 160-4.5 mcg/actuation inhaler Inhale 2 Puffs as instructed two times a day. albuterol HFA (PROVENTIL HFA, VENTOLIN HFA) 90 mcg/actuation inhaler Inhale 2 Puffs as instructed every 4 hours as needed for wheezing/shortness of breath. albuterol (PROVENTIL) 5 mg/mL nebu Inhale 0.5 mL as instructed one time only for 1 dose. 1 DOSE NOW - BACK OFFICE. PLACE 0.5 ML PER DROPPER AND 2.5 ML OF NORMAL SALINE INTO RESERVOIR. EPINEPHrine (EPIPEN) 0.3 mg/0.3 mL auto-injector Inject at onset of allergic reaction in thigh, okay to repeat with 2nd injection if needed. ibuprofen (MOTRIN) 600 mg tablet Take 1 tablet by mouth every 6 hours as needed for Pain. conjugated estrogens (PREMARIN) vaginal cream Use 0.5 g vaginally two times a week. (Patient not taking: Reported on 01/07/2025) Social History Tobacco Use Smoking status: Every Day Current packs/day: 1.50 Average packs/day: 1.5 packs/day for 41.0 years (61.5 ttl pk-yrs) Types: Cigarettes Start date: 01/02/1984 Smokeless tobacco: Never Tobacco comments: Is down to a pack a day over the past 3 months (since July 2022) Vaping Use Vaping status: Never Used Substance Use Topics Alcohol use: No Drug use: No PMH, Social history, family history and surgical history reviewed and updated in EMR REVIEW OF SYSTEMS: CONSTITUTIONAL: No fevers, chills, nightsweats, unintended weight loss HEENT: Denies frequent or severe heaches, nasal congestion/sinus symptoms, problematic allergy problems. EYES: No diplopia or blurry vision. CARDIOVASCULAR: No chest pain, dyspnea, palpitations, orthopnea, PND, ankle edema. PULM: No dyspnea, unexplained cough. GI: No dysphagia/odynophagia, problematic reflux, constipation, diarrhea, changes in stool habits, hematochezia, melena. : No new urinary complaints, including dysuria, gross hematuria or pyuria. NEURO: No new balance problems, peripheral weakness/paresthesias or numbness of concern. MUSC-SKEL: No new joint pain, swelling, or erythema. PSY: No concerns regarding depression, anxiety or panic. INTEGUMENTARY: No new skin changes (rash, new or changing mole, new growth) PHYSICAL EXAMINATION: BP 160/90 Pulse 110 Resp 20 Wt 144 lb (65.3kg) SpO2 96% LMP 08/05/2007 General Appearance: Age-appropriate female, NAD, smells of t (more content not included)... Normal [facility] 12-29-2024 [facility] Telephone (FAMWS) SUSANNA MELTON ([id number]) 1970 F Date Time Provider Department 12/29/24 HUDSON VIDALES [facility] During your visit today, we recorded the following information about you: Barbara Vazquez LPN 12/29/2024 10:50 AM Signed Type of form: Short-term Disability Form received via fax When form is completed, Fax form to [phone] OR [phone] Form has been forwarded to Physician Desk: Dr. Bren JOY/ OLYA Suggs CNP, Bernadette, PA-C 12/30/2024 3:51 PM Signed I am happy to take a look, however, I have never seen this patient. YAYA Tran Stephanie 01/13/2025 3:45 PM Signed Spoke with patient and scheduled. ,me Allergies As of Date: 12/29/2024 Noted Allergy Reaction SEASONAL ALLERGIES 11/22/2018 14 - Other: See Comments Date Reviewed: 08/13/2024 Reviewed by: Gardenia Mcfadden MD - Fully Assessed Reason for Visit: Forms [913] Prescriptions as of 01/13/2025 - buPROPion SR (WELLBUTRIN SR) 150 mg 12 hr tablet 1 tablet two times a day. Take one twice daily - albuterol (PROVENTIL) 2.5 mg /3 mL (0.083 %) nebulizer solution Use 3 mL via nebulizer every 4 hours as needed for wheezing/shortness of breath. - carBAMazepine (TEGRETOL) 200 mg tablet Take 1 tablet by mouth two times a day. - citalopram (CELEXA) 20 mg tablet Take 1 tablet by mouth once daily. - simvastatin (ZOCOR) 40 mg tablet Take 1 tablet by mouth daily at bedtime. - amLODIPine (NORVASC) 10 mg tablet Take 1 tablet by mouth once daily. - budesonide-formoterol (SYMBICORT) 160-4.5 mcg/actuation inhaler Inhale 2 Puffs as instructed two times a day. - albuterol HFA (PROVENTIL HFA, VENTOLIN HFA) 90 mcg/actuation inhaler Inhale 2 Puffs as instructed every 4 hours as needed for wheezing/shortness of breath. - albuterol (PROVENTIL) 5 mg/mL nebu Inhale 0.5 mL as instructed one time only for 1 dose. 1 DOSE NOW - BACK OFFICE. PLACE 0.5 ML PER DROPPER AND 2.5 ML OF NORMAL SALINE INTO RESERVOIR. - EPINEPHrine (EPIPEN) 0.3 mg/0.3 mL auto-injector Inject at onset of allergic reaction in thigh, okay to repeat with 2nd injection if needed. - conjugated estrogens (PREMARIN) vaginal cream Use 0.5 g vaginally two times a week. - ibuprofen (MOTRIN) 600 mg tablet Take 1 tablet by mouth every 6 hours as needed for Pain. Problem List As Of Date 12/29/2024 Noted Resolved Seizure disorder (HCC) [G40.909] 04/08/2007 BENIGN HYPERTENSION [I10] 04/08/2007 ADJUSTMENT DISORDER WITH DEPRESSED MOOD [F43.21]04/08/2007 Mixed hyperlipidemia [E78.2] 08/21/2018 Current smoker [F17.200] 08/21/2018 KENDALL III (vulvar intraepithelial neoplasia III) *01/29/2019 Encounter Status:Closed by AGUSTINA BATES on 01/13/25 [facility] 10-27-2024 [facility] Telephone (FAMPWS) LINHSUSANNA Stevens ([id number]) 1970 F Date Time Provider Department 10/27/24 OKSANA THOMASON During your visit today, we recorded the following information about you: Allergies As of Date: 10/27/2024 Noted Allergy Reaction SEASONAL ALLERGIES 11/22/2018 14 - Other: See Comments Date Reviewed: 08/13/2024 Reviewed by: Gardenia Mcfadden MD - Fully Assessed Primary Visit Diagnosis:Seasonal allergic rhinitis, unspecified trigger [J30.2] Order(s):fluticasone (FLONASE ALLERGY RELIEF) 50 mcg/actuation nasal sprayUse 2 sprays in each nostril once daily.Disp: 1 eachRfl: 3 Prescriptions as of 10/27/2024 - albuterol (PROVENTIL) 2.5 mg /3 mL (0.083 %) nebulizer solution Use 3 mL via nebulizer every 4 hours as needed for wheezing/shortness of breath. - fluticasone (FLONASE ALLERGY RELIEF) 50 mcg/actuation nasal spray Use 2 sprays in each nostril once daily. - carBAMazepine (TEGRETOL) 200 mg tablet Take 1 tablet by mouth two times a day. - citalopram (CELEXA) 20 mg tablet Take 1 tablet by mouth once daily. - simvastatin (ZOCOR) 40 mg tablet Take 1 tablet by mouth daily at bedtime. - amLODIPine (NORVASC) 10 mg tablet Take 1 tablet by mouth once daily. - budesonide-formoterol (SYMBICORT) 160-4.5 mcg/actuation inhaler Inhale 2 Puffs as instructed two times a day. - albuterol HFA (PROVENTIL HFA, VENTOLIN HFA) 90 mcg/actuation inhaler Inhale 2 Puffs as instructed every 4 hours as needed for wheezing/shortness of breath. - albuterol (PROVENTIL) 5 mg/mL nebu Inhale 0.5 mL as instructed one time only for 1 dose. 1 DOSE NOW - BACK OFFICE. PLACE 0.5 ML PER DROPPER AND 2.5 ML OF NORMAL SALINE INTO RESERVOIR. - EPINEPHrine (EPIPEN) 0.3 mg/0.3 mL auto-injector Inject at onset of allergic reaction in thigh, okay to repeat with 2nd injection if needed. - conjugated estrogens (PREMARIN) vaginal cream Use 0.5 g vaginally two times a week. - ibuprofen (MOTRIN) 600 mg tablet Take 1 tablet by mouth every 6 hours as needed for Pain. Problem List As Of Date 10/27/2024 Noted Resolved Seizure disorder (HCC) [G40.909] 04/08/2007 BENIGN HYPERTENSION [I10] 04/08/2007 ADJUSTMENT DISORDER WITH DEPRESSED MOOD [F43.21]04/08/2007 Mixed hyperlipidemia [E78.2] 08/21/2018 Current smoker [F17.200] 08/21/2018 KENDALL III (vulvar intraepithelial neoplasia III) *01/29/2019 Prescriptions ordered this encounter Disp Refills Start End FLUTICASONE PROPIONATE 50 MCG/ACTUAT* 1 ea* 3 10/27/2024 11/26/2024 Route: EACH NOSTRIL Sig: Use 2 sprays in each nostril once daily. Encounter Status:Closed by OKSANA THOMASON on 10/27/24 [facility] 10-15-2024 [facility] Telephone (FAMWS) SUSANNA MELTON ([id number]) 1970 F Date Time Provider Department 10/15/24 HUDSON VIDALES [facility] During your visit today, we recorded the following information about you: Nata Lawton LPN 10/15/2024 11:04 AM Signed I checked with Nash Kulkarni on this. Here is his answer. I'st attempt. [facility] with phone number [phone] We do NOT do functional capacity evaluations here in [place]. The best thing to do is for the provider to order a functional capacity evaluation and have the patient call the call center [phone] and they can help the patient find the best location for them. The provider must select Functional Capacity Evaluation in the drop down when placing the PT order. The patient will not get scheduled correctly if the FCE is not ordered correctly. Annette Phillips Note Hudson Vidales DO 10/15/2024 12:13 PM Signed I didn't order this testing Please clarify Hudson Vidales DO Allergies As of Date: 10/15/2024 Noted Allergy Reaction SEASONAL ALLERGIES 11/22/2018 14 - Other: See Comments Date Reviewed: 08/13/2024 Reviewed by: Gardenia Mcfadden MD - Fully Assessed Prescriptions as of 10/15/2024 - albuterol (PROVENTIL) 2.5 mg /3 mL (0.083 %) nebulizer solution Use 3 mL via nebulizer every 4 hours as needed for wheezing/shortness of breath. - carBAMazepine (TEGRETOL) 200 mg tablet Take 1 tablet by mouth two times a day. - citalopram (CELEXA) 20 mg tablet Take 1 tablet by mouth once daily. - simvastatin (ZOCOR) 40 mg tablet Take 1 tablet by mouth daily at bedtime. - amLODIPine (NORVASC) 10 mg tablet Take 1 tablet by mouth once daily. - budesonide-formoterol (SYMBICORT) 160-4.5 mcg/actuation inhaler Inhale 2 Puffs as instructed two times a day. - albuterol HFA (PROVENTIL HFA, VENTOLIN HFA) 90 mcg/actuation inhaler Inhale 2 Puffs as instructed every 4 hours as needed for wheezing/shortness of breath. - albuterol (PROVENTIL) 5 mg/mL nebu Inhale 0.5 mL as instructed one time only for 1 dose. 1 DOSE NOW - BACK OFFICE. PLACE 0.5 ML PER DROPPER AND 2.5 ML OF NORMAL SALINE INTO RESERVOIR. - fluticasone (FLONASE) 50 mcg/actuation nasal spray Use 2 Sprays in each nostril once daily. Rinse mouth after use. - EPINEPHrine (EPIPEN) 0.3 mg/0.3 mL auto-injector Inject at onset of allergic reaction in thigh, okay to repeat with 2nd injection if needed. - conjugated estrogens (PREMARIN) vaginal cream Use 0.5 g vaginally two times a week. - ibuprofen (MOTRIN) 600 mg tablet Take 1 tablet by mouth every 6 hours as needed for Pain. Problem List As Of Date 10/15/2024 Noted Resolved Seizure disorder (HCC) [G40.909] 04/08/2007 BENIGN HYPERTENSION [I10] 04/08/2007 ADJUSTMENT DISORDER WITH DEPRESSED MOOD [F43.21]04/08/2007 Mixed hyperlipidemia [E78.2] 08/21/2018 Current smoker [F17.200] 08/21/2018 KENDALL III (vulvar intraepithelial neoplasia III) *01/29/2019 Encounter Status:Closed by NATA LAWTON LPN on 10/15/24 [facility] 10-14-2024 [facility] Telephone ([facility]) SUSANNA MELTON ([id number]) 1970 F Date Time Provider Department 10/14/24 OKSANA THOMASON [facility] During your visit today, we recorded the following information about you: Oksana Thomason APRN.[facility] 10/14/2024 5:03 PM Signed I placed an order for the FCE to OT/PT, hopefully it is in how they wanted. Please contact the patient to give her the following information that was provided. We do NOT do functional capacity evaluations here in [place]. The best thing to do is for the provider to order a functional capacity evaluation and have the patient call the call center [phone] and they can help the patient find the best location for them. Thank you Allergies As of Date: 10/14/2024 Noted Allergy Reaction SEASONAL ALLERGIES 11/22/2018 14 - Other: See Comments Date Reviewed: 08/13/2024 Reviewed by: Gardenia Mcfadden MD - Fully Assessed Prescriptions as of 10/14/2024 - albuterol (PROVENTIL) 2.5 mg /3 mL (0.083 %) nebulizer solution Use 3 mL via nebulizer every 4 hours as needed for wheezing/shortness of breath. - carBAMazepine (TEGRETOL) 200 mg tablet Take 1 tablet by mouth two times a day. - citalopram (CELEXA) 20 mg tablet Take 1 tablet by mouth once daily. - simvastatin (ZOCOR) 40 mg tablet Take 1 tablet by mouth daily at bedtime. - amLODIPine (NORVASC) 10 mg tablet Take 1 tablet by mouth once daily. - budesonide-formoterol (SYMBICORT) 160-4.5 mcg/actuation inhaler Inhale 2 Puffs as instructed two times a day. - albuterol HFA (PROVENTIL HFA, VENTOLIN HFA) 90 mcg/actuation inhaler Inhale 2 Puffs as instructed every 4 hours as needed for wheezing/shortness of breath. - albuterol (PROVENTIL) 5 mg/mL nebu Inhale 0.5 mL as instructed one time only for 1 dose. 1 DOSE NOW - BACK OFFICE. PLACE 0.5 ML PER DROPPER AND 2.5 ML OF NORMAL SALINE INTO RESERVOIR. - fluticasone (FLONASE) 50 mcg/actuation nasal spray Use 2 Sprays in each nostril once daily. Rinse mouth after use. - EPINEPHrine (EPIPEN) 0.3 mg/0.3 mL auto-injector Inject at onset of allergic reaction in thigh, okay to repeat with 2nd injection if needed. - conjugated estrogens (PREMARIN) vaginal cream Use 0.5 g vaginally two times a week. - ibuprofen (MOTRIN) 600 mg tablet Take 1 tablet by mouth every 6 hours as needed for Pain. Problem List As Of Date 10/14/2024 Noted Resolved Seizure disorder (HCC) [G40.909] 04/08/2007 BENIGN HYPERTENSION [I10] 04/08/2007 ADJUSTMENT DISORDER WITH DEPRESSED MOOD [F43.21]04/08/2007 Mixed hyperlipidemia [E78.2] 08/21/2018 Current smoker [F17.200] 08/21/2018 KENDALL III (vulvar intraepithelial neoplasia III) *01/29/2019 Encounter Status:Closed by OKSANA THOMASON on 10/14/24 [facility] 10-13-2024 [facility] Telephone (FAMPWS) SUSANNA MELTON ([id number]) 1970 F Date Time Provider Department 10/13/24 [place] [facility] During your visit today, we recorded the following information about you: Floyd Beach APRN.KENJI 10/13/2024 7:21 PM Signed I have received disability paperwork. However, for this to be completed she needs to have functional capacity testing completed. Please assist her to schedule this. The paperwork for this is in the inbox in my office-however I will be out of the office for the next 2-3 months so this may need evaluated and possibly completed by someone else. Floyd Beach APRN.Debbie Carvalho MA 10/14/2024 9:38 AM Signed Please schedule physical performance test. MELISSA Tesfaye Ida 10/14/2024 1:58 PM Signed I checked with Nash Kulkarni on this. Here is his answer. I'st attempt. [facility] with phone number [phone] We do NOT do functional capacity evaluations here in [place]. The best thing to do is for the provider to order a functional capacity evaluation and have the patient call the call center [phone] and they can help the patient find the best location for them. The provider must select Functional Capacity Evaluation in the drop down when placing the PT order. The patient will not get scheduled correctly if the FCE is not ordered correctly. Annette Phillips Allergies As of Date: 10/13/2024 Noted Allergy Reaction SEASONAL ALLERGIES 11/22/2018 14 - Other: See Comments Date Reviewed: 08/13/2024 Reviewed by: Gardenia Mcfadden MD - Fully Assessed Reason for Visit: disablity paperwork [Other] Primary Visit Diagnosis:Pulmonary emphysema, unspecified emphysema type (HCC) [J43.9] Other Visit Diagnoses:Hypertension , essential [I10] Seizure disorder ([facility]) [G40.909] Adjustment disorder with depressed mood [F43.21] Order(s):PHYSICAL PERFORMANCE TEST [74957AML] Order #: [id number] PHYSICAL PERFORMANCE TEST [[id number]] Order #: [id number] Prescriptions as of 10/15/2024 - albuterol (PROVENTIL) 2.5 mg /3 mL (0.083 %) nebulizer solution Use 3 mL via nebulizer every 4 hours as needed for wheezing/shortness of breath. - carBAMazepine (TEGRETOL) 200 mg tablet Take 1 tablet by mouth two times a day. - citalopram (CELEXA) 20 mg tablet Take 1 tablet by mouth once daily. - simvastatin (ZOCOR) 40 mg tablet Take 1 tablet by mouth daily at bedtime. - amLODIPine (NORVASC) 10 mg tablet Take 1 tablet by mouth once daily. - budesonide-formoterol (SYMBICORT) 160-4.5 mcg/actuation inhaler Inhale 2 Puffs as instructed two times a day. - albuterol HFA (PROVENTIL HFA, VENTOLIN HFA) 90 mcg/actuation inhaler Inhale 2 Puffs as instructed every 4 hours as needed for wheezing/shortness of breath. - albuterol (PROVENTIL) 5 mg/mL nebu Inhale 0.5 mL as instructed one time only for 1 dose. 1 DOSE NOW - BACK OFFICE. PLACE 0.5 ML PER DROPPER AND 2.5 ML OF NORMAL SALINE INTO RESERVOIR. - fluticasone (FLONASE) 50 mcg/actuation nasal spray Use 2 Sprays in each nostril once daily. Rinse mouth after use. - EPINEPHrine (EPIPEN) 0.3 mg/0.3 mL auto-injector Inject at onset of allergic reaction in thigh, okay to repeat with 2nd injection if needed. - conjugated estrogens (PREMARIN) vaginal cream Use 0.5 g vaginally two times a week. - ibuprofen (MOTRIN) 600 mg tablet Take 1 tablet by mouth every 6 hours as needed for Pain. Problem List As Of Date 10/13/2024 Noted Resolved Seizure disorder ([facility]) [G40.909] 04/08/2007 BENIGN HYPERTENSION [I10] 04/08/2007 ADJUSTMENT DISORDER WITH DEPRESSED MOOD [F43.21]04/08/2007 Mixed hyperlipidemia [E78.2] 08/21/2018 Current smoker [F17.200] 08/21/2018 KENDALL III (vulvar intraepithelial neoplasia III) *01/29/2019 Encounter Status:Closed by OKSANA THOMASON on 10/14/24 Normal [facility] A1AT SerPl-mCncon 08-13-2024 Alpha 1 antitrypsin [Mass/Vol] 189 mg/dL Normal 90-200 [facility] Comment on above: Order Comment: Speci men Type: BLOOD SPECIMENOrdering Facility: [facility] Address: [address] [place] [address] Performed By: #### 1 825-9 ####[facility] LABCLIA [id number] [place] [address] [place] [facility] ALPHA 1 ANTITRYP PHEN/GENOTY PEon 08-13-2024 HA1IN Normal [facility] Comment on above: Order Comment: Speci men Type: BLOOD SPECIMENOrdering Facility: [facility] Address: [address] [place] [address] Result Comment: Alph a 1 Antitrypsin Phenotype and Genotype Laboratory Accession Number: [id number] Result: No Variant Detected in SERPINA1 (PI*MM) Interpretation: DNA testing indicates that this patient does not have the S, Z, F, or I alleles of SERPINA1, the alpha-1 antitrypsin gene. Guidance: Genetic consultation and counseling of at risk family members regarding this laboratory testing may be considered as clinically appropriate. Patients with no variants of SERPINA1 typically have serum alpha-1 antitrypsin levels between 102-254 mg/dL. If this patient has a serum alpha-1 antitrypsin level that is not consistent with this genotype and alpha-1 antitrypsin deficiency caused by a rare variant is clinically suspected, consider performing SERPINA1 gene sequencing. Methodology: Isolated genomic DNA from the patient's blood specimen is evaluated for four variants in the alpha-1 antitrypsin gene SERPINA1 (RefSeq [id number]; GRCh38/hg38) by multiplex polymerase chain reaction (PCR) followed by melting curve analysis. These included the two most common pathogenic variants: S (c.863A>T, p.Civ254Vxd, g.[id number]), Z (c.1096G>A, p.Jcf077Mmo, g.[id number]), and the rarer variants: F (c.739C>T, p.Utf710Nwv, g.31713905), I (c.187C>T, p.Hcp40Ckr, g.81709217). Limitations: This Laboratory Developed Test (LDT) is designed to detect the S, Z, F and I alleles. The S and Z alleles comprise 95% of non-wild type genotypes. Uncommon variants or Single Nucleotide Polymorphisms may affect binding of LightMix or LightSNiP probes and may result in a false negative, false positive, or indeterminate result. Absence of the S, Z, F, and I alleles is interpreted as PI*MM genotype. However, there are over 100 known rare variants of SERPINA1 that are not detected by this LDT. Therefore, correlation of the genotype with the patient's serum alpha-1 antitrypsin level and clinical manifestations is strongly recommended. Frequency of S, Z, F and I Alleles in the general population: S: Heterozygous 2%; Homozygous 0.04% Z: Heterozygous 1%; Homozygous 0.01% F: Heterozygous 0.3%; Homozygous 0.001% I: Heterozygous 0.1%; Homozygous unknown Allele frequency information was gathered from the [employer] ([employer]) and includes data from , , , and populations (supporting data in references). Disclaimer: This test was developed and its performance characteristics determined by [facility]'s Pathology and Laboratory Medicine Department. It has not been cleared or approved by the FDA. [facility]'s Pathology and Laboratory Medicine Department is regulated under CLIA as certified to perform high-complexity testing. This test is used for clinical purposes. It should not be regarded as investigational or for research. Testing and interpretation performed at [facility], [address] [place] [id number]. CLIA Number: [id number] References: 1) Jazlyn RA, Carrington G, Roman ML, Jeffrey M, Zander CE, K, Job DK, Earl SL, Yevgeniy SETH, Iveth YA, Lydia C, Cheo J. The Diagnosis and Management of Alpha-1 Antritrypsin Deficiency in the Adult. Chronic Obstr Pulm Dis. 2016 Nov 05;3:668-682. 2) Lakshmi JA, Luz Maria ON, Kamron ER, Mary DG. a1-Antitrypsin phenotypes and associated serum protein concentrations in a large clinical population. Chest.2013 Aug;143(4):1000-8. 3) Darren A, Peg NA, Floyd CR, Michael FJ, Herbie SJ, Neville AF. Molecular characterisation of three tjqkh-9-pfucgwekysx deficiency variants: proteinase inhibitor (Pi) nullcardiff (Psf795----Uhx); PiMmalton (Hkl53----dzpiqtbd) and PiI (Rzp08----Yvs). Hum Tracey. 1988;84(1):55-8. 4) Mauri EK and Jazlyn ALICIA. Clinical practice. Alpha1-antitrypsin deficiency. N Engl J Med. 2008Nov 24;360(37)0980-39. 5) Dylan NJ, Fern F, Alejo ALICIA. The significance of the F variant of dbbid-3-vllshyxjgzu and unique case report of a PiFF homozygote. BMC Pulm Med. 2013Jan 06;14:132. 6) Iveth YA, Kinsey FL, and Brad Davidson. Alpha-1 Antitrypsin Deficiency. 2005Mar 28 [Updated 2017 June 20]. In: Sandie RA, Wisam MP, Jus TO, et al., editors. GeneReviews [Internet]. [place]): [employer] [facility], [place]; 0299-7646. Available from: http://www.ncbi.nlm.nih.gov/books/FBL9052/ As reviewed by Eli Christian, PhD, [facility] Performed By: #### A 1ATPG ####[facility] [id number] [address] [facility] CNOVon 08-13-2024 CNOV Office Visit (PULMWS ) SUSANNA MELTON ([id number]) 1970 F Date Time Provider Department 08/13/24 8:00 AM [facility] PULAshlyWS During your visit today, we recorded the following information about you: Pulse Respiration Blood pressure Weight 85/minute 18/minute 148/96 72.6 kg Height 1.581 m Gardenia Mcfadden MD 08/13/2024 9:19 AM Addendum . Respiratory [place] Note Patient name: Susanna Melton PCP: Hudson Vidales DO Referring Physician: Shobha Redd CNP Consultation requested by Shobha Redd for an opinion regarding cough, bronchitis. My final recommendations will be communicated back to the requesting physician by way of shared Medical record or letter to requesting physician via US mail. CC: Cough HPI: Susanna Melton 54 year old female current 40 pack year smoker with PMH significant for epilepsy, HTN, hyponatremia, depression being seen for cough and recurrent bronchitis. She has no history of asthma although she does have a history of allergies. Allergy seasons are summer and fall. She has been tested in the past and actually received allergy shots for 5 years ago but they were discontinued due to lack of efficacy. She states that she usually has sinusitis with bronchitis every winter. When she is ill she will have significant chest congestion, wheezing, chest tightness and shortness of breath. She usually receives antibiotics and steroids. She has albuterol inhaler to use as needed but states she only uses it when she is ill with her bronchitis. After this last bout of sinusitis with bronchitis, she has had some persistent dry cough, shortness of breath but no wheezing. She has been short of breath when climbing stairs or hurrying but had noticed some baseline shortness of breath approximately 6 months ago. Albuterol does help. No nocturnal awakenings. DATA: PFT 07/2024: Review pulmonary function test show moderate obstruction with some improvement in her small airways postbronchodilator, lung volumes show air trapping. Labs: Normal CBC Imaging / Diagnostic Studies: DATE OF EXAM: Aug 04 2024 11:35AM [facility] 0541 - CT CHEST WO IVCON / PROCEDURE REASON: Chronic cough Comparison: Chest radiograph dated 07/15/2024 RESULT: Limitations: None. Lines, tubes, and devices: None. Lung parenchyma and airways: Atelectasis is seen within the lingula and right middle lobe. There is emphysema with mild, diffuse bronchiectasis. There is a partially calcified nodule seen within the left apex, measuring approximately 5 mm (series 5, image #14). Other subcentimeter nodules are also seen. For example, there is an approximately 5 mm subpleural nodule seen within the left lower lobe (series 2, image #127). There is an approximately 5 mm subpleural nodule seen within the right lower lobe (series 5, image 125). There is an approximately 3 mm nodule within the posterior segment right upper lobe (series 5, image #34). Calcified granulomas are also seen within the lungs. There is no pneumothorax or endobronchial lesion. Pleural space: There is no pleural effusion. Lower neck, lymph nodes, and mediastinum: There are no pathologically enlarged axillary, mediastinal, or hilar lymph nodes. Heart, pericardium, and thoracic vessels: Atherosclerotic calcifications are present within the thoracic aorta and coronary arteries. The heart is normal in size. There is no significant pericardial effusion Bones and soft tissues: There is no destructive bony lesion. Mild scoliosis and multilevel degenerative change within the thoracic spine. Vacuum disc phenomena is seen at multiple levels within the thoracic spine. Upper abdomen: Nonspecific wall thickening of the stomach likely relates to underdistention. Nonspecific thickening and nodularity of the adrenal glands, bilaterally, with associated bilateral adrenal adenomas. Incidentally noted are bilateral renal cysts. IMPRESSION: No acute pulmonary process is identified. Emphysema, with mild, diffuse bronchiectasis. Subcentimeter pulmonary nodules, measuring up to 5 mm in size. Sequela of remote granulomatous disease. No agusto lymphadenopathy is seen within the chest. Chest CT shows mild emphysema changes in multiple noncalcified 5 mm pulmonary nodules PAST MEDICAL HISTORY Diagnosis Date Depression HLD (hyperlipidemia) Hyponatremia Seasonal allergies Unspecified epilepsy without mention of intractable epilepsy (HCC) Epilepsy Unspecified essential hypertension Essential hypertension ALLERGIES Allergen Reactions Seasonal Allergies Other: See Comments budesonide-formoterol (SYMBICORT) 160-4.5 mcg/actuation inhaler Inhale 2 Puffs as instructed two times a day. albuterol HFA (PROVENTIL HFA, VENTOLIN HFA) 90 mcg/actuation inhaler Inhale 2 Puffs as instructed every 4 hours as nee (more content not included)... Normal [facility] Eosinophils Auto (Bld) [#/Vo l]on 08-13-2024 Eosinophils (Bld) [#/Vol] 0.08 10*3/uL [facility] Interpretation and review of laboratory results Normal [facility] Eosinophils (Bld) [#/Vol] 0.08 10*3/uL Normal <0.46 [facility] Comment on above: Order Comment: Speci men Type: BLOOD SPECIMENOrdering Facility: [facility] Address: [address] [place] [address] Performed By: #### 7 11-2 ####[facility] [id number] [address] CNCOon 08-05-2024 CNCO Letter Text Normal [facility] CT CHEST WO IVCONon 08-05-19 CT CHEST WO IVCON * * *Final Report* * * DATE OF EXAM: Aug 04 2024 11:35AM [facility] 0541 - CT CHEST WO IVCON / PROCEDURE REASON: Chronic cough * * * * Physician Interpretation * * * * EXAMINATION: CHEST CT WITHOUT CONTRAST CLINICAL HISTORY: Chronic cough. Technique: Spiral CT acquisition of the chest from the thoracic inlet to the upper abdomen without contrast. MQ: [id number] CT Radiation dose: Integrated Dose-length product (DLP) for this visit = 206 mGy*cm CT Dose Reduction Employed: Automated exposure control(AEC) and iterative recon Comparison: Chest radiograph dated 07/15/2024 RESULT: Limitations: None. Lines, tubes, and devices: None. Lung parenchyma and airways: Atelectasis is seen within the lingula and right middle lobe. There is emphysema with mild, diffuse bronchiectasis. There is a partially calcified nodule seen within the left apex, measuring approximately 5 mm (series 5, image #14). Other subcentimeter nodules are also seen. For example, there is an approximately 5 mm subpleural nodule seen within the left lower lobe (series 2, image #127). There is an approximately 5 mm subpleural nodule seen within the right lower lobe (series 5, image 125). There is an approximately 3 mm nodule within the posterior segment right upper lobe (series 5, image #34). Calcified granulomas are also seen within the lungs. There is no pneumothorax or endobronchial lesion. Pleural space: There is no pleural effusion. Lower neck, lymph nodes, and mediastinum: There are no pathologically enlarged axillary, mediastinal, or hilar lymph nodes. Heart, pericardium, and thoracic vessels: Atherosclerotic calcifications are present within the thoracic aorta and coronary arteries. The heart is normal in size. There is no significant pericardial effusion Bones and soft tissues: There is no destructive bony lesion. Mild scoliosis and multilevel degenerative change within the thoracic spine. Vacuum disc phenomena is seen at multiple levels within the thoracic spine. Upper abdomen: Nonspecific wall thickening of the stomach likely relates to underdistention. Nonspecific thickening and nodularity of the adrenal glands, bilaterally, with associated bilateral adrenal adenomas. Incidentally noted are bilateral renal cysts. IMPRESSION: No acute pulmonary process is identified. Emphysema, with mild, diffuse bronchiectasis. Subcentimeter pulmonary nodules, measuring up to 5 mm in size. Sequela of remote granulomatous disease. No agusto lymphadenopathy is seen within the chest. Incidental Finding: Follow-up Acuity: Incidental Finding: Solid: <6 mm (solitary or multiple) Routing Code: N/A Recommendation: No imaging follow-up is recommended Time Frame: N/A Comments: If there are risk factors for lung malignancy, a follow-up chest CT exam could be obtained in 12 months --END OF FINDING-- Secretary: ARIELLE Transcribe Date/Time: Aug 04 2024 12:53P Dictated by : AISHA HARRIS MD This examination was interpreted and the report reviewed and electronically signed by: AISHA HARRIS MD on Aug 04 2024 8:55PM EST [id number] ACTIONABLE Invalid Interpretation Code [facility] CT Chest WO contrastOrdered By: Ccf Provider on 08-04-2024 Interpretation and review of laboratory results Abnormal [facility] Radiology Result ACTIONABLE Abnormal [facility] Comment on above: This report contains an incidental or actionable finding. This finding may be a new finding separate from the reason your provider ordered the imaging test or it may be an already known finding that needs additional or continued follow-up. Because of this incidental or actionable finding, you may need another test (imaging or a different type of test). Please contact your provider for the next steps. [facility] CT Chest WO contraston 08-04 IMPRESSION: No acute pulmonary process is identified. Emphysema, with mild, diffuse bronchiectasis. Subcentimeter pulmonary nodules, measuring up to 5 mm in size. Sequela of remote granulomatous disease. No agusto lymphadenopathy is seen within the chest. Incidental Finding: Follow-up Acuity: Incidental Finding: Solid: <6 mm (solitary or multiple) Routing Code: N/A Recommendation: No imaging follow-up is recommended Time Frame: N/A Comments: If there are risk factors for lung malignancy, a follow-up chest CT exam could be obtained in 12 months --END OF FINDING-- Secretary: ARIELLE Transcribe Date/Time: Aug 04 2024 12:53P Dictated by : AISHA HARRIS MD This examination was interpreted and the report reviewed and electronically signed by: AISHA HARRIS MD on Aug 04 2024 8:55PM [facility] DIVISION OF RADIOLOGY * * *Final Report* * * DATE OF EXAM: Aug 04 2024 11:35AM [facility] 0541 - CT CHEST WO IVCON / PROCEDURE REASON: Chronic cough * * * * Physician Interpretation * * * * EXAMINATION: CHEST CT WITHOUT CONTRAST CLINICAL HISTORY: Chronic cough. Technique: Spiral CT acquisition of the chest from the thoracic inlet to the upper abdomen without contrast. MQ: CTCWO_6 CT Radiation dose: Integrated Dose-length product (DLP) for this visit = 206 mGy*cm CT Dose Reduction Employed: Automated exposure control(AEC) and iterative recon Comparison: Chest radiograph dated 07/15/2024 RESULT: Limitations: None. Lines, tubes, and devices: None. Lung parenchyma and airways: Atelectasis is seen within the lingula and right middle lobe. There is emphysema with mild, diffuse bronchiectasis. There is a partially calcified nodule seen within the left apex, measuring approximately 5 mm (series 5, image #14). Other subcentimeter nodules are also seen. For example, there is an approximately 5 mm subpleural nodule seen within the left lower lobe (series 2, image #127). There is an approximately 5 mm subpleural nodule seen within the right lower lobe (series 5, image 125). There is an approximately 3 mm nodule within the posterior segment right upper lobe (series 5, image #34). Calcified granulomas are also seen within the lungs. There is no pneumothorax or endobronchial lesion. Pleural space: There is no pleural effusion. Lower neck, lymph nodes, and mediastinum: There are no pathologically enlarged axillary, mediastinal, or hilar lymph nodes. Heart, pericardium, and thoracic vessels: Atherosclerotic calcifications are present within the thoracic aorta and coronary arteries. The heart is normal in size. There is no significant pericardial effusion Bones and soft tissues: There is no destructive bony lesion. Mild scoliosis and multilevel degenerative change within the thoracic spine. Vacuum disc phenomena is seen at multiple levels within the thoracic spine. Upper abdomen: Nonspecific wall thickening of the stomach likely relates to underdistention. Nonspecific thickening and nodularity of the adrenal glands, bilaterally, with associated bilateral adrenal adenomas. Incidentally noted are bilateral renal cysts. DIVISION OF RADIOLOGY Provider, [facility] - 08/04/2024 * * *Final Report* * * DATE OF EXAM: Aug 04 2024 11:35AM [facility] 0541 - CT CHEST WO IVCON / PROCEDURE REASON: Chronic cough * * * * Physician Interpretation * * * * EXAMINATION: CHEST CT WITHOUT CONTRAST CLINICAL HISTORY: Chronic cough. Technique: Spiral CT acquisition of the chest from the thoracic inlet to the upper abdomen without contrast. MQ: CTCWO_6 CT Radiation dose: Integrated Dose-length product (DLP) for this visit = 206 mGy*cm CT Dose Reduction Employed: Automated exposure control(AEC) and iterative recon Comparison: Chest radiograph dated 07/15/2024 RESULT: Limitations: None. Lines, tubes, and devices: None. Lung parenchyma and airways: Atelectasis is seen within the lingula and right middle lobe. There is emphysema with mild, diffuse bronchiectasis. There is a partially calcified nodule seen within the left apex, measuring approximately 5 mm (series 5, image #14). Other subcentimeter nodules are also seen. For example, there is an approximately 5 mm subpleural nodule seen within the left lower lobe (series 2, image #127). There is an approximately 5 mm subpleural nodule seen within the right lower lobe (series 5, image 125). There is an approximately 3 mm nodule within the posterior segment right upper lobe (series 5, image #34). Calcified granulomas are also seen within the lungs. There is no pneumothorax or endobronchial lesion. Pleural space: There is no pleural effusion. Lower neck, lymph nodes, and mediastinum: There are no pathologically enlarged axillary, mediastinal, or hilar lymph nodes. Heart, pericardium, and thoracic vessels: Atherosclerotic calcifications are present within the thoracic aorta and coronary arteries. The heart is normal in size. There is no significant pericardial effusion Bones and soft tissues: There is no destructive bony lesion. Mild scoliosis and multilevel degenerative change within the thoracic spine. Vacuum disc phenomena is seen at multiple levels within the thoracic spine. Upper abdomen: Nonspecific wall thickening of the stomach likely relates to underdistention. Nonspecific thickening and nodularity of the adrenal glands, bilaterally, with associated bilateral adrenal adenomas. Incidentally noted are bilateral renal cysts. IMPRESSION IMPRESSION: No acute pulmonary process is identified. Emphysema, with mild, diffuse bronchiectasis. Subcentimeter pulmonary nodules, measuring up to 5 mm in size. Sequela of remote granulomatous disease. No agusto lymphadenopathy is seen within the chest. Incidental Finding: Follow-up Acuity: Incidental Finding: Solid: <6 mm (solitary or multiple) Routing Code: N/A Recommendation: No imaging follow-up is recommended Time Frame: N/A Comments: If there are risk factors for lung malignancy, a follow-up chest CT exam could be obtained in 12 months --END OF FINDING-- Secretary: ARIELLE Transcribe Date/Time: Aug 04 2024 12:53P Dictated by : AISHA HARRIS MD This examination was interpreted and the report reviewed and electronically signed by: AISHA HARRIS MD on Aug 04 2024 8:55PM EST [facility] Radiology Study observation (narrative) [facility] LUNG VOLUMESon 08-04-2024 ERV BOX (L) 1.83 L [facility] ERV PREDICTED (L) 0.95 L/S [facility] FEF25% POST (L/S) 1.8 L[facility] FEF25% PRE (L/S) 1.44 [facility] FTR09-40% LLN (L/S) 1.25 L/S [facility] VFO30-42% POST (L/S) 0.47 L/S [facility] OMZ41-45% PRE (L/S) 0.38 L/S [facility] YKY44-82% PREDICTED (L/S) 2.35 L/S [facility] FEF75% LLN (L/S) 0.29 L/S [facility] FEF75% POST (L/S) 0.19 L/S [facility] FEF75% PRE (L/S0 0.14 L/S [facility] FEF75% PREDICTED (L/S) 0.7 L/S [facility] FEF75% ULN (L/S) 1.57 L/S [facility] FET POST (S) 14.35 S [facility] FET PRE (S) 14.03 S [facility] FEV1 LLN (L) 1.69 L [facility] FEV1 PRE (L) 1.38 L [facility] FEV1 PREDICTED (L) 2.32 L [facility] FEV1 ULN (L) 2.92 L [facility] FEV1/FVC LLN (%) 69 % [facility] FEV1/FVC POST (%) 49 % [facility] FEV1/FVC PRE (%) 48 % [facility] FEV1/FVC PREDICTED (%) 81 % [facility] FEV1_POST (L) 1.43 L [facility] FRC Box (L) 4.46 L [facility] FVC LLN (L) 2.1 L [facility] FVC POST (L) 2.93 L [facility] FVC PRE (L) 2.85 L [facility] FVC PREDICTED (L) 2.86 L [facility] FVC ULN (L) 3.64 L [facility] IC BOX (L) 1.09 L [facility] IC PREDICTED (L) 1.91 L/S [facility] PEF LLN (L/S) 4.61 L/S [facility] PEF POST (L/S) 3.66 L/S [facility] PEF PRE (L/S) 3.81 L/S [facility] PEF ULN (L/S) 7.84 L/S [facility] RV Box (L) 2.94 L [facility] RV Box PREDICTED (L) 1.82 L [facility] RV/TLC Box (%) 52 % [facility] RV/TLC Box PREDICTED (%) 38 % [facility] SVC LLN (L) 2.1 L/S [facility] SVC PREDICTED (L) 2.86 L/S [facility] SVC ULN (L) 3.64 L/S [facility] TLC Box (L) 5.71 L [facility] TLC Box PREDICTED (L) 4.79 L [facility] VC (L) BOX 3.02 L [facility] No Panel Informationon 08-04 [facility] [address] [place] [address] Test Date: 2024-08-04 Pat Name: SUSANNA AMAYASHERIN Department: Room: Gender: Female Film Or Videotape Editor: : 1970 Requested By: Order Number: [id number] Reading MD: Gardenia Mcfadden MD Interpretive Statements Medications and Allergies were reviewed for possible drug interactions per policy. No contraindications or sensitivities were noted. Meds taken: No inhaled respiratory medications taken before testing. 4 puffs Albuterol (360 mcg) delivered by MDI via holding chamber. HR pre = 116/min, HR post = 118 /min. Current ATS/ERS acceptability and repeatability standards for spirometry met. Start of test and EOFE criteria met. Lung Volumes repeatable x3. IMPRESSION: Spirometry indicates moderate obstruction. Negative bronchodilator response. Elevated lung volumes (RV and/or RV/TLC) indicate air trapping. Electronically Signed On 08-04-2024 12:06:12 EST by Gardenia Mcfadden MD Site: WO ID: [id number] Name: SUSANNA MELTON Visit Date: 08/04/2024 Doctor: Film Or Videotape Editor: Amber Dailey Age: 54 Date of : 1970 Gender: Female Race: White Height: 62.24 in Weight: 160.00 lbs BSA: 1.744 Diagnosis: Chronic cough_ Dyspnea: Cough: Wheeze: Tobacco Use: None Medications: Comments: Medications and Allergies were reviewed for possible drug interactions per policy. No contraindications or sensitivities were noted. Meds taken: No inhaled respiratory medications taken before testing. 4 puffs Albuterol (360 mcg) delivered by MDI via holding chamber. HR pre = 116/min, HR post = 118 /min. Current ATS/ERS acceptability and repeatability standards for spirometry met. Start of test and EOFE criteria met. Lung Volumes repeatable x3. Review Status: Not Reviewed PRE-BRONCH POST-BRONCH Pred LLN ULN Actual %Pred Actual %Chng SPIROMETRY FVC (L) 2.86 2.10 3.64 2.85 99 2.93 2 FEV1 (L) 2.32 1.69 2.92 1.38 59 1.43 2 FEV1/FVC 0.81 0.69 0.90 0.48 59 0.49 0 FEF25 (L/sec) 1.44 1.80 24 FEF50 (L/sec) 3.29 1.68 4.90 0.55 16 0.66 21 FEF75 (L/sec) 0.70 0.29 1.57 0.14 19 0.19 39 UWQ68-79 (L/sec) 2.35 1.25 3.80 0.38 15 0.47 26 FEF Max (L/sec) 6.23 4.61 7.84 3.81 61 3.66 -3 FIVC (L) 2.58 2.62 1 FIF50 (L/sec) 3.60 3.47 -3 FIF Max (L/sec) 3.63 3.50 -3 Time (sec) 14.03 14.35 2 HUEY (L) 0.05 0.06 22 Time To FEF Max (sec) 0.06 0.09 46 LUNG VOLUMES SVC (L) 2.86 2.10 3.64 3.02 105 IC (L) 1.91 1.09 57 ERV (L) 0.95 1.83 191 FRC (Pleth) (L) 2.68 1.82 3.54 4.46 166 RV (Pleth) (L) 1.82 1.19 2.45 2.94 161 TLC (Pleth) (L) 4.79 3.91 5.67 5.71 119 RV/TLC (Pleth) (%) 38 29 47 52 136 PULMONARY FUNCTION LAB [facility] XR CHEST 2V FRONTAL/LATon XR CHEST 2V FRONTAL/LAT * * *Final Report* * * DATE OF EXAM: Jul 15 2024 12:19PM WOX [id number] - XR CHEST 2V FRONTAL/LAT / PROCEDURE REASON: multiple diagnoses * * * * Physician Interpretation * * * * EXAMINATION: CHEST RADIOGRAPH (2 VIEW FRONTAL and LATERAL) CLINICAL HISTORY: Sinobronchitis MQ: XC2_6 EXAM DATE/TIME: 07/15/2024 12:19 PM COMPARISON: 04/04/2023 RESULT: Lines, tubes, and devices: None. Lungs and pleura: No consolidation. No lung mass. No pleural effusion. No pneumothorax. Cardiomediastinal silhouette: Normal cardiomediastinal silhouette. Bones and soft tissues: Unremarkable. IMPRESSION: No acute radiographic abnormality. Secretary: [facility] Transcribe Date/Time: Jul 15 2024 4:27P Dictated by : GENEVA SEGURA MD This examination was interpreted and the report reviewed and electronically signed by: GENEVA SEGURA MD on Jul 15 2024 4:27PM EST [id number] Normal [facility] XR Chest PA and Lateralon IMPRESSION: No acute radiographic abnormality. Secretary: [facility] Transcribe Date/Time: Jul 15 2024 4:27P Dictated by : GENEVA SEGURA MD This examination was interpreted and the report reviewed and electronically signed by: GENEVA SEGURA MD on Jul 15 2024 4:27PM EST DIVISION OF RADIOLOGY * * *Final Report* * * DATE OF EXAM: Jul 15 2024 12:19PM WOX [id number] - XR CHEST 2V FRONTAL/LAT / PROCEDURE REASON: multiple diagnoses * * * * Physician Interpretation * * * * EXAMINATION: CHEST RADIOGRAPH (2 VIEW FRONTAL & LATERAL) CLINICAL HISTORY: Sinobronchitis MQ: XC2_6 EXAM DATE/TIME: 07/15/2024 12:19 PM COMPARISON: 04/04/2023 RESULT: Lines, tubes, and devices: None. Lungs and pleura: No consolidation. No lung mass. No pleural effusion. No pneumothorax. Cardiomediastinal silhouette: Normal cardiomediastinal silhouette. Bones and soft tissues: Unremarkable. DIVISION OF RADIOLOGY Provider, [facility] - 07/15/2024 * * *Final Report* * * DATE OF EXAM: Jul 15 2024 12:19PM WOX [id number] - XR CHEST 2V FRONTAL/LAT / PROCEDURE REASON: multiple diagnoses * * * * Physician Interpretation * * * * EXAMINATION: CHEST RADIOGRAPH (2 VIEW FRONTAL & LATERAL) CLINICAL HISTORY: Sinobronchitis MQ: XC2_6 EXAM DATE/TIME: 07/15/2024 12:19 PM COMPARISON: 04/04/2023 RESULT: Lines, tubes, and devices: None. Lungs and pleura: No consolidation. No lung mass. No pleural effusion. No pneumothorax. Cardiomediastinal silhouette: Normal cardiomediastinal silhouette. Bones and soft tissues: Unremarkable. IMPRESSION IMPRESSION: No acute radiographic abnormality. Secretary: ARIELLE Transcribe Date/Time: Jul 15 2024 4:27P Dictated by : GENEVA SEGURA MD This examination was interpreted and the report reviewed and electronically signed by: GENEVA SEGURA MD on Jul 15 2024 4:27PM [facility] Radiology Study observation (narrative) [facility] XR Chest PA and LateralOrder ed By: [facility] Provider on 07-15-2024 [facility] CNPNon 07-07-2024 LEIF Telephone (CANWS) SUSANNA MELTON ([id number]) 1970 F Date Time Provider Department 07/07/24 SHOBHA REDD During your visit today, we recorded the following information about you: Shobha Redd APRN.KENJI 07/07/2024 11:20 AM Signed Please call patient and let her know that she was negative for covid, flu, or RSV. Please see how she is feeling. Thank you, Shobha Redd APRN.Ada Johnson OCCA 07/07/2024 11:36 AM Signed TC no answer. Left VM to return call. MILDRED Elizalde Amanda, RN 07/08/2024 1:52 PM Signed Pt called and is notified of providers results and question. Pt voices understanding and states she feels a lot better. She states she has 2-3 pills left, and the breathing machine has helped a lot. Pt reports she is coughing and bringing up a lot of phlegm. LINA Marin Alyson Taylor, APRN.PROCESS CAMERA OPERATOR 07/08/2024 2:42 PM Signed Noted. Thank you, Shobha Redd APRN.KENJI Jazzy BraulioAra 07/13/2024 3:53 PM Signed Patient is calling to state she completed the antibiotic on Friday and still has a sore throat with lots of Phlegm please advise patient. Shobha Redd APRN.PROCESS CAMERA OPERATOR 07/14/2024 5:29 PM Signed She needs to get chest xray as ordered. Thank you, Shobha Redd APRN.Debbie Carvalho MA 07/14/2024 6:47 PM Signed Pt informed Debbie Liriano [place] Allergies As of Date: 07/07/2024 Noted Allergy Reaction SEASONAL ALLERGIES 11/22/2018 14 - Other: See Comments Date Reviewed: 07/01/2024 Reviewed by: Shobha Redd APRN.KENJI - Fully Assessed Reason for Visit: Results [95] Prescriptions as of 07/14/2024 - benzonatate (TESSALON PERLE) 100 mg capsule Take 1 capsule by mouth three times a day as needed. - albuterol (PROVENTIL) 5 mg/mL nebu Inhale 0.5 mL as instructed one time only for 1 dose. 1 DOSE NOW - BACK OFFICE. PLACE 0.5 ML PER DROPPER AND 2.5 ML OF NORMAL SALINE INTO RESERVOIR. - albuterol (PROVENTIL) 2.5 mg /3 mL (0.083 %) nebulizer solution Use 3 mL via nebulizer every 4 hours as needed for wheezing/shortness of breath. - albuterol HFA (PROVENTIL HFA, VENTOLIN HFA) 90 mcg/actuation inhaler Inhale 2 Puffs as instructed every 4 hours as needed for wheezing/shortness of breath. - fluticasone (FLONASE) 50 mcg/actuation nasal spray Use 2 Sprays in each nostril once daily. Rinse mouth after use. - amLODIPine (NORVASC) 10 mg tablet Take 1 tablet by mouth once daily. - carBAMazepine (TEGRETOL) 200 mg tablet Take 1 tablet by mouth two times a day. - citalopram (CELEXA) 20 mg tablet Take 1 tablet by mouth once daily. - simvastatin (ZOCOR) 40 mg tablet Take 1 tablet by mouth daily at bedtime. - EPINEPHrine (EPIPEN) 0.3 mg/0.3 mL auto-injector Inject at onset of allergic reaction in thigh, okay to repeat with 2nd injection if needed. - conjugated estrogens (PREMARIN) vaginal cream Use 0.5 g vaginally two times a week. - ibuprofen (MOTRIN) 600 mg tablet Take 1 tablet by mouth every 6 hours as needed for Pain. Problem List As Of Date 07/07/2024 Noted Resolved Seizure disorder (HCC) [G40.909] 04/08/2007 BENIGN HYPERTENSION [I10] 04/08/2007 ADJUSTMENT DISORDER WITH DEPRESSED MOOD [F43.21]04/08/2007 Mixed hyperlipidemia [E78.2] 08/21/2018 Current smoker [F17.200] 08/21/2018 KENDALL III (vulvar intraepithelial neoplasia III) *01/29/2019 Encounter Status:Closed by SHOBHA REDD on 07/08/24 [facility] CNOVon 07-01-2024 CNOV Office Visit (FAMPWS ) SUSANNA MELTON ([id number]) 1970 F Date Time Provider Department 07/01/24 9:00 AM SHOBHA REDD During your visit today, we recorded the following information about you: Pulse Respiration Blood pressure Weight 94/minute 14/minute 122/74 71.7 kg Shobha Redd APRN.PROCESS CAMERA OPERATOR 07/01/2024 10:36 AM Signed Chief Complaint Patient presents with: follow up urgent care cough and sinus: Not feeling any better wok up this am diarrhea HPI Susanna Melton is a 53 year old female who presents here today for Above Complaints.. Marilynn is an established patient of Dr. Flash DO. Concerns today... Express care follow-up- Was seen in [facility] on 06/24/24 with BENITA Pina for cough and diagnosed with sinobronchitis. Was given rx doxycycline 100mg 1 every day for 7 days, prednisone, and albuterol inhaler. Per note: ASSESSMENT/PLAN: 1. Sinobronchitis - ICD9: 473.9, 490, ICD10: J32.9, J40 - Will begin treatment with Doxycycline -Rx prednisone -Refill albuterol inhaler -Offered chest x-ray, patient declined. She had an x-ray back in April that was normal. She will follow-up with PCP if symptoms are persistent -Did also discuss with patient following up with PCP for possible PFTs/COPD discussion. Patient is a smoker-. She does get bronchitis quite often. - Supportive care with plenty of fluids, rest, and analgesia prn. Today... Patient reports dry and productive cough, SOB, wheezing, congestion, sore throat. Symptoms started on 06/21/24 and was seen in express care on 06/24, and symptoms have not improved. If anything, they are worsening and new symptoms arising. States she had a fever and left side earache that went away yesterday. Had diarrhea that started this morning. Has been taking rx prednisone and doxycycline as prescribed, states this has not improved her symptoms at all. Using albuterol inhaler and this improves symptoms some. Has tried vicks vapor rub which did not help. No known hx of COPD. Reports getting bad illness once per winter that is hard to recover from. Past medical history, appointments, medications, allergies reviewed. Previous Medical History PAST MEDICAL HISTORY Diagnosis Date Depression Hyponatremia Unspecified epilepsy without mention of intractable epilepsy (HCC) Epilepsy Unspecified essential hypertension Essential hypertension Previous Surgical History PAST SURGICAL HISTORY Procedure Laterality Date CARPAL TUNNEL Right PAST SURGICAL HISTORY OF Nasal ballooning with ENT Family History FAMILY HISTORY Problem Relation Age of Onset Hypertension Father Hypertension Mother Diabetes Mother Colon Cancer Maternal Aunt Cancer Maternal Uncle throat, smoker Patient Allergies ALLERGIES Allergen Reactions Seasonal Allergies Other: See Comments Current Medications Current Outpatient Medications on File Prior to Visit Medication Sig albuterol HFA (PROVENTIL HFA, VENTOLIN HFA) 90 mcg/actuation inhaler Inhale 2 Puffs as instructed every 4 hours as needed for wheezing/shortness of breath. doxycycline monohydrate 100 mg tablet Take 1 tablet by mouth two times a day for 7 days. fluticasone (FLONASE) 50 mcg/actuation nasal spray Use 2 Sprays in each nostril once daily. Rinse mouth after use. amLODIPine (NORVASC) 10 mg tablet Take 1 tablet by mouth once daily. carBAMazepine (TEGRETOL) 200 mg tablet Take 1 tablet by mouth two times a day. citalopram (CELEXA) 20 mg tablet Take 1 tablet by mouth once daily. simvastatin (ZOCOR) 40 mg tablet Take 1 tablet by mouth daily at bedtime. EPINEPHrine (EPIPEN) 0.3 mg/0.3 mL auto-injector Inject at onset of allergic reaction in thigh, okay to repeat with 2nd injection if needed. conjugated estrogens (PREMARIN) vaginal cream Use 0.5 g vaginally two times a week. ibuprofen (MOTRIN) 600 mg tablet Take 1 tablet by mouth every 6 hours as needed for Pain. No current facility-administered medications on file prior to visit. Social History Social History Tobacco Use Smoking status: Every Day Current packs/day: 1.50 Average packs/day: 1.5 packs/day for 40.5 years (60.7 ttl pk-yrs) Types: Cigarettes Start date: 01/02/1984 Smokeless tobacco: Never Tobacco comments: Is down to a pack a day over the past 3 months (since July 2022) Vaping Use Vaping status: Never Used Substance Use Topics Alcohol use: No Drug use: No REVIEW OF SYSTEMS: as above Reviewed relevant PMHx, PSHx, Social Hx, current medications and allergies. Review of Symptoms REVIEW OF SYSTEMS See HPI. EXAM: BP 120/70 (BP Site: Left Arm, BP Position: Sitting, BP Cuff Size: Regular Adult) Pulse 101 Resp 14 Wt 71.7 kg (158 lb) LMP 08/05/2007 SpO2 97% BMI 27.12 kg/m? Ears: External ears normal, canals clear. Oropharynx: Lips, mucosa, and tongue normal, teet (more content not included)... Normal [facility] CNPNon 07-01-2024 [facility] SUSANNA MELTON ([id number]) 1970 F Date Time Provider Department 07/01/24 [facility] During your visit today, we recorded the following information about you: Ashlyn Mills RN 07/01/2024 11:39 AM Signed Pt called in to see if her Nebulizer solution was called into [facility] in [place]. I told her it was sent in, but it was sent later than the rest of the medication. Allergies As of Date: 07/01/2024 Noted Allergy Reaction SEASONAL ALLERGIES 11/22/2018 14 - Other: See Comments Date Reviewed: 07/01/2024 Reviewed by: Shobha Redd APRN.[facility] - Fully Assessed Reason for Visit: Nebulizer Solution [Other] Prescriptions as of 07/01/2024 - benzonatate (TESSALON PERLE) 100 mg capsule Take 1 capsule by mouth three times a day as needed. - methylPREDNISolone (MEDROL, JENNIFER,) 4 mg Dose-Pack Take as instructed per package. - amoxicillin-clavulanat e potassium (AUGMENTIN) 875-125 mg per tablet Take 1 tablet by mouth two times a day for 10 days. - albuterol (PROVENTIL) 5 mg/mL nebu Inhale 0.5 mL as instructed one time only for 1 dose. 1 DOSE NOW - BACK OFFICE. PLACE 0.5 ML PER DROPPER AND 2.5 ML OF NORMAL SALINE INTO RESERVOIR. - albuterol (PROVENTIL) 2.5 mg /3 mL (0.083 %) nebulizer solution Use 3 mL via nebulizer every 4 hours as needed for wheezing/shortness of breath. - albuterol HFA (PROVENTIL HFA, VENTOLIN HFA) 90 mcg/actuation inhaler Inhale 2 Puffs as instructed every 4 hours as needed for wheezing/shortness of breath. - doxycycline monohydrate 100 mg tablet Take 1 tablet by mouth two times a day for 7 days. - fluticasone (FLONASE) 50 mcg/actuation nasal spray Use 2 Sprays in each nostril once daily. Rinse mouth after use. - amLODIPine (NORVASC) 10 mg tablet Take 1 tablet by mouth once daily. - carBAMazepine (TEGRETOL) 200 mg tablet Take 1 tablet by mouth two times a day. - citalopram (CELEXA) 20 mg tablet Take 1 tablet by mouth once daily. - simvastatin (ZOCOR) 40 mg tablet Take 1 tablet by mouth daily at bedtime. - EPINEPHrine (EPIPEN) 0.3 mg/0.3 mL auto-injector Inject at onset of allergic reaction in thigh, okay to repeat with 2nd injection if needed. - conjugated estrogens (PREMARIN) vaginal cream Use 0.5 g vaginally two times a week. - ibuprofen (MOTRIN) 600 mg tablet Take 1 tablet by mouth every 6 hours as needed for Pain. Facility-Administered Medications as of 07/01/2024 - albuterol 2.5 mg/0.5 mL 2.5 mg nebulizer solution (PROVENTIL) Problem List As Of Date 07/01/2024 Noted Resolved Seizure disorder (HCC) [G40.909] 04/08/2007 BENIGN HYPERTENSION [I10] 04/08/2007 ADJUSTMENT DISORDER WITH DEPRESSED MOOD [F43.21]04/08/2007 Mixed hyperlipidemia [E78.2] 08/21/2018 Current smoker [F17.200] 08/21/2018 KENDALL III (vulvar intraepithelial neoplasia III) *01/29/2019 Encounter Status:Closed by ASHLYN MILLS on 07/01/24 Normal [facility] COVID AND INFLUENZA A/B AND RSV PCR, ROUTINEon 07-01-2024 SARS-CoV-2 (COVID-19) RNA RHONDA+probe Ql (Unsp spec) SARS-COV-2 (AGENT OF COVID-19) RNA: Not detected INFLUENZA A RNA: Not detected INFLUENZA B RNA: Not detected RESPIRATORY SYNCYTIAL VIRUS (RSV) RNA: Not detected Normal [facility] Comment on above: Performed By: #### C [facility] ####[facility] [id number] [address] [facility] CNOVon 06-24-2024 CNOV Office Visit ([facility] ) SUSANNA MELTON ([id number]) 1970 F Date Time Provider Department 06/24/24 12:15 PM CRICKET PÉREZ [facility] During your visit today, we recorded the following information about you: Temperature Pulse Respiration Blood pressure 99.7 degrees 118/minute 24/minute 147/85 Weight 73.5 kg Cricket Pérez PA 06/24/2024 12:19 PM Signed This note was created using Curious Hatter. Subjective Susanna Melton is a 53 year old female. HPI 53-year-old female presents for cough, chest congestion, nasal congestion, fevers, chills. Patient states she started getting sick about a week ago. She states she has nasal congestion, sinus pressure, sinus pain. She has cough and chest congestion. She states that she is coughing up some phlegm. No history of COPD or asthma, but is a smoker. She states she has been given an inhaler in the past when she has been sick, but ran out of it. She has been taking DayQuil/NyQuil with some improvement in symptoms. Patient has had some fevers intermittently. No sick contacts that she is aware of. No other complaint PAST MEDICAL HISTORY Diagnosis Date Depression Hyponatremia Unspecified epilepsy without mention of intractable epilepsy (HCC) Epilepsy Unspecified essential hypertension Essential hypertension PAST SURGICAL HISTORY Procedure Laterality Date CARPAL TUNNEL Right PAST SURGICAL HISTORY OF Nasal ballooning with ENT ALLERGIES Seasonal Allergies MEDICATIONS fluticasone (FLONASE) 50 mcg/actuation nasal spray Use 2 Sprays in each nostril once daily. Rinse mouth after use. amLODIPine (NORVASC) 10 mg tablet Take 1 tablet by mouth once daily. citalopram (CELEXA) 20 mg tablet Take 1 tablet by mouth once daily. simvastatin (ZOCOR) 40 mg tablet Take 1 tablet by mouth daily at bedtime. EPINEPHrine (EPIPEN) 0.3 mg/0.3 mL auto-injector Inject at onset of allergic reaction in thigh, okay to repeat with 2nd injection if needed. conjugated estrogens (PREMARIN) vaginal cream Use 0.5 g vaginally two times a week. ibuprofen (MOTRIN) 600 mg tablet Take 1 tablet by mouth every 6 hours as needed for Pain. albuterol HFA (PROVENTIL HFA, VENTOLIN HFA) 90 mcg/actuation inhaler Inhale 2 Puffs as instructed every 4 hours as needed for wheezing/shortness of breath. doxycycline monohydrate 100 mg tablet Take 1 tablet by mouth two times a day for 7 days. predniSONE (DELTASONE) 20 mg tablet Take 2 tablets by mouth once daily for 4 days. Take daily with food. carBAMazepine (TEGRETOL) 200 mg tablet Take 1 tablet by mouth two times a day. FAMILY HISTORY Problem Relation Age of Onset Hypertension Father Hypertension Mother Diabetes Mother Colon Cancer Maternal Aunt Cancer Maternal Uncle throat, smoker Social History Tobacco Use Smoking status: Every Day Current packs/day: 1.50 Average packs/day: 1.5 packs/day for 40.5 years (60.7 ttl pk-yrs) Types: Cigarettes Start date: 01/02/1984 Smokeless tobacco: Never Tobacco comments: Is down to a pack a day over the past 3 months (since July 2022) Vaping Use Vaping status: Never Used Substance Use Topics Alcohol use: No Drug use: No Review of Systems Constitutional: Positive for chills and fever. HENT: Positive for congestion, sinus pressure and sinus pain. Negative for ear pain and sore throat. Respiratory: Positive for cough. Negative for shortness of breath. Cardiovascular: Negative for chest pain. Gastrointestinal: Negative for diarrhea and vomiting. Objective BP 147/85 Pulse 118 Temp 37.6 ?C (99.7 ?F) Resp 24 Wt 73.5 kg (162 lb 0.6 oz) LMP 08/05/2007 SpO2 94% BMI 27.81 kg/m? Physical Exam Vitals and nursing note reviewed. Constitutional: General: She is not in acute distress. Appearance: Normal appearance. She is not toxic-appearing. HENT: Right Ear: Tympanic membrane and ear canal normal. Left Ear: Tympanic membrane and ear canal normal. Nose: Congestion present. Right Sinus: Maxillary sinus tenderness and frontal sinus tenderness present. Left Sinus: Maxillary sinus tenderness and frontal sinus tenderness present. Mouth/Throat: Mouth: Mucous membranes are moist. Eyes: Conjunctiva/sclera: Conjunctivae normal. Cardiovascular: Rate and Rhythm: Normal rate and regular rhythm. Pulmonary: Effort: Pulmonary effort is normal. Breath sounds: Wheezing present. Skin: General: Skin is warm and dry. Neurological: Mental Status: She is alert. Assessment and Plan ASSESSMENT/PLAN: 1. Sinobronchitis - ICD9: 473.9, 490, ICD10: J32.9, J40 - Will begin treatment with Doxycycline -Rx prednisone -Refill albuterol inhaler -Offered chest x-ray, patient declined. She had an x-ray back in April that was normal. She will follow-up with PCP if symptoms are persistent -Did also discuss with patient following up with PCP for possible PFTs/COPD (more content not included)... Normal [facility] XR Chest PA and Lateralon IMPRESSION: Stable exam with no acute radiographic abnormality. Secretary: PSCB Transcribe Date/Time: Apr 05 2023 5:21P Dictated by : CEZAR ONTIVEROS MD This examination was interpreted and the report reviewed and electronically signed by: CEZAR ONTIVEROS MD on Apr 05 2023 5:22PM [facility] DIVISION OF RADIOLOGY * * *Final Report* * * DATE OF EXAM: Apr 04 2023 9:15AM WOX [id number] - XR CHEST 2V FRONTAL/LAT / PROCEDURE REASON: Wheezing, Acute Cough * * * * Physician Interpretation * * * * EXAMINATION: CHEST RADIOGRAPH (2 VIEW FRONTAL & LATERAL) CLINICAL HISTORY: Bronchitis. MQ: XC2_6 EXAM DATE/TIME: 04/04/2023 9:15 AM COMPARISON: 03/01/2021. RESULT: Lines, tubes, and devices: None. Lungs and pleura: No consolidation. No lung mass. No pleural effusion. No pneumothorax. Cardiomediastinal silhouette: Normal cardiomediastinal silhouette. Bones and soft tissues: Unremarkable. DIVISION OF RADIOLOGY Provider, [facility] - 04/05/2023 * * *Final Report* * * DATE OF EXAM: Apr 04 2023 9:15AM WOX [id number] - XR CHEST 2V FRONTAL/LAT / PROCEDURE REASON: Wheezing, Acute Cough * * * * Physician Interpretation * * * * EXAMINATION: CHEST RADIOGRAPH (2 VIEW FRONTAL & LATERAL) CLINICAL HISTORY: Bronchitis. MQ: XC2_6 EXAM DATE/TIME: 04/04/2023 9:15 AM COMPARISON: 03/01/2021. RESULT: Lines, tubes, and devices: None. Lungs and pleura: No consolidation. No lung mass. No pleural effusion. No pneumothorax. Cardiomediastinal silhouette: Normal cardiomediastinal silhouette. Bones and soft tissues: Unremarkable. IMPRESSION IMPRESSION: Stable exam with no acute radiographic abnormality. Secretary: ARIELLE Transcribe Date/Time: Apr 05 2023 5:21P Dictated by : CEZAR ONTIVEROS MD This examination was interpreted and the report reviewed and electronically signed by: CEZAR ONTIVEROS MD on Apr 05 2023 5:22PM EST [facility] XR Chest PA and LateralOrder ed By: Ccf Provider on 04-05-2023 [facility] XR Chest PA and Lateralon Radiology Study observation (narrative) [facility] XR Chest PA and Lateralon IMPRESSION: No acute radiographic abnormality. Secretary: ARIELLE Transcribe Date/Time: Mar 01 2021 2:37P Dictated by : GONSALO VILLELA MD This examination was interpreted and the report reviewed and electronically signed by: GONSALO VILLELA MD on Mar 01 2021 2:38PM [facility] DIVISION OF RADIOLOGY * * *Final Report* * * DATE OF EXAM: Mar 01 2021 2:32PM WOX [id number] - XR CHEST 2V FRONTAL/LAT / PROCEDURE REASON: Tobacco abuse * * * * Physician Interpretation * * * * EXAMINATION: CHEST RADIOGRAPH (2 VIEW FRONTAL & LATERAL) CLINICAL HISTORY: Tobacco abuse MQ: XC2_6 EXAM DATE/TIME: 03/01/2021 2:32 PM COMPARISON: No relevant prior studies available. RESULT: Lines, tubes, and devices: None. Lungs and pleura: No consolidation. No lung mass. No pleural effusion. No pneumothorax. Cardiomediastinal silhouette: Normal cardiomediastinal silhouette. Bones and soft tissues: The spine shows degenerative changes. DIVISION OF RADIOLOGY Provider, [facility] - 03/01/2021 * * *Final Report* * * DATE OF EXAM: Mar 01 2021 2:32PM WOX 5291 - XR CHEST 2V FRONTAL/LAT / PROCEDURE REASON: Tobacco abuse * * * * Physician Interpretation * * * * EXAMINATION: CHEST RADIOGRAPH (2 VIEW FRONTAL & LATERAL) CLINICAL HISTORY: Tobacco abuse MQ: XC2_6 EXAM DATE/TIME: 03/01/2021 2:32 PM COMPARISON: No relevant prior studies available. RESULT: Lines, tubes, and devices: None. Lungs and pleura: No consolidation. No lung mass. No pleural effusion. No pneumothorax. Cardiomediastinal silhouette: Normal cardiomediastinal silhouette. Bones and soft tissues: The spine shows degenerative changes. IMPRESSION IMPRESSION: No acute radiographic abnormality. Secretary: PSCMere Transcribe Date/Time: Mar 01 2021 2:37P Dictated by : GONSALO VILLELA MD This examination was interpreted and the report reviewed and electronically signed by: GONSALO VILLELA MD on Mar 01 2021 2:38PM [facility] Radiology Study observation (narrative) [facility] XR Chest PA and LateralOrder ed By: Ccf Provider on 03-01-2021 [facility] Ashley 09-09-2018 CNPN Telephone (GYNML) SUSANNA MELTON ([id number]) 1970 F Date Time Provider Department 09/09/18 GREGORY GRECO (LINA) GYNML During your visit today, we recorded the following information about you: Gregory Greco RN, RN 09/09/2018 10:38 AM Signed Pt had multiple vulvar biopsies, vulvar laser ablation with Dr. Borja on 09/03/18 Pt calls today stating her urine is still cloudy and she didn't know if that was normal. She said it bradshaw every time she urinates but she is unsure if the burning is from the urine touching the incisions or actually in the urethra. Pt did not have catheter placed during surgery and says she never gets UTIs She started using lidocaine jelly yesterday on incisions and has noticed that it helped decrease the burning. Denies blood in urine. Denies fever Says her incisions are dry and intact and look well healed with no sign of infection. She is using sitz bath TID She has small amount of odorous clear, discharge Will route to CNPs to review and advise Rosario Rothman APRN.PROCESS CAMERA OPERATOR 09/09/2018 10:44 AM Signed The burning sensation is likely from the acidic urine touching the bx sites. Would rec doing sitz bath w each urination to help minimize this sx. Would monitor for fever/chills, back/abd pain. Cont lidocaine jelly for sx. Some drainage is normal after this procedure, would watch for purulent drainage, increased redness, or pain to vulvar sites. Thanks Gregory Greco, RN, RN 09/09/2018 11:15 AM Signed Tried calling pt to inform her of PROCESS CAMERA OPERATOR message below but line continues to ring No vm/no answering machine Will try calling again Elvi Cooley, RN, RN 09/09/2018 11:57 AM Signed Spoke with pt to clarify surgical vs UTI pain she is experiencing. Pt. States her pain is suprapubic and at the urethral opening on initiating urination and she also has frequency and urgency. Elo Bush, RN, RN 09/09/2018 3:47 PM Signed Spoke with patient and relayed plan from CAPACITOR ASSEMBLER. She is agreeable to plan and will update this office at the endo of the week. Will await update. Jina Ruiz, RN, RN 09/11/2018 1:57 PM Signed Patient called office to update that she is having the same urinary symptoms. They have not changed and she is getting concerned. Denies fever/chills. Will update medical team. Miriam Mejias APRN.PROCESS CAMERA OPERATOR 09/11/2018 2:[address] the order for the culture. If symptoms worsens or fever over the weekend, she will need to go to urgent care/ED. VIGNESH Moran APRN.CNP 09/11/2018 2:21 PM Signed Addended by: MIRIAM MEJIAS CNP on: 09/11/2018 02:21 PM Modules accepted: Orders Jina Ruiz RN, RN 09/11/2018 2:43 PM Signed Spoke to patient. She is agreeable to plan. Allergies As of Date: 09/09/2018 (No Known Allergies) Date Reviewed: 09/03/2018 Reviewed by: Bina (Rn) LINA Alvarenga - Fully Assessed Reason for Visit: Patient Question [9507] Primary Visit Diagnosis:Dysuria [R30.0] Order(s):URINE CULTURE [SQURCUL] Order #: [id number] FUTURE UA CHEMSTRIP ONLY [SQUA] Order #: [id number] FUTURE Prescriptions as of 09/09/2018 Sig: IBUPROFEN 600 MG TABLET Take 1 tablet by mouth every * DOCUSATE SODIUM 100 MG CAPSULE Take 1 capsule by mouth twice* SILVER SULFADIAZINE 1 % TOPIC* Apply 1 application to affect* LIDOCAINE 2 % MUCOSAL JELLY Apply 1 application to affect* CONJUGATED ESTROGENS 0.625 MG* Use 0.5 g vaginally twice a w* HYDRALAZINE 25 MG TABLET Take 1 tablet by mouth three * CITALOPRAM 20 MG TABLET Take 1 tablet by mouth once d* CARBAMAZEPINE 200 MG TABLET TAKE 1 TABLET TWICE DAILY FLUTICASONE PROPIONATE 50 MCG* Use 2 Sprays in each nostril * SIMVASTATIN 40 MG TABLET Take 1 tablet by mouth daily * ALBUTEROL SULFATE HFA 90 MCG/* Inhale 2 Puffs as instructed * Problem List As Of Date 09/09/2018 Noted Resolved Seizure disorder (HCC) [G40.909] INVALID FOR* More... BENIGN HYPERTENSION [I10] INVALID FOR* More... ADJUSTMENT DISORDER WITH DEPRESSED MOOD [F43.21]INVALID FOR* More... Mixed hyperlipidemia [E78.2] INVALID FOR* More... Current smoker [F17.200] INVALID FOR* More... Encounter Status:Closed by ROSARIO ROTHMAN CNP on 09/09/18 [facility] ANES Cecelia 09-03-2018 ANES POST HNO ID: [id number] Author: Juwan Brooks Service: Anesthesiology Author Type: Anesthesiologist Type: Anesthesia PostOp Filed: 09/03/2018 8:43 AM Note Text: POST ANESTHESIA EVALUATION NOTE SERVICE DATE: 09/03/2018 SERVICE TIME: 8:43 AM : 1970 Vitals: 09/03/18 0623 BP: 119/74 Pulse: 92 Resp: 16 Temp: 36.9 ?C (98.4 ?F) SpO2: 96% Validated Vital Signs: Yes No apparent anesthetic complications. The patient is appropriately hydrated with stable respiratory and cardiovascular status. Patient has safe and adequate airway control. The patient has appropriate pain relief and no significant post operative nausea or vomiting. The patient has achieved baseline mental status. Intra-Operative Events: No Significant Anesthesia Events Further assessment by Anesthesia Service: None Other Remarks: SIGNATURE: Juwan Brooks MD PATIENT NAME: Susanna Melton DATE: September 03, 2018 TIME: 8:43 AM PAGER/CONTACT #: [phone] [facility] ANES PREOPon 09-03-2018 ANES PREOP HNO ID: [id number] Author: Juwan Brooks Service: Anesthesiology Author Type: Anesthesiologist Type: Anesthesia PreOp Filed: 09/03/2018 7:08 AM Note Text: ANESTHESIOLOGY DAY OF SURGERY NOTE SERVICE DATE: 09/03/2018 SERVICE TIME: 7:07 AM : 1970 Procedure(s) (LRB): EXAM UNDER ANESTHESIA PELVIC / VAGINAL (N/A) LASER VULVA SIMPLE ~ CO2 (N/A) BIOPSY VULVA (N/A) Surgeon(s): Lefty Borja Estimated body mass index is 31.41 kg/m? as calculated from the following: Height as of 08/21/18: 162.6 cm (5' 4). Weight as of 08/21/18: 83 kg (183 lb). Most recent hematocrit and potassium results: Hematocrit 41.0 06/30/2018 Potassium 3.9 08/21/2018 ANES DOS/PREOP NOTE: Vitals: 09/03/18 0623 BP: 119/74 Pulse: 92 Resp: 16 Temp: 36.9 ?C (98.4 ?F) SpO2: 96% ACTIVE PROBLEM LIST Seizure Disorder (Hcc) Essential Hypertension, Benign Adjustment Disorder With Depressed Mood Mixed Hyperlipidemia Current Smoker PAST MEDICAL HISTORY Diagnosis Date - Depression - Hyponatremia - Unspecified epilepsy without mention of intractable epilepsy Epilepsy - Unspecified essential hypertension Essential hypertension PAST SURGICAL HISTORY Procedure Laterality Date - CARPAL TUNNEL Right - NONE - PAST SURGICAL HISTORY OF Nasal ballooning with ENT FAMILY HISTORY Problem Relation Age of Onset - Hypertension Father - Hypertension Mother - Diabetes Mother - Colon Cancer Maternal Aunt - Cancer Maternal Uncle throat, smoker Social History: Social History Tobacco Use - Smoking status: Current Every Day Smoker Packs/day: 1.00 Years: 30.00 Pack years: 30.00 Types: Cigarettes - Smokeless tobacco: Never Used Substance Use Topics - Alcohol use: No - Drug use: No No current facility-administered medications on file prior to encounter. Current Outpatient Medications on File Prior to Encounter: conjugated estrogens (PREMARIN) vaginal cream Use 0.5 g vaginally twice a week. hydrALAZINE (APRESOLINE) 25 mg tablet Take 1 tablet by mouth three times daily. citalopram (CELEXA) 20 mg tablet Take 1 tablet by mouth once daily. carBAMazepine (TEGRETOL) 200 mg tablet TAKE 1 TABLET TWICE DAILY fluticasone (FLONASE) 50 mcg/actuation nasal spray Use 2 Sprays in each nostril once daily. Rinse mouth after use. simvastatin (ZOCOR) 40 mg tablet Take 1 tablet by mouth daily at bedtime. albuterol HFA (PROAIR HFA) 90 mcg/actuation inhaler Inhale 2 Puffs as instructed every 6 hours as needed. Current Facility-Administered Medications: lidocaine 10 mg/mL (1 %) 1-2 mg injection (XYLOCAINE) 0.1-0.2 mL INTRADERMAL PRN Rosario (Bean Picker Machine Operator) Gargalianos lactated ringers infusion 5-30 mL/hr INTRAVENOUS CONTINUOUS Rosario (Bean Picker Machine Operator) Gargalianos Last Rate: 30 mL/hr at 09/03/18 0636 30 mL/hr at 09/03/18 0636 acetaminophen 1,000 mg tab(s) (TYLENOL) 1,000 mg ORAL Pre-Op Once Juwan Iditoiu promethazine 12.5 mg tab(s) (PHENERGAN) 12.5 mg ORAL Pre-Op Once Juwan Iditoiu lactated ringers infusion 30 mL/hr INTRAVENOUS CONTINUOUS Juwan Iditoiu Allergies: ALLERGIES No Known Allergies DOS EXAM: Adequate NPO Status: Yes Anesthetic Risks, Benefits, Alternatives, Personnel and Consent Discussed: Yes Patient agrees to proceed: Yes Previous Anesthesia: No history of adverse event Airway Assessment: MP 2; Neck ROM: Full ROM without neurologic symptoms; Airway Evaluation: No significant abnormalities Symptoms of Sleep Apnea: None Dentition: Dentures: both Additional Physical Exam: Lungs: Lungs clear to auscultation. Good diaphragmatic excursion. Cardiac: normal S1 and S2; no rubs, no murmurs, and no gallops Additional Pertinent Findings: N/A Blood Products: Not anticipated for this procedure Anesthetic Plan: General Anesthetic Monitoring: Standard ASA Monitors Pain Management Plan: Parenteral or Oral ASA Class: 2 Other Medical Problems:HTN, h/o epilepsy Chronic Beta Kajal medication administered within 24 hours: N/A I have interviewed and examined the patient. I have reviewed the medical record and/or the pre-anesthesia evaluation, pertinent labs, and test results. Significant changes in the patient's condition since the History and Physical, not otherwise documented in primary service progress notes: No This contains updated information obtained within 48 hours of Surgery/Procedure. SIGNATURE: Juwan Brooks MD PATIENT NAME: Susanna Melton DATE: September 03, 2018 TIME: 7:07 AM CSN: [id number] [facility] OPERATIVE NOon 09-03-2018 OPERATIVE NO HNO ID: [id number] Author: Lefty Borja Service: Gynecology Oncology Author Type: Physician Type: Operative Report Filed: 09/03/2018 11:44 AM Note Text: OPERATIVE/PROCEDURE REPORT LOG ID: [id number] SURGERY/PROCEDURE DATE: 09/03/2018 INCISION/PROCEDURE START TIME: 8:07 AM INCISION CLOSE/PROCEDURE END TIME: 8:24 AM SURGEON(S)/PROCEDURALI ST(S) AND SERVICE DESK TECHNICIAN(S): Surgeon(s) and Role: * Lefty Borja - Primary * Nayana Camilo - Resident - Assisting No Additional Staff SURGERY/PROCEDURE(S): Exam under anesthesia, multiple vulvar biopsies, vulvar laser ablation ANESTHESIA: General FINDINGS: Multiple lesions across bilateral labia majora and minora extending into perineum Procedure Details:? The patient was taken to the operating room and was placed on the operating room table, general anesthesia with endotracheal intubation was initiated, she was then placed in dorsal lithotomy position, attention was made to avoid any pressure injuries, I evaluated the ankle and hip joints bilaterally after positioning the lower extremity, there was adequate mobility of the joints and no evidence of pressure on the femoral or common peroneal nerves. She was then prepped and draped in a normal sterile fashion. Then the attention was directed to the biopsies, 3 mm punch biopsy was used and 5 biopsies were obtained: upper/lower labia left and right and perineal biopsy. Then these lesions were ablated with CO2 laser using CW 10 W. All lesions were ablated, hemostasis was excellent. ? Patient tolerated the procedure well. All counts were correct x 2 by the end of the case ? 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 Post-Op/Post-Procedure Diagnosis:Same ? Estimated Blood Loss:?100?mls ? Specimens:? Vulvar biopsies ? ? Implantable Devices:?None ? Drains:?None? ? Complications: None ? I performed the procedure with assistance. SIGNATURE: Lefty Borja MD PATIENT NAME: Susanna Melton DATE: September 03, 2018 TIME: 11:40 AM PAGER/CONTACT #: [facility] PLAN OF CAREon 09-03-2018 PLAN OF CARE HNO ID: [id number] Author: Diana Nam (Durable Medical Equipment Technician) Service: Pharmacy Author Type: ? Type: Plan of Care Filed: 09/03/2018 10:19 AM Note Text: PHARMACY BEDSIDE DELIVERY SERVICE Patient Name: Susanna Melton The marked outpatient medications were Filled at: [facility] and delivered to the patient's bedside to picked up at the pharmacy Medication List START taking these medications docusate sodium 100 mg capsule Commonly known as: COLACE Take 1 capsule by mouth twice daily. ibuprofen 600 mg tablet Commonly known as: MOTRIN Take 1 tablet by mouth every 6 hours as needed for Pain. oxyCODONE IR 5 mg immediate release tablet Commonly known as: ROXICODONE Take 1 tablet by mouth every 6 hours as needed for Pain for up to 3 days. Earliest Fill Date: 09/03/18 silver sulfADIAZINE 1 % cream Commonly known as: SILVADENE Apply 1 application to affected area once daily. CONTINUE taking these medications albuterol HFA 90 mcg/actuation inhaler Commonly known as: PROAIR HFA Inhale 2 Puffs as instructed every 6 hours as needed. carBAMazepine 200 mg tablet Commonly known as: TEGretol TAKE 1 TABLET TWICE DAILY citalopram 20 mg tablet Commonly known as: CeleXA Take 1 tablet by mouth once daily. conjugated estrogens vaginal cream Commonly known as: PREMARIN Use 0.5 g vaginally twice a week. fluticasone 50 mcg/actuation nasal spray Commonly known as: FLONASE Use 2 Sprays in each nostril once daily. Rinse mouth after use. hydrALAZINE 25 mg tablet Commonly known as: APRESOLINE Take 1 tablet by mouth three times daily. simvastatin 40 mg tablet Commonly known as: ZOCOR Take 1 tablet by mouth daily at bedtime. You might also be taking other medications not listed above. If you have questions about any of your other medications, talk to the person who prescribed them or your Primary Care Provider. Diana Nam (Teach The People) PAGER: [phone] September 03, 2018 10:19 AM [facility] PLAN OF CARE HNO ID: [id number] Author: Diana Nam (Teach The People) Service: Pharmacy Author Type: ? Type: Plan of Care Filed: 09/03/2018 10:18 AM Note Text: Pharmacy Discharge Medication Service: This patient has elected to receive their discharge prescriptions through the [facility] Bedside Prescription Delivery program. The prescriptions are currently being processed. A follow-up note will be entered once the prescriptions have been filled and delivered to the patient. Please contact me with any questions or updates to the patient's discharge medications. Diana Nam (Teach The People) DCT Contact Info: [phone] [facility] PLAN OF CARE HNO ID: [id number] Author: Diana Nam (Teach The People) Service: Pharmacy Author Type: ? Type: Plan of Care Filed: 09/03/2018 10:18 AM Note Text: TRANSITION PROGRAM MANAGER BEDSIDE DELIVERY SURVEY 1. Patient to use [facility] Bedside Delivery - YES Insurance Information as follows: 2. Insurance card on file - YES 3. Credit card for payment - N/A Patient has no prescriptions yet. Please page [phone] upon discharge. [facility] PROGRESSon 09-03-2018 Protein mass conc HNO ID: [id number] Author: Loli HerediaRn) LINA Ness Service: Nursing Author Type: Registered Nurse Type: Progress Notes Filed: 09/03/2018 10:26 AM Note Text: Given a sitz bath with instructions and a gissel-bottle. Teaching done on both. Patient has a good understanding of both. [facility] PT EDon 09-03-2018 PT ED HNO ID: [id number] Author: Loli HerediaRn) LINA Ness Service: Nursing Author Type: Registered Nurse Type: Patient Education Filed: 09/03/2018 10:16 AM Note Text: PATIENT EDUCATION TOPIC: PROCEDURE / SURGERY: Post-op Teaching: Symptom Management and Wound Care PATIENT NAME: Susanna Melton PATIENT LOCATION: [facility] POOL/[facility] OR POOL READINESS TO LEARN COGNITIVE ABILITY: Alert and oriented MOTIVATION TO LEARN: Eager Interested FAMILY SUPPORT: High - Very involved in pt care INSTRUCTION PROVIDED TO: Patient and Spouse PATIENT LEARNS BEST BY: Written Instruction - Hand-outs Verbal Instruction FACTORS AFFECTING LEARNING: None PHYSICAL LIMITATIONS AFFECTING LEARNING: None LEARNING RESPONSE DIAGNOSIS: ADULT: Well Adult PATIENT/FAMILY RESPONSE: Verbalizes understanding of: POST OPERATIVE INSTRUCTIONS RELATED TO: ROUTINE MONITORING AND PROCEDURES: N/A, CARE TO PREVENT COMPLICATIONS: N/A, PAIN CONTROL: N/A, USE OF KNEE IMMOBILIZER: N/A, HOW TO GAIN MOTION BACK: N/A, PRE DISCHARGE: N/A, ADVERSE CONDITIONS TO INFORM YOUR DOCTOR: NA METHOD OF INSTRUCTION: Written instruction - handouts Verbal instruction FOLLOW-UP PLAN: Patient instructed to call with any further issues INSTRUCTIONAL AIDS USED: NA SUPPLEMENTAL MATERIAL PROVIDED TO PATIENT: None REFERRAL (RECOMMENDATION): None Electronically Signed By: Loli Ness RN [facility] PT ED HNO ID: [id number] Author: Jenni HerediaRnEduardo Lawson RN Service: Nursing Author Type: Registered Nurse Type: Patient Education Filed: 09/03/2018 6:25 AM Note Text: PATIENT EDUCATION TOPIC: PROCEDURE / SURGERY: Pre-op Teaching: Protocols PATIENT NAME: Susanna Melton PATIENT LOCATION: [facility] OR POOL READINESS TO LEARN COGNITIVE ABILITY: Alert and oriented MOTIVATION TO LEARN: Interested FAMILY SUPPORT: Unable to assess - Family not present INSTRUCTION PROVIDED TO: Patient PATIENT LEARNS BEST BY: Individual Instruction FACTORS AFFECTING LEARNING: None PHYSICAL LIMITATIONS AFFECTING LEARNING: None LEARNING RESPONSE DIAGNOSIS: ADULT: surgery PATIENT/FAMILY RESPONSE: Verbalizes understanding of: PRE-OPERATIVE INSTRUCTIONS-Correct action to take to follow pre-operative instructions METHOD OF INSTRUCTION: Individual instruction FOLLOW-UP PLAN: Complete - No need for follow-up INSTRUCTIONAL AIDS USED: NA SUPPLEMENTAL MATERIAL PROVIDED TO PATIENT: None REFERRAL (RECOMMENDATION): None Electronically Signed By: Jenni Lawson RN Normal [facility] SURGICAL PATHOLOGYon 019 SURGICAL PATHOLOGY Specimen originated from [facility] Specimen #: [id number] Submitting Physician: LEFTY BORJA MD FINAL DIAGNOSIS Left upper labia, left lower labia, right upper labia, right lower labia and perineum; biopsies (A-E) - High-grade squamous intraepithelial lesion. LIONEL/dameon 09/04/2018 : Peter Lee M.D. (Electronic Signature) _ SPECIMEN SUBMITTED A: LEFT UPPER LABIA, BIOPSY B: LEFT LOWER LABIA, BIOPSY C: RIGHT UPPER LABIA, BIOPSY D: RIGHT LOWER LABIA, BIOPSY E: PERINEAL, BIOPSY CLINICAL DATA KENDALL III GROSS DESCRIPTION A. Received in formalin on Telfa gauze is a cylindrical segment of skin and subcutaneous tissue measuring 0.3 x 0.3 x 0.4 cm. On the surface there is a 0.3 cm pitts slightly elevated area. The specimen is bisected. Totally submitted in formalin in one cassette. B. Received in formalin on Telfa gauze is a 0.3 x 0.3 x 0.1 cm shave of skin. The specimen is bisected. Totally submitted in formalin in one cassette. C. Received in formalin on Telfa gauze is a cylindrical segment of skin and subcutaneous tissue measuring 0.3 x 0.3 x 0.3 cm. On the surface there is a 0.3 cm pitts slightly elevated area. The specimen is bisected. Totally submitted in formalin in one cassette. D. Received in formalin on Telfa gauze is a 0.3 x 0.3 x 0.1 cm shave of skin. The specimen is bisected. Totally submitted in formalin in one cassette. E. Received in formalin on Telfa gauze is a 0.4 x 0.3 x 0.2 cm shave of skin. On the skin surface is a 0.4 cm, pitts slightly elevated area. The specimen is bisected. Totally submitted in formalin in one cassette. Gross examination performed at [facility], [address] [place] [address] 09/03/2018 3:47:12 PM Date of Report: 09/04/2018 Date of Procedure: 09/03/2018 Date of Receipt: 09/03/2018 Submitted by: LEFTY BORJA MD Location: [facility] Diagnostic interpretation performed at [place] [address]. CLIA Number: [id number] [facility] NURSING PROGon 08-25-2018 Protein mass conc HNO ID: [id number] Author: Michelle (Rn) Navi RN Service: General Surgery Author Type: Registered Nurse Type: Nursing Progress Note Filed: 08/25/2018 11:33 AM Note Text: PACC Nurse Progress Note History AND Physical: PACC Visit Date: 08-21-18 Original HANDP Date: N/A ED visit Date: N/A Outside HANDP Scanned Date: N/A Labs Within Last 6 Months: CBC: Date 06-30-18 BMP/CMP: Date 08-21-18 HBA1C: Date 06-30-18 Within acceptable limits, results in EPIC Imaging Within Last 12 Months: N/A Cardiac Testing: N/A Last Menstrual Period: LMP Date: 08-05-2007 Postmenopausal >1yr: Yes, S/P Hysterectomy: No BMI Percentile (PEDS): N/A Risk Assessment: N/A Anesthesia Review: N/A Narrative: N/A Pre-op Considerations: Per HANDP: Seizure disorder (HCC) Assessment: on rx, stable, no seizures per pt in 30 yrs. Follows neurology BENIGN HYPERTENSION Assessment: controlled, on rx ADJUSTMENT DISORDER WITH DEPRESSED MOOD Assessment: stable, on rx Mixed hyperlipidemia Assessment: on rx Current smoker Chart Check: COMPLETED Michelle Mcelroy RN August 25, 2018 11:32 AM [facility] HOSPon 07-21-2018 HOSP Patient:Carmenza Melton MRN: Height:5' 4(1.626 m) Weight:183 lb (83.008 kg) Outpatient Medications as of 09/03/18: conjugated estrogens (PREMARIN) vaginal cream hydrALAZINE (APRESOLINE) 25 mg tablet citalopram (CELEXA) 20 mg tablet carBAMazepine (TEGRETOL) 200 mg tablet fluticasone (FLONASE) 50 mcg/actuation nasal spray simvastatin (ZOCOR) 40 mg tablet albuterol HFA (PROAIR HFA) 90 mcg/actuation inhaler Admission/Clinic Administered Medications as of 09/03/18: lidocaine 10 mg/mL (1 %) 1-2 mg injection (XYLOCAINE) lactated ringers infusion lactated ringers infusion Problem List: Seizure disorder (HCC) [G40.909] Essential hypertension, benign [I10] Adjustment disorder with depressed mood [F43.21] Mixed hyperlipidemia [E78.2] Current smoker [F17.200] Allergies: No Known Allergies Date Verified:09/03/18 Lab Values Lab Value Units Date High Low POTA* 3.9 mmol/L 08/21/2018 5.1 3.7 Progress Notes ([facility]): Elvi Cooley RN, RN 08/28/2018 10:59 AM Signed Unable to LVM @ number provided. Automated message stated republican is unavailable please try back later. Progress Notes ([facility]): Elvi Cooley RN, RN 08/26/2018 11:31 AM Signed LVM for pt to call office for preop teaching. Awaiting call back. [facility] Vital Signs Date Time Vital Sign Value Performing Clinician Facility 01-18-2025 08:54-0400 Diastolic blood pressure 83 mm[Hg] Bren Hanson PA-C Work Phone: [facility] 01-18-2025 08:54-0400 Heart rate 93 /min Bren Hanson PA-C Work Phone: [facility] 01-18-2025 08:54-0400 Systolic blood pressure 152 mm[Hg] Bren Bogner PA-C Work Phone: [facility] 01-18-2025 08:19-0400 Body mass index (BMI) [Ratio] 26.17 kg/m2 Bren Bogner PA-C Work Phone: [facility] 01-18-2025 08:19-0400 Body weight 65.41 kg Bren Bogner PA-C Work Phone: [facility] 01-18-2025 08:19-0400 Respiratory rate 16 /min Bren Bogner PA-C Work Phone: [facility] 08-13-2024 07:54-0400 Body height 158.1 cm Gardenia Mcfadden MD Work Phone: [facility] 08-13-2024 07:54-0400 Body mass index (BMI) [Ratio] 29.04 kg/m2 Gardenia Mcfadden MD Work Phone: [facility] 08-13-2024 07:54-0400 Body weight 72.58 kg Gardenia Mcfadden MD Work Phone: [facility] 08-13-2024 07:54-0400 Diastolic blood pressure 96 mm[Hg] Gardenia Mcfadden MD Work Phone: [facility] 08-13-2024 07:54-0400 Heart rate 85 /min Gardenia Mcfadden MD Work Phone: [facility] 08-13-2024 07:54-0400 Respiratory rate 18 /min Gardenia Mcfadden MD Work Phone: [facility] 08-13-2024 07:54-0400 SaO2% (BldA) [Mass fraction] 95 % Gardenia Mcfadden MD Work Phone: [facility] 08-13-2024 07:54-0400 Systolic blood pressure 148 mm[Hg] Gardenia Mcfadden MD Work Phone: [facility] 08-04-2024 10:27-0500 Body height 158.1 cm Pulm Wstr Work Phone: [facility] 08-04-2024 10:27-0500 Body mass index (BMI) [Ratio] 29.04 kg/m2 Pulm Wstr Work Phone: [facility] 08-04-2024 10:27-0500 Body weight 72.58 kg Pulm Wstr Work Phone: [facility] 08-04-2024 10:27-0500 Heart rate 116 /min Pulm Wstr Work Phone: [facility] 08-04-2024 10:27-0500 Respiratory rate 18 /min Pulm Wstr Work Phone: [facility] 08-04-2024 10:27-0500 SaO2% (BldA) [Mass fraction] 93 % Pulm Wstr Work Phone: [facility] 07-01-2024 10:03-0500 Diastolic blood pressure 74 mm[Hg] Shobha Redd 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: [facility] Comment on above: after breathing phil tment 07-01-2024 10:03-0500 Heart rate 94 /min Shobha Redd 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: [facility] 07-01-2024 10:03-0500 Respiratory rate 14 /min Shobha Redd 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: [facility] 07-01-2024 10:03-0500 SaO2% (BldA) [Mass fraction] 97 % Shobha Redd 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: [facility] 07-01-2024 10:03-0500 Systolic blood pressure 122 mm[Hg] Shobha Redd 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: [facility] Comment on above: after breathing phil tment 07-01-2024 09:13-0500 Body mass index (BMI) [Ratio] 27.12 kg/m2 Shobha Redd 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: [facility] 07-01-2024 09:13-0500 Body weight 71.67 kg Shobha Redd 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: [facility] 06-24-2024 12:10-0500 Body mass index (BMI) [Ratio] 27.81 kg/m2 Krislyn Aberegg PA Work Phone: [facility] 06-24-2024 12:10-0500 Body temperature 99.7 [degF] Krislyn Aberegg PA Work Phone: [facility] 06-24-2024 12:10-0500 Body weight 73.5 kg Krislyn Aberegg PA Work Phone: [facility] 06-24-2024 12:10-0500 Diastolic blood pressure 85 mm[Hg] Krislyn Aberegg PA Work Phone: [facility] 06-24-2024 12:10-0500 Heart rate 118 /min Krislyn Aberegg PA Work Phone: [facility] 06-24-2024 12:10-0500 Respiratory rate 24 /min Krislyn Aberegg PA Work Phone: [facility] 06-24-2024 12:10-0500 SaO2% (BldA) [Mass fraction] 94 % Krislyn Aberegg PA Work Phone: [facility] 06-24-2024 12:10-0500 Systolic blood pressure 147 mm[Hg] Krislyn Aberegg PA Work Phone: [facility] 04-04-2023 14:16-0400 Body height 162.6 cm Shobha Redd 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: [facility] 04-04-2023 14:16-0400 Body temperature 98.6 [degF] Shobha Redd 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: [facility] 04-04-2023 14:16-0400 Body weight 72.12 kg Shobha Redd 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: [facility] 04-04-2023 14:16-0400 Diastolic blood pressure 62 mm[Hg] Shobha Redd 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: [facility] 04-04-2023 14:16-0400 Heart rate 92 /min Shobha Redd 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: [facility] 04-04-2023 14:16-0400 Respiratory rate 18 /min Shobha Redd 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: [facility] 04-04-2023 14:16-0400 SaO2% (BldA) [Mass fraction] 95 % Shobha Redd 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: [facility] 04-04-2023 14:16-0400 Systolic blood pressure 116 mm[Hg] Shobha Redd 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: [facility] 10-07-2022 08:45-0400 Body weight 79.92 kg Floyd Neel 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: [facility] 10-07-2022 08:45-0400 Diastolic blood pressure 86 mm[Hg] Floyd Neel 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: [facility] 10-07-2022 08:45-0400 Heart rate 83 /min Floyd Neel 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: [facility] 10-07-2022 08:45-0400 Respiratory rate 16 /min Floyd Neel 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: [facility] 10-07-2022 08:45-0400 SaO2% (BldA) [Mass fraction] 95 % Floyd Neel 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: [facility] 10-07-2022 08:45-0400 Systolic blood pressure 138 mm[Hg] Floyd Neel 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: [facility] Encounters Encounter Date Encounter Type Care Provider Facility Start: 01-18-2025 End: 01-18-2025 Office outpatient visit 25 minutes Bren Hanson PA-C Work Phone: [facility] [place] Comment on above: Mixed hyperlipidemia (Primary Dx); Encounter for screening mammogram for breast cancer; Screening for depression; Encounter for screening examination for other mental health and behavioral disorders; Screening for colon cancer; Screening for cervical cancer; Essential hypertension, benign; Adjustment disorder with depressed mood; Seizure disorder (HCC); Vitamin D deficiency; Chronic bronchitis, unspecified chronic bronchitis type (HCC); Nicotine dependence, cigarettes, uncomplicated Start: 01-18-2025 End: 01-18-2025 ambulatory HUDSON VIDALES Facility:[facility] Start: 01-07-2025 End: 01-07-2025 ambulatory GARDENIA MCFADDEN Facility:[facility] Start: 12-29-2024 End: 01-13-2025 Telephone encounter Hudson Kirkrison DO Work Phone: [facility] [place] Comment on above: Forms Start: 11-12-2024 End: 11-15-2024 ambulatory Hudson Kirkrison DO Work Phone: [facility] [place] Comment on above: Breathing Problem Start: 10-27-2024 End: 10-27-2024 Telephone encounter Oksana Thomason APRN.PROCESS CAMERA OPERATOR Work Phone: [facility] [place] Start: 10-15-2024 End: 10-15-2024 Telephone encounter Hudson Kirkrison DO Work Phone: [facility] [place] Start: 10-14-2024 End: 10-14-2024 Telephone encounter Oksana Thomason APRN.PROCESS CAMERA OPERATOR Work Phone: [facility] [place] Start: 10-13-2024 End: 10-14-2024 Telephone encounter Floyd Beach APRN.PROCESS CAMERA OPERATOR Work Phone: [facility] [place] Comment on above: disablity paperwork Start: 08-23-2024 End: 08-23-2024 Refill Hudson Kirkrison DO Work Phone: [address] [place] [address] Comment on above: Refill Request Start: 08-13-2024 End: 08-13-2024 ambulatory GARDENIA MCFADDEN Facility:[facility] Start: 08-13-2024 End: 08-13-2024 Patient encounter procedure Gardenia Mcfadden MD Work Phone: Pulmonary Medicine Comment on above: COPD, moderate (HCC) (Primary Dx); Centrilobular emphysema (HCC); Seasonal allergies; Lung nodules; Cigarette smoker Start: 08-10-2024 End: 09-10-2024 ambulatory Hudson Vidales DO Work Phone: [facility] [place] Start: 08-05-2024 End: 08-05-2024 Follow-up encounter Shobha Redd APRN.PROCESS CAMERA OPERATOR Work Phone: [facility] [place] Start: 08-04-2024 End: 08-10-2024 Follow-up encounter Shobha Redd APRN.PROCESS CAMERA OPERATOR Work Phone: [facility] [place] Comment on above: Chronic cough (Prima ry Dx); Pulmonary emphysema, unspecified emphysema type (HCC) Start: 08-04-2024 End: 08-04-2024 ambulatory Pulm Lab [facility] Work Phone: [facility] Comment on above: Spirometry Start: 08-04-2024 End: 08-04-2024 Patient encounter procedure Pulm [facility] Work Phone: [facility] Start: 08-04-2024 End: 08-04-2024 Subsequent hospital visit by physician Ct [facility] (I-Stat) Work Phone: Cat Scan Comment on above: Chronic cough [R05.3 ] Start: 08-03-2024 End: 08-03-2024 Refill Hudson Vidales DO Work Phone: [facility] [place] Comment on above: Refill Request Start: 07-19-2024 End: 07-19-2024 Follow-up encounter Shobha Redd APRN.PROCESS CAMERA OPERATOR Work Phone: [facility] [place] Comment on above: Chronic cough (Prima ry Dx) Start: 07-15-2024 End: 07-15-2024 ambulatory HUDSON L VIDALES Facility:[facility] Start: 07-15-2024 End: 07-15-2024 Subsequent hospital visit by physician Joao [facility] [place] Work Phone: Radiology Comment on above: Sinobronchitis [J32. 9, J40] Start: 07-07-2024 End: 07-08-2024 Telephone encounter Shobha Redd APRN.PROCESS CAMERA OPERATOR Work Phone: [facility] Comment on above: Results Start: 07-01-2024 End: 07-01-2024 Refill Shobha Redd APRN.PROCESS CAMERA OPERATOR Work Phone: [facility] Comment on above: Refill Request Start: 07-01-2024 End: 07-01-2024 Telephone encounter Hudson Vidales DO Work Phone: [facility] [place] Comment on above: Nebulizer Solution Start: 07-01-2024 End: 07-01-2024 Office outpatient visit 25 minutes Shobha Redd APRN.PROCESS CAMERA OPERATOR Work Phone: [facility] Comment on above: Sinobronchitis (Prim suhas Dx); Diarrhea, unspecified type; Flu-like symptoms Start: 07-01-2024 End: 07-01-2024 ambulatory HUDSON L VIDALES Facility:[facility] Start: 06-24-2024 End: 06-24-2024 ambulatory HUDSON L VIDALES Facility:[facility] Start: 06-24-2024 End: 06-24-2024 Patient encounter procedure Cricket JOY Work Phone: [facility] Comment on above: Sinobronchitis (Prim suhas Dx) Start: 01-02-2024 Refill Hudson Stafford son DO Work Phone: [facility] Comment on above: Refill Request Start: 09-10-2023 ambulatory Hudson tirado DO Work Phone: [facility] [place] Start: 04-04-2023 End: 04-04-2023 Subsequent hospital visit by physician Joao [facility] [place] Work Phone: Radiology Start: 04-04-2023 End: 04-04-2023 Patient encounter procedure Shobha Tramaine 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: [facility] [place] Comment on above: Acute cough (Primary Dx); Sinobronchitis; Wheezing Start: 12-05-2022 Refill Hudson tirado DO Work Phone: [facility] [place] Comment on above: Refill Request Start: 10-08-2022 Telephone encounter Hudson thorpe DO Work Phone: [facility] [place] Comment on above: Insurance Authorizat ion (Epi-pen) Start: 10-07-2022 End: 10-07-2022 Patient encounter procedure [place] APRN.PROCESS CAMERA OPERATOR Work Phone: [facility] [place] Comment on above: Well adult exam ([facility] Dx); Adjustment disorder with depressed mood; Hyperlipidemia, mixed; Hypertension, essential; Tobacco abuse; Seizure disorder (HCC); Screening for colon cancer; Special screening for malignant neoplasms, colon; Encounter for screening for lung cancer; Encounter for screening mammogram for malignant neoplasm of breast; Encounter for immunization Start: 10-07-2022 End: 10-07-2022 Patient encounter status [place] APRN.PROCESS CAMERA OPERATOR Work Phone: [facility] [place] Start: 09-30-2022 Refill Hudson tirado DO Work Phone: [facility] [place] Comment on above: Refill Request Start: 07-15-2022 Refill Hudson tirado DO Work Phone: [facility] [place] Comment on above: Refill Request Start: 06-21-2022 Refill Hudson Stafford son DO Work Phone: [facility] [place] Comment on above: Refill Request Start: 01-23-2022 Refill Hudson tirado DO Work Phone: [facility] [place] Comment on above: Refill Request Start: 12-31-2021 Refill Hudson tirado DO Work Phone: [facility] [place] Comment on above: Refill Request Start: 11-28-2021 ambulatory Hudson tirado DO Work Phone: Internal Medicine [facility] [place] Start: 03-01-2021 End: 03-01-2021 Subsequent hospital visit by physician Xr [facility] [place] Work Phone: Radiology Comment on above: Tobacco abuse [Z72.0 ] Start: 09-03-2018 End: 09-03-2018 Patient encounter procedure [facility] Procedures Date Procedure Procedure Detail Performing Clinician Start: 01-18-2025 Adult depression scr eening assessment Bren Hanson PA-C Work Phone: Start: 08-04-2024 Ct thorax w/o contra st material Shobha Redd 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: Start: 08-04-2024 Brncdilat rspse spmt ry pre&post-brncdilat admn Shobha Redd 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: Start: 07-15-2024 Radiologic exam ches t 2 views Shobha Redd 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: Start: 04-04-2023 Radiologic exam ches t 2 views Shobha Redd 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: Start: 10-07-2022 [employer] COVI D-19 BIVALENT VACCINE, AGE 12+ YR [place] 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: Start: 10-07-2022 Lipid 1996 panel - S alverto or Plasma Shobha Redd 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: Start: 03-01-2021 Radiologic exam ches t 2 views [place] 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: Start: 08-10-2019 Mammography Hudson regalado DO Work Phone: Start: 06-19-2018 Adult depression scr eening assessment Hudson Vidales DO Work Phone: Plan of Treatment Date Care Activity Detail Author Start: 10-08-2027 Lipid 1996 panel - S alverto or Plasma Lipid Screening [facility] Start: 10-08-2027 Lipid panel Lipid Screening [facility] Start: 10-08-2027 LIPID SCREEN LIPID SCREEN [facility] Start: 08-10-2026 LIPID SCREEN LIPID SCREEN [facility] Start: 01-18-2026 Annual PCP Team Camera 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 Disease Visit Annual PCP Team Chronic Disease Visit [facility] Start: 01-18-2026 Anxiety Screening Anxiety Screening [facility] Start: 01-18-2026 Depression Screening Depression Scre ening [facility] Start: 10-07-2025 DIABET[facility]CRE[facility] Start: 10-07-2025 Diabetes Screening Diabetes Screenin g [facility] Start: 09-21-2025 End: 09-21-2025 ambulatory 09/21/2025 1:00 PM EDT OT/PT/Speech Visit [facility] [address] [place] [address] Kai Eason, PT [address] [place], [place] [id number] Chronic bronchitis, unspecified chronic bronchitis type (HCC) [J42] [facility] Comment on above: Chronic bronchitis, unspecified chronic bronchitis type (HCC) [J42] Start: 08-13-2025 End: 09-12-2025 CT Chest WO contrast CT CHEST WO IVCON Radiology Routine Lung nodules Expected: 08/13/2025, Expires: 09/12/2025 [facility] Comment on above: Expected: 08/13/2025 , Expires: 09/12/2025 Start: 08-04-2025 Screening for malign ant neoplasm of lung Lung Cancer Screening [facility] Start: 07-01-2025 Annual PCP Team Camera 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 Disease Visit Annual PCP Team Chronic Disease Visit [facility] Start: 07-01-2025 BP Controlled (<130/80) BP Controlle d (<130/80) [facility] Start: 05-10-2025 End: 05-10-2025 Patient encounter procedure 05/10/2025 10:30 AM EST Office Visit Pulmonary Medicine [address] [place] [address] Milvia Maloney, OIL BURNER SERVICER AND INSTALLER.PROCESS CAMERA OPERATOR [address] [place] [address] 4 month f/u Pulmonary Medicine Comment on above: 4 month f/u Start: 04-20-2025 End: 04-20-2025 Patient encounter procedure 04/20/2025 9:00 AM EST Office Visit [facility] [place] [address] [facility] [place] [address] Oksana Thomason APRN.PROCESS CAMERA OPERATOR [address] [facility] [place], [place] [id number] 3 mo follow up [facility] [place] Comment on above: 3 mo follow up Start: 03-03-2025 End: 03-03-2025 Patient encounter procedure 03/03/2025 2:00 PM EDT Office Visit OB/Gynecology [address] [place] [address] Lexie Clayton APRN.PROCESS CAMERA OPERATOR [address] [place] [address] annual/re-establish care OB/Gynecology Comment on above: annual/re-establish care Start: 01-31-2025 Influenza vaccination C [facility] Start: 01-25-2025 End: 01-25-2025 Patient encounter procedure 01/25/2025 3:40 PM EDT Appointment Mammogram [address] [place] [address] Dx: Encounter for screening mammogram for breast cancer [Z12.31] Mammogram Comment on above: Dx: Encounter for sc reening mammogram for breast cancer [Z12.31] Start: 01-21-2025 End: 01-21-2025 Patient encounter procedure 01/21/2025 10:30 AM EDT Office Visit General Surgery [address] [place] [address] Massiel Griffin, OIL BURNER SERVICER AND INSTALLER.PROCESS CAMERA OPERATOR [address] [place] [address] Dx: Screening for colon cancer [Z12.11] General Surgery Comment on above: Dx: Screening for co antelmo cancer [Z12.11] Start: 01-18-2025 End: 04-19-2025 25-hydroxyvitamin D3 [Mass/volume] in Serum or Plasma [facility] Comment on above: Expected: 01/18/2025 , Expires: 04/19/2025 Start: 01-18-2025 End: 04-19-2025 CBC panel - Blood by Automated count [facility] Comment on above: Expected: 01/18/2025 , Expires: 04/19/2025 Start: 01-18-2025 End: 04-19-2025 Comprehensive metabolic 2000 panel - Serum or Plasma [facility] Comment on above: Expected: 01/18/2025 , Expires: 04/19/2025 Start: 01-18-2025 End: 04-19-2025 Hemoglobin A1c in Blood [facility] Comment on above: Expected: 01/18/2025 , Expires: 04/19/2025 Start: 01-18-2025 End: 04-19-2025 Lipid 1996 panel - Serum or Plasma [facility] Comment on above: Expected: 01/18/2025 , Expires: 04/19/2025 Start: 01-18-2025 End: 04-19-2025 Thyrotropin [Units/volume] in Serum or Plasma [facility] Comment on above: Expected: 01/18/2025 , Expires: 04/19/2025 Start: 01-18-2025 End: 01-18-2025 Patient encounter procedure 01/18/2025 8:20 AM EDT Office Visit [facility] [place] [address] [place] [address] Bren Hanson PA-C [address] [place] [address] short term disability paperwork per [facility] [place] Comment on above: short term disabilit y paperwork per TE Start: 01-07-2025 End: 01-07-2025 Patient encounter procedure 01/07/2025 10:30 AM EDT Office Visit Pulmonary Medicine [address] [place] [phone] Gardenia Mcfadden MD [address] [place] [address] 4 month fu Pulmonary Medicine Comment on above: 4 month fu Start: 08-13-2024 End: 11-12-2024 ALPHA 1 ANTITRYP PHEN/GENOTYPE [facility] Work Phone: Comment on above: Expected: 08/13/2024 , Expires: 11/12/2024 Start: 08-13-2024 End: 08-13-2024 Patient encounter procedure 08/13/2024 8:00 AM EDT Office Visit Pulmonary Medicine [address] [place] [phone] Gardenia Mcfadden MD [address] [place] [id number] cough Pulmonary Medicine Comment on above: cough Start: 08-10-2024 DIABETES SCREEN DIABETES SCREEN [facility] Start: 08-09-2024 HPV TESTING HPV TESTING [facility] Start: 08-09-2024 PAP TESTING PAP TESTING [facility] Start: 08-09-2024 Screening for malign ant neoplasm of cervix [facility] Start: 08-04-2024 End: 08-04-2024 Patient encounter procedure 08/04/2024 11:20 AM EST Appointment Cat Scan [address] [place] [id number] Chronic cough [R05.3] Cat Scan Comment on above: Chronic cough [R05.3 ] Start: 08-04-2024 End: 08-04-2024 ambulatory PULM [facility] Comment on above: Chronic cough [R05.3 ] Start: 07-15-2024 Urine microalbumin profile [facility] Start: 04-04-2024 Annual PCP Team Camera 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 Disease Visit Annual PCP Team Chronic Disease Visit [facility] Start: 04-04-2024 BP Controlled (<130/80) BP Controlle d (<130/80) [facility] Start: 02-01-2024 Covid-19 Vaccine () Covid-19 Vaccine () [facility] Start: 02-01-2024 Covid-19 Vaccine ( season) Covid-19 Vaccine ( season) [facility] Start: 02-01-2024 Influenza vaccination C [facility] Start: 10-08-2023 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 TEAM UI 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 WITH 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 JS JINNY DISEASE VISIT ANNUAL PCP TEAM CHRONIC DISEASE VISIT [facility] Start: 10-08-2023 HEPATITIS B (1 of 3 - 3-dose series) HEPATITIS B (1 of 3 - 3-dose series) [facility] Comment on above: Postponed from 07/09 (Declined at this time) Start: 10-08-2023 Hepatitis B Vaccine (1 of 3 - 19+ 3-dose series) Hepatitis B Vaccine (1 of 3 - 19+ 3-dose series) [facility] Comment on above: Postponed from 07/09 (Declined at this time) Start: 10-08-2023 Hepatitis B Vaccine (1 of 3 - 3-dose series) Hepatitis B Vaccine (1 of 3 - 3-dose series) [facility] Comment on above: Postponed from 07/09 (Declined at this time) Start: 10-08-2023 PNEUMOCOCCAL (2 - PCV) PNEUMOCOCCAL (2 - PCV) [facility] Comment on above: Postponed from 07/15 (Declined at this time) Start: 10-08-2023 Pneumococcal vaccination [facility] Comment on above: Postponed from 07/15 (Declined at this time) Start: 10-08-2023 SHINGRIX VACCINE (1 of 2) LLOYD GRIX VACCINE (1 of 2) [facility] Comment on above: Postponed from 07/09 (Declined at this time) Start: 06-02-2023 Behavioral Health Screening Behavioral Health Screening [facility] Start: 01-31-2023 Covid-19 Vaccine ( season) Covid-19 Vaccine ( season) [facility] Start: 01-31-2023 Influenza vaccination C [facility] Start: 09-30-2022 End: 11-30-2022 25-hydroxyvitamin D3 [Mass/volume] in Serum or Plasma VITAMIN D 25 HYDROXY Lab Routine Hypertension, essential Encounter for vitamin deficiency screening Expected: 09/30/2022, Expires: 11/30/2022 [facility] Work Phone: Comment on above: Expected: 09/30/2022 , Expires: 11/30/2022 Start: 09-30-2022 End: 11-30-2022 CBC panel - Blood by Automated count CBC Lab Routine Hypertension, essential Screening for diabetes mellitus Expected: 09/30/2022, Expires: 11/30/2022 [facility] Work Phone: Comment on above: Expected: 09/30/2022 , Expires: 11/30/2022 Start: 09-30-2022 End: 11-30-2022 Comprehensive metabolic 2000 panel - Serum or Plasma COMP METABOLIC PANEL Lab Routine Hypertension, essential Elevated BUN Screening for diabetes mellitus Expected: 09/30/2022, Expires: 11/30/2022 [facility] Work Phone: Comment on above: Expected: 09/30/2022 , Expires: 11/30/2022 Start: 09-30-2022 End: 11-30-2022 Hemoglobin A1c in Blood HGB A1C Lab Routine Hypertension, essential Screening for diabetes mellitus Expected: 09/30/2022, Expires: 11/30/2022 [facility] Work Phone: Comment on above: Expected: 09/30/2022 , Expires: 11/30/2022 Start: 09-30-2022 End: 11-30-2022 Lipid 1996 panel - Serum or Plasma LIPID PANEL BASIC Lab Routine Hypertension, essential Hyperlipidemia, mixed Expected: 09/30/2022, Expires: 11/30/2022 [facility] Work Phone: Comment on above: Expected: 09/30/2022 , Expires: 11/30/2022 Start: 09-30-2022 End: 11-30-2022 Thyrotropin [Units/volume] in Serum or Plasma TSH BLD Lab Routine Hypertension, essential Screening for thyroid disorder Expected: 09/30/2022, Expires: 11/30/2022 [facility] Work Phone: Comment on above: Expected: 09/30/2022 , Expires: 11/30/2022 Start: 09-30-2022 End: 11-30-2022 Thyroxine (T4) free [Mass/volume] in Serum or Plasma T4 FREE/FREE THYROX Lab Routine Hypertension, essential Screening for thyroid disorder Expected: 09/30/2022, Expires: 11/30/2022 [facility] Work Phone: Comment on above: Expected: 09/30/2022 , Expires: 11/30/2022 Start: 09-30-2022 End: 11-30-2022 Triiodothyronine (T3) [Mass/volume] in Serum or Plasma T3 BLD Lab Routine Hypertension, essential Screening for thyroid disorder Expected: 09/30/2022, Expires: 11/30/2022 [facility] Work Phone: Comment on above: Expected: 09/30/2022 , Expires: 11/30/2022 Start: 08-13-2022 ANNUAL PCP TEAM UI DEVELOPER WITH ANGULAR JS JINNY DISEASE VISIT ANNUAL PCP TEAM CHRONIC DISEASE VISIT [facility] Start: 06-02-2022 DEPRESSION ASSESSMENT DEPRESSION ASS ESSMENT [facility] Start: 03-01-2022 BP CONTROLLED (<130/80) BP CONTROLLE D (<130/80) [facility] Start: 01-31-2022 Influenza vaccination INFLUENZA (#1) [facility] Start: 09-15-2021 COVID-19 VACCINE (4 - Booster) COVID-19 VACCINE (4 - Booster) [facility] Start: 07-12-2021 COVID-19 VACCINE (4 - Booster) COVID-19 VACCINE (4 - Booster) [facility] Start: 08-09-2020 Mammography [facility] Start: 08-09-2020 Screening for malign ant neoplasm of breast Mammogram Screening [facility] Start: 06-19-2019 Adult depression scr eening assessment DEPRESSION SCREENING [facility] Start: 2018 Influenza vaccination LUNG CANCER SC REENING [facility] Start: 2018 Screening for malign ant neoplasm of lung Lung Cancer Screening [facility] Start: 2018 SHINGRIX VACCINE (1 of 2) LLOYD GRIX VACCINE (1 of 2) [facility] Start: 07-15-2015 PNEUMOCOCCAL (2 - PCV) PNEUMOCOCCAL (2 - PCV) [facility] Start: 07-15-2015 Pneumococcal vaccination Pneum ococcal Vaccine (2 of 2 - PCV) [facility] Start: 07-15-2015 Pneumococcal Vaccine : 50+ (2 of 2 - PCV) Pneumococcal Vaccine: 50+ (2 of 2 - PCV) [facility] Start: 2013 COLOGUARD (FIT-DNA) COLOGUARD (FIT-D NA) [facility] Start: 2013 Colonoscopy COLONOSCOPY [facility] Start: 2013 COLORECTAL CANCER SCREENING COLORECTAL CANCER SCREENING [facility] Start: [address] COLONOGRAPHY [facility] Start: 2013 FECAL OCCULT BLOOD FECAL OCCULT BLOO D [facility] Start: 2013 Screening for malign ant neoplasm of colon [facility] Start: 2013 SIGMOIDOSCOPY SIGMOIDOSCOPY [facility] Start: 1987 Hepatitis B Vaccine (1 of 3 - 19+ 3-dose series) Hepatitis B Vaccine (1 of 3 - 19+ 3-dose series) [facility] Start: 1986 Anxiety Screening Anxiety Screening [facility] Start: 1986 Depression Screening Depression Scre ening [facility] Start: 1968 HEPATITIS B (1 of 3 - 3-dose series) HEPATITIS B (1 of 3 - 3-dose series) [facility] COVID & INFLUENZA A/ B & RSV PCR, ROUTINE COVID & INFLUENZA A/B & RSV PCR, ROUTINE Microbiology Routine Sinobronchitis Diarrhea, unspecified type Flu-like symptoms Ordered: 07/01/2024 [facility] Work Phone: Comment on above: Ordered: 07/01/2024 End: 08-18-2025 CT Chest WO contrast CT CHEST WO IVCON Radiology Routine Chronic cough 1 Occurrences starting 07/19/2024 until 08/18/2025 [facility] Comment on above: 1 Occurrences starti ng 07/19/2024 until 08/18/2025 End: 09-09-2025 DBT Breast - bilateral screening SARAH SCREENING W RGIO Radiology Routine Encounter for screening mammogram for breast cancer 1 Occurrences starting 08/10/2024 until 09/09/2025 [facility] Work Phone: Comment on above: 1 Occurrences starti ng 08/10/2024 until 09/09/2025 End: 02-17-2026 DBT Breast - bilateral screening SARAH SCREENING W RIGO Radiology Routine Encounter for screening mammogram for breast cancer 1 Occurrences starting 01/18/2025 until 02/17/2026 [facility] Work Phone: Comment on above: 1 Occurrences starti ng 01/18/2025 until 02/17/2026 End: 08-18-2025 LUNG VOLUMES LUNG VOLUMES PFT Routine Chronic cough 1 Occurrences starting 07/19/2024 until 08/18/2025 [facility] Work Phone: Comment on above: 1 Occurrences starti ng 07/19/2024 until 08/18/2025 End: 11-06-2023 SARAH SCREENING SARAH SCREENING Radiology Routine Encounter for screening mammogram for malignant neoplasm of breast 1 Occurrences starting 10/07/2022 until 11/06/2023 [facility] Work Phone: Comment on above: 1 Occurrences starti ng 10/07/2022 until 11/06/2023 End: 10-09-2024 MG Breast Screening SARAH SCREENING Radiology Routine Encounter for screening mammogram for breast cancer 1 Occurrences starting 09/10/2023 until 10/09/2024 [facility] Work Phone: Comment on above: 1 Occurrences starti ng 09/10/2023 until 10/09/2024 Physical performance test/josephine w/reprt ea 15 min PHYSICAL PERFORMANCE TEST Procedures Routine Pulmonary emphysema, unspecified emphysema type (HCC) Hypertension, essential Seizure disorder (HCC) Adjustment disorder with depressed mood Ordered: 10/13/2024 [facility] Work Phone: Comment on above: Ordered: 10/13/2024 Physical performance test/josephine w/reprt ea 15 min PHYSICAL PERFORMANCE TEST Procedures Routine Pulmonary emphysema, unspecified emphysema type (HCC) Hypertension, essential Seizure disorder (HCC) Adjustment disorder with depressed mood Ordered: 10/14/2024 [facility] Work Phone: Comment on above: Ordered: 10/14/2024 End: 10-08-2023 Screening colonoscopy COLONOSCOPY SCREENING Endoscopy Routine Screening for colon cancer 1 Occurrences starting 10/07/2022 until 10/08/2023 [facility] Work Phone: Comment on above: 1 Occurrences starti ng 10/07/2022 until 10/08/2023 End: 12-28-2022 Screening mammography bi 2-view breast inc cad SARAH SCREENING Radiology Routine Encounter for screening mammogram for breast cancer 1 Occurrences starting 11/28/2021 until 12/28/2022 [facility] Work Phone: Comment on above: 1 Occurrences starti ng 11/28/2021 until 12/28/2022 End: 08-18-2025 SPIROMETRY - BASELINE AND POST DILATOR SPIROMETRY - BASELINE AND POST DILATOR PFT Routine Chronic cough 1 Occurrences starting 07/19/2024 until 08/18/2025 [facility] Comment on above: 1 Occurrences starti ng 07/19/2024 until 08/18/2025 End: 07-31-2025 XR Chest PA and Lateral XR CHEST 2V FRONTAL/LAT Radiology Routine Sinobronchitis 1 Occurrences starting 07/01/2024 until 07/31/2025 [facility] Comment on above: 1 Occurrences starti ng 07/01/2024 until 07/31/2025 Immunizations Immunization Date Immunization Notes Care Provider Laci patel 10-07-2022 COVID-19 vaccine, ag e 12+ yr, bivalent (Signature-BIONTFlasma) [place] 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: [facility] 03-01-2021 influenza, injectabl e, quadrivalent, contains preservative Hudson Vidales DO Work Phone: [facility] 03-01-2021 influenza virus vacc ine, unspecified formulation Shobha Redd 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: [facility] 03-31-2020 influenza, injectabl e, quadrivalent, contains preservative Hudson Vidales DO Work Phone: [facility] 07-15-2014 pneumococcal polysaccharide vaccine, 23 valent Hudson Vidales DO Work Phone: [facility] Work Phone: 07-15-2014 tetanus toxoid, redu veena diphtheria toxoid, and acellular pertussis vaccine, adsorbed Hudson Vidales DO Work Phone: [facility] Work Phone: Payers Date Payer Category Payer Medicaid [id number] 2020 Medicaid [employer] [id number] 2020-Present [phone] [address] [place] [address] Medicaid [id number] 2020 Medicaid [id number] Social History Date Type Detail Facility Start: 01-02-1984 End: 06-24-2024 Tobacco smoking status NHIS Smokes tobacco daily [facility] Start: 01-02-1984 History of tobacco use Cigarette Smo ker [facility] Start: 08-13-2021 End: 01-18-2025 Alcohol intake Current non-drinker of alcohol (finding) [facility] Start: 1970 Sex Assigned At Not on file C [facility] Start: 01-01-2019 End: 10-07-2022 Cigarettes smoked current (pack per day) - Reported 1.5 [facility] Work Phone: Start: 01-01-2019 End: 06-24-2024 Tobacco use and exposure Smokeless tobacco non-user [facility] Start: 10-07-2022 Tobacco Comment Is down to a p ack a day over the past 3 months (since July 2022) [facility] Start: 10-07-2022 End: 03-27-2023 Tobacco use panel [facility] Work Phone: Start: 05-03-2012 Adult Depression Screening Assessment 0 [facility] Work Phone: Start: 01-30-2021 End: 03-01-2021 Exposure to SARS-CoV-2 (event) Not sure [facility] Functional Status Date Assessment Result Facility 07-15-2014 Are you deaf, or do you have serious difficulty hearing No 07/15/2014 12:38 PM Nata Valle LPN No [facility] 07-15-2014 Are you blind, or do you have serious difficulty seeing, even when wearing glasses No 07/15/2014 12:38 PM Nata Valle LPN No [facility] 07-15-2014 Do you have serious difficulty walking or climbing stairs No 07/15/2014 12:38 PM Nata Valle LPN No [facility] 07-15-2014 Do you have difficul ty dressing or bathing No 07/15/2014 12:38 PM Nata Valle LPN No [facility] 07-15-2014 Because of a physica l, mental, or emotional condition, do you have difficulty doing errands alone such as visiting a physician's office or shopping No 07/15/2014 12:38 PM Nata Valle LPN No [facility] Mental Status Date Assessment Result Facility 07-15-2014 Because of a physica l, mental, or emotional condition, do you have serious difficulty concentrating, remembering, or making decisions No 07/15/2014 12:38 PM Nata Valle LPN [facility] Clinical Notes 03-01-2021 to 01-18-2025 Bren Hanson PA-C - 01/18/2025 8:56 AM EDTPatient InstructionsTelephone Encounter - Agustina Bates - 01/13/2025 3:45 PM EDTTelephone Encounter - Agustina Bates - 01/13/2025 3:45 PM EDT Note Date & Type Note Facility 01-18-2025 Note HNO ID: [id number] Author: BREN HANSON PA-C Service: ? Author Type: Physician Candles Pourer Type: Progress Notes Filed: 01/18/2025 09:06 Note Text: Recording using [employer] software for draft documentation of the visit was discussed with the patient/authorized equal opportunity representative; all questions welcomed and answered. Patient/authorized equal opportunity representative agreed to proceed 01/18/2025 Disability Paperwork: - Denied temporary total disability due to insufficient work history. - Applying for disability due to asthma and COPD. Follows with pulmonology , appointment 01/07/25 COPD: - Diagnosed with COPD, currently managed by Dr. Mcfadden. Last - Recent pulmonary function tests show moderate COPD. - CT chest revealed evidence of emphysema and small pulmonary nodules. F/u CT in 1 year to monitor per pulmonary - Prescribed Symbicort and albuterol PRN; adherent to Symbicort. - 40 pack-year smoking history; reduced from 2 packs/day to 1 pack/day. - Started on Wellbutrin last week to aid smoking cessation by pulmonary Request Disability-has paperwork-requires functional capacity testing has not had compelted. denies any worsenig symptoms today. Asthma: - History of asthma, contributing to respiratory issues. Epilepsy: - Well-controlled on Tegretol 200 mg. - No recent seizures. Hypertension: - Managed with Norvasc 10 mg. - Recent blood pressure readings have been elevated. denies chest pain, MORALES, leg swelling other than occasional mild improves with elevation STACEY. Hyperlipidemia: - Managed with Zocor. no recent labs Depression: - Marilynn reports some depression sypmtoms the last 2 weeks, several days. no SI - Started on Wellbutrin last week. - Denies interest in counseling. Anxiety: as above Seasonal Allergies: - History of seasonal allergies. Vitamin D Deficiency: - Taking vitamin D3 1,000 IU daily, purchased over the counter. - Takes vitamin D on an empty stomach. Current Outpatient Medications on File Prior to Visit Medication Sig buPROPion SR (WELLBUTRIN SR) 150 mg 12 hr tablet 1 tablet two times a day. Take one twice daily albuterol (PROVENTIL) 2.5 mg /3 mL (0.083 %) nebulizer solution Use 3 mL via nebulizer every 4 hours as needed for wheezing/shortness of breath. carBAMazepine (TEGRETOL) 200 mg tablet Take 1 tablet by mouth two times a day. citalopram (CELEXA) 20 mg tablet Take 1 tablet by mouth once daily. simvastatin (ZOCOR) 40 mg tablet Take 1 tablet by mouth daily at bedtime. amLODIPine (NORVASC) 10 mg tablet Take 1 tablet by mouth once daily. budesonide-formoterol (SYMBICORT) 160-4.5 mcg/actuation inhaler Inhale 2 Puffs as instructed two times a day. albuterol HFA (PROVENTIL HFA, VENTOLIN HFA) 90 mcg/actuation inhaler Inhale 2 Puffs as instructed every 4 hours as needed for wheezing/shortness of breath. albuterol (PROVENTIL) 5 mg/mL nebu Inhale 0.5 mL as instructed one time only for 1 dose. 1 DOSE NOW - BACK OFFICE. PLACE 0.5 ML PER DROPPER AND 2.5 ML OF NORMAL SALINE INTO RESERVOIR. EPINEPHrine (EPIPEN) 0.3 mg/0.3 mL auto-injector Inject at onset of allergic reaction in thigh, okay to repeat with 2nd injection if needed. ibuprofen (MOTRIN) 600 mg tablet Take 1 tablet by mouth every 6 hours as needed for Pain. conjugated estrogens (PREMARIN) vaginal cream Use 0.5 g vaginally two times a week. (Patient not taking: Reported on 01/07/2025) No current facility-administered medications on file prior to visit. PAST MEDICAL HISTORY Diagnosis Date Depression HLD (hyperlipidemia) Hyponatremia Seasonal allergies Unspecified epilepsy without mention of intractable epilepsy (HCC) Epilepsy Unspecified essential hypertension Essential hypertension Allergies: Seasonal Allergies Other: See Comments Constitutional: (+) weight loss, (-) fatigue Respiratory: (+) dyspnea Neurological: (-) seizures Psychiatric: (+) anhedonia, (+) depressed mood, (+) anxiety, Endocrine: (-) heat intolerance, (-) cold intolerance BP 152/83 Pulse 93 Resp 16 Wt 65.4 kg (144 lb 3.2 oz) LMP 08/05/2007 BMI 26.17 kg/m? GENERAL: NAD, alert and oriented. SKIN: Unremarkable, no rash or skin lesions. HEAD: Normocephalic. EYES: PERRLA, EOMI, conjunctiva clear. EARS: External ears normal, canals clear, TM's normal. NOSE/SINUSES: Nares normal. Septum midline. OROPHARYNX: Lips, mucosa, and tongue normal, good dentition. No oral lesions noted. NECK: Supple, no lymphadenopathy, normal thyroid, no carotid bruits. LUNGS: Clear to auscultation bilaterally, no wheezes/rhonchi/rales. HEART: Regular rate and rhythm, no murmurs. No ectopy. EXTREMITIES: Normal, no deformities, no skin discoloration, no edema. NEURO: Awake, alert and oriented x3, Labs: - Vitamin D level: Significantly low with last labs. Tests: - Pulmonary function test: Moderate COPD Imaging: - CT chest: Evidence of emphysema and small pulmonary nodules 1. Encounter for screening mammogra (more content not included)... [facility] 01-18-2025 History of Present illness Narrative Recording using [employer]Tr[employer] software for draft documentation of the visit was discussed with the patient/authorized equal opportunity representative; all questions welcomed and answered. Patient/authorized equal opportunity representative agreed to proceed 01/18/2025 Disability Paperwork: - Denied temporary total disability due to insufficient work history. - Applying for disability due to asthma and COPD. Follows with pulmonology , appointment 01/07/25 COPD: - Diagnosed with COPD, currently managed by Dr. Mcfadden. Last - Recent pulmonary function tests show moderate COPD. - CT chest revealed evidence of emphysema and small pulmonary nodules. F/u CT in 1 year to monitor per pulmonary - Prescribed Symbicort and albuterol PRN; adherent to Symbicort. - 40 pack-year smoking history; reduced from 2 packs/day to 1 pack/day. - Started on Wellbutrin last week to aid smoking cessation by pulmonary Request Disability-has paperwork-requires functional capacity testing has not had compelted. denies any worsenig symptoms today. Asthma: - History of asthma, contributing to respiratory issues. Epilepsy: - Well-controlled on Tegretol 200 mg. - No recent seizures. Hypertension: - Managed with Norvasc 10 mg. - Recent blood pressure readings have been elevated. denies chest pain, MORALES, leg swelling other than occasional mild improves with elevation STACEY. Hyperlipidemia: - Managed with Zocor. no recent labs Depression: - Marilynn reports some depression sypmtoms the last 2 weeks, several days. no SI - Started on Wellbutrin last week. - Denies interest in counseling. Anxiety: as above Seasonal Allergies: - History of seasonal allergies. Vitamin D Deficiency: - Taking vitamin D3 1,000 IU daily, purchased over the counter. - Takes vitamin D on an empty stomach. Current Outpatient Medications on File Prior to Visit Medication Sig buPROPion SR (WELLBUTRIN SR) 150 mg 12 hr tablet 1 tablet two times a day. Take one twice daily albuterol (PROVENTIL) 2.5 mg /3 mL (0.083 %) nebulizer solution Use 3 mL via nebulizer every 4 hours as needed for wheezing/shortness of breath. carBAMazepine (TEGRETOL) 200 mg tablet Take 1 tablet by mouth two times a day. citalopram (CELEXA) 20 mg tablet Take 1 tablet by mouth once daily. simvastatin (ZOCOR) 40 mg tablet Take 1 tablet by mouth daily at bedtime. amLODIPine (NORVASC) 10 mg tablet Take 1 tablet by mouth once daily. budesonide-formoterol (SYMBICORT) 160-4.5 mcg/actuation inhaler Inhale 2 Puffs as instructed two times a day. albuterol HFA (PROVENTIL HFA, VENTOLIN HFA) 90 mcg/actuation inhaler Inhale 2 Puffs as instructed every 4 hours as needed for wheezing/shortness of breath. albuterol (PROVENTIL) 5 mg/mL nebu Inhale 0.5 mL as instructed one time only for 1 dose. 1 DOSE NOW - BACK OFFICE. PLACE 0.5 ML PER DROPPER AND 2.5 ML OF NORMAL SALINE INTO RESERVOIR. EPINEPHrine (EPIPEN) 0.3 mg/0.3 mL auto-injector Inject at onset of allergic reaction in thigh, okay to repeat with 2nd injection if needed. ibuprofen (MOTRIN) 600 mg tablet Take 1 tablet by mouth every 6 hours as needed for Pain. conjugated estrogens (PREMARIN) vaginal cream Use 0.5 g vaginally two times a week. (Patient not taking: Reported on 01/07/2025) No current facility-administered medications on file prior to visit. PAST MEDICAL HISTORY Diagnosis Date Depression HLD (hyperlipidemia) Hyponatremia Seasonal allergies Unspecified epilepsy without mention of intractable epilepsy (HCC) Epilepsy Unspecified essential hypertension Essential hypertension Allergies: Seasonal Allergies Other: See Comments Constitutional: (+) weight loss, (-) fatigue Respiratory: (+) dyspnea Neurological: (-) seizures Psychiatric: (+) anhedonia, (+) depressed mood, (+) anxiety, Endocrine: (-) heat intolerance, (-) cold intolerance BP 152/83 Pulse 93 Resp 16 Wt 65.4 kg (144 lb 3.2 oz) LMP 08/05/2007 BMI 26.17 kg/m GENERAL: NAD, alert and oriented. SKIN: Unremarkable, no rash or skin lesions. HEAD: Normocephalic. EYES: PERRLA, EOMI, conjunctiva clear. EARS: External ears normal, canals clear, TM's normal. NOSE/SINUSES: Nares normal. Septum midline. OROPHARYNX: Lips, mucosa, and tongue normal, good dentition. No oral lesions noted. NECK: Supple, no lymphadenopathy, normal thyroid, no carotid bruits. LUNGS: Clear to auscultation bilaterally, no wheezes/rhonchi/rales. HEART: Regular rate and rhythm, no murmurs. No ectopy. EXTREMITIES: Normal, no deformities, no skin discoloration, no edema. NEURO: Awake, alert and oriented x3, Labs: - Vitamin D level: Significantly low with last labs. Tests: - Pulmonary function test: Moderate COPD Imaging: - CT chest: Evidence of emphysema and small pulmonary nodules 1. Encounter for screening mammogram for breast cancer (Z12.31) - Order placed for screening mammogram. 2. Screening for depression (Z13.31) 3. Encounter for screening examination for other mental health and behavioral disorders (Z13.39) 4. Adjustment disorder with depressed mood (F43.21) - PHQ-2 and LULÚ-2 screening completed; patient reports symptoms of depression and anxiety several days over the past 2 weeks. - Started on Wellbutrin last week by pulmonology; advised to allow time for medication to take effect. - Discussed potential for dose adjustment if symptoms persist; patient declined counseling at this time. 5. Screening for colon cancer (Z12.11) - Patient has not had a colonoscopy; consult to general surgery placed for colonoscopy. - Discussed importance of early detection and intervention. 6. Screening for cervical cancer (Z12.4) recommended annual exam. - Referral to [facility] for follow-up and annual exam. 7. Mixed hyperlipidemia (E78.2) - On Zocor; doing well on current regimen. - Screening labs ordered. 8. Essential hypertension, benign (I10) - Blood pressure elevated today and at recent visits; currently on Norvasc 10 mg daily. - Will repeat BP measurement at end of visit. - May consider adding another antihypertensive if BP remains elevated. Monitor and bring BP readings to next visit. consider adding Lisinopril 10 mg 9. Seizure disorder (HCC) (G40.909) - Well controlled on Tegretol 200 mg; no seizures since last visit. 10. Vitamin D deficiency (E55.9) - Patient taking vitamin D3 1,000 units daily. - Advised to take with a fatty meal to improve absorption. 11. Chronic bronchitis, unspecified chronic bronchitis type (HCC) (J42) 12. Nicotine dependence, cigarettes, uncomplicated (F17.210) - Reviewed Pulmonary notes from Dr. Mcfadden dated 8th regarding moderate COPD on PFTs, emphysema on CT, and small pulmonary nodules. - Repeat CT chest scheduled for July. - On Symbicort and albuterol PRN; advised to continue as prescribed. - Smoking history of 40 pack-years; recently reduced from 2 packs/day to 1 pack/day. - Encouraged further reduction to 0.5 pack/day; discussed potential benefits of Wellbutrin for smoking cessation. - Functional capacity testing required for disability paperwork; provided information for scheduling. consult ordered. The patient indicates understanding of these issues and agrees with the plan. Reviewed red flags and when to seek care sooner. Bren Hanson PA-C 01/18/2025 documented in this encounter [facility] 01-18-2025 Instructions Bren Hanson PA-C - 01/18/2025 8:45 AM EDT - Continue taking Symbicort as prescribed and use your albuterol inhaler as needed for breathing symptoms. - Continue taking Wellbutrin as prescribed by pulmonary ; allow a few weeks for it to take effect, and contact us if your mood or smoking urges do not improve so we can adjust the dose. - Take Vitamin D3 (1,000 IU) once daily with your largest (fatty) meal to improve absorption. - Work on reducing your smoking from one pack per day toward half a pack per day. - Call the number provided to locate and schedule functional capacity testing; bring your disability paperwork to that appointment for completion. consult ordered. - Schedule a screening mammogram as ordered. - Arrange a general surgery consult for a colonoscopy and follow all prep instructions given by the surgery team. - Schedule a yearly gynecology exam with Pap smear through [facility]. - Complete screening lab tests (cholesterol, blood sugar, vitamin D, etc.) as ordered. - Schedule and attend your follow-up appointment with Dr. Vidales s office to review your lab results. documented in this encounter [facility] 01-13-2025 Telephone encounter Note Spoke with patient and scheduled. ,me [facility] 01-13-2025 Miscellaneous Notes Spoke with patient and scheduled. ,me I am happy to take a look, however, I have never seen this patient. Bren Hanson PA-C Type of form: Short-term Disability Form received via fax When form is completed, Fax form to [phone] OR [phone] Form has been forwarded to Physician Desk: Dr. Bren JOY/ Oksana Vazquez LPN documented in this encounter [facility] 01-07-2025 Note HNO ID: [id number] Author: GARDENIA MCFADDEN MD Service: ? Author Type: Physician Type: Progress Notes Filed: 01/07/2025 10:48 Note Text: . Respiratory [place] Note Patient name: Susanna Melton PCP: Hudson Vidales DO CC: COPD HPI: Susanna Melton 54 year old female current [id number] smoker with PMH significant for epilepsy, HTN, hyponatremia, depression, seasonal allergies s/p allergy shots in the past who was recently seen for chronic cough and recurrent bronchitis. Pulmonary function test showed moderate COPD and she had evidence of emphysema on CT of the chest as well as multiple 5 mm nodules. Smoking cessation was strongly encouraged, recommended repeat CT at 1 year, started Symbicort. She presents today for follow-up visit. Laboratory test shows no evidence of eosinophilia and her alpha-1 antitrypsin level is normal. She has found Symbicort to be helpful for her pulmonary symptoms. No dysphonia, sore throat or thrush. She has cut back from 2 packs/day to 1 pack/day and states that she finds complete abstinence difficult as her boyfriend smokes. She had tried Chantix in the past but this resulted in significant palpitations and tremors. Inquiring about use of Wellbutrin. No current cough or mucus production. She has had some increased dyspnea with the humidity and poor air quality. DATA: Labs: Component Ref Range AND Units 4 mo ago Alpha 1 Antitrypsin 90 - 200 mg/dL 189 Component Ref Range AND Units 4 mo ago 4 yr ago 7 yr ago Abs Eosin <0.46 k/uL 0.08 PAST MEDICAL HISTORY Diagnosis Date Depression HLD (hyperlipidemia) Hyponatremia Seasonal allergies Unspecified epilepsy without mention of intractable epilepsy (HCC) Epilepsy Unspecified essential hypertension Essential hypertension ALLERGIES Allergen Reactions Seasonal Allergies Other: See Comments albuterol (PROVENTIL) 2.5 mg /3 mL (0.083 %) nebulizer solution Use 3 mL via nebulizer every 4 hours as needed for wheezing/shortness of breath. carBAMazepine (TEGRETOL) 200 mg tablet Take 1 tablet by mouth two times a day. citalopram (CELEXA) 20 mg tablet Take 1 tablet by mouth once daily. simvastatin (ZOCOR) 40 mg tablet Take 1 tablet by mouth daily at bedtime. amLODIPine (NORVASC) 10 mg tablet Take 1 tablet by mouth once daily. budesonide-formoterol (SYMBICORT) 160-4.5 mcg/actuation inhaler Inhale 2 Puffs as instructed two times a day. albuterol HFA (PROVENTIL HFA, VENTOLIN HFA) 90 mcg/actuation inhaler Inhale 2 Puffs as instructed every 4 hours as needed for wheezing/shortness of breath. albuterol (PROVENTIL) 5 mg/mL nebu Inhale 0.5 mL as instructed one time only for 1 dose. 1 DOSE NOW - BACK OFFICE. PLACE 0.5 ML PER DROPPER AND 2.5 ML OF NORMAL SALINE INTO RESERVOIR. EPINEPHrine (EPIPEN) 0.3 mg/0.3 mL auto-injector Inject at onset of allergic reaction in thigh, okay to repeat with 2nd injection if needed. ibuprofen (MOTRIN) 600 mg tablet Take 1 tablet by mouth every 6 hours as needed for Pain. conjugated estrogens (PREMARIN) vaginal cream Use 0.5 g vaginally two times a week. (Patient not taking: Reported on 01/07/2025) Social History Tobacco Use Smoking status: Every Day Current packs/day: 1.50 Average packs/day: 1.5 packs/day for 41.0 years (61.5 ttl pk-yrs) Types: Cigarettes Start date: 01/02/1984 Smokeless tobacco: Never Tobacco comments: Is down to a pack a day over the past 3 months (since July 2022) Vaping Use Vaping status: Never Used Substance Use Topics Alcohol use: No Drug use: No PMH, Social history, family history and surgical history reviewed and updated in EMR REVIEW OF SYSTEMS: CONSTITUTIONAL: No fevers, chills, nightsweats, unintended weight loss HEENT: Denies frequent or severe heaches, nasal congestion/sinus symptoms, problematic allergy problems. EYES: No diplopia or blurry vision. CARDIOVASCULAR: No chest pain, dyspnea, palpitations, orthopnea, PND, ankle edema. PULM: No dyspnea, unexplained cough. GI: No dysphagia/odynophagia, problematic reflux, constipation, diarrhea, changes in stool habits, hematochezia, melena. : No new urinary complaints, including dysuria, gross hematuria or pyuria. NEURO: No new balance problems, peripheral weakness/paresthesias or numbness of concern. MUSC-SKEL: No new joint pain, swelling, or erythema. PSY: No concerns regarding depression, anxiety or panic. INTEGUMENTARY: No new skin changes (rash, new or changing mole, new growth) PHYSICAL EXAMINATION: BP 160/90 Pulse 110 Resp 20 Wt 144 lb (65.3kg) SpO2 96% LMP 08/05/2007 General Appearance: Age-appropriate female, NAD, smells of tobacco. Skin: Skin color, texture, turgor normal, no suspicious rashes or lesions. Head: Normocephalic, no masses, lesions, tenderness or abnormalities. Eyes: Sclera, conjunctiva normal. Oropharynx: No oral lesions or thrush. Neck: No masses or adenopathy. Lungs: Not labor (more content not included)... [facility] 12-30-2024 Telephone encounter Note I am happy to take a look, however, I have never seen this patient. Bren Hanson PA-C [facility] Work Phone: 12-29-2024 Telephone encounter Note Type of form: Short-term Disability Form received via fax When form is completed, Fax form to [phone] OR [phone] Form has been forwarded to Physician Desk: Dr. Bren JOY/ Oksana Vazquez LPN [facility] 11-15-2024 Telephone encounter Note Agree with below recommendations [facility] Work Phone: 11-15-2024 Miscellaneous Notes Agree with below recommendations Patient calls for moderate SOB worse than her baseline only occurring at night. Albuterol does help but takes about 20 min. Has fan d/t heat and is going to get a cool mist humidifier. Nurse triage recommends go to ED now. Patient reports that she is feeling better today and wants to see if has SOB again tonight. Patient reports if increased SOB happens tonight then she will go to ER. Care advice and red flag symptoms reviewed with verbalized understanding. Patient requests that PCP be notified of SOB as well as going to ER if symptoms continue or worsen. Reason for Disposition [1] MODERATE difficulty breathing (e.g., speaks in phrases, SOB even at rest, pulse 100-120) AND [2] NEW-onset or WORSE than normal Answer Assessment - Initial Assessment Questions 1. RESPIRATORY STATUS: Patient reports that four nights in a row she has woke up out of her sleep and felt increasingly SOB. Patient is doing her nebulizer treatments every 4 hours and reports when these episodes occur it takes about 20 minutes for her breathing to come back down to baseline. 2. ONSET: The last 4 days. 3. PATTERN: Intermittent 4. SEVERITY: - MODERATE: SOB at rest, SOB with minimal exertion and prefers to sit, cannot lie down flat, speaks in phrases, mild retractions, audible wheezing, pulse 100 to 120. 5. RECURRENT SYMPTOM: SOB is ongoing 6. CARDIAC HISTORY: No history of heart attack, angina, bypass surgery, angioplasty. 7. LUNG HISTORY: COPD, Emphysema, Current Smoker, Lung Nodules. 8. CAUSE:Patient is not certain. She reports with the increase in heat she thinks that is contributing. Patient uses a fan and is going to get a cool mist humidifier. 9. OTHER SYMPTOMS: Reports that when it happens she feels a chest tightness not a pain but becomes anxious as well (this feeling subsides when SOB is relieved). No cough, dizziness, fever, runny nose 10. O2 SATURATION MONITOR: Not able 11. : NA 12. TRAVEL: No travel or exposures. Protocols used: Breathing [id number] documented in this encounter [facility] 11-12-2024 Telephone encounter Note Patient calls for moderate SOB worse than her baseline only occurring at night. Albuterol does help but takes about 20 min. Has fan d/t heat and is going to get a cool mist humidifier. Nurse triage recommends go to ED now. Patient reports that she is feeling better today and wants to see if has SOB again tonight. Patient reports if increased SOB happens tonight then she will go to ER. Care advice and red flag symptoms reviewed with verbalized understanding. Patient requests that PCP be notified of SOB as well as going to ER if symptoms continue or worsen. Reason for Disposition [1] MODERATE difficulty breathing (e.g., speaks in phrases, SOB even at rest, pulse 100-120) AND [2] NEW-onset or WORSE than normal Answer Assessment - Initial Assessment Questions 1. RESPIRATORY STATUS: Patient reports that four nights in a row she has woke up out of her sleep and felt increasingly SOB. Patient is doing her nebulizer treatments every 4 hours and reports when these episodes occur it takes about 20 minutes for her breathing to come back down to baseline. 2. ONSET: The last 4 days. 3. PATTERN: Intermittent 4. SEVERITY: - MODERATE: SOB at rest, SOB with minimal exertion and prefers to sit, cannot lie down flat, speaks in phrases, mild retractions, audible wheezing, pulse 100 to 120. 5. RECURRENT SYMPTOM: SOB is ongoing 6. CARDIAC HISTORY: No history of heart attack, angina, bypass surgery, angioplasty. 7. LUNG HISTORY: COPD, Emphysema, Current Smoker, Lung Nodules. 8. CAUSE:Patient is not certain. She reports with the increase in heat she thinks that is contributing. Patient uses a fan and is going to get a cool mist humidifier. 9. OTHER SYMPTOMS: Reports that when it happens she feels a chest tightness not a pain but becomes anxious as well (this feeling subsides when SOB is relieved). No cough, dizziness, fever, runny nose 10. O2 SATURATION MONITOR: Not able 11. : NA 12. TRAVEL: No travel or exposures. Protocols used: Breathing [id number] [facility] 10-15-2024 Telephone encounter Note I didn't order this testing Please clarify Hudson Vidales DO [facility] 10-15-2024 Miscellaneous Notes I didn't order this testing Please clarify Hudson Vidales DO I checked with Nash Kulkarni on this. Here is his answer. I'st attempt. LV with phone number [phone] We do NOT do functional capacity evaluations here in [place]. The best thing to do is for the provider to order a functional capacity evaluation and have the patient call the call center [phone] and they can help the patient find the best location for them. The provider must select Functional Capacity Evaluation in the drop down when placing the PT order. The patient will not get scheduled correctly if the FCE is not ordered correctly. Annette Phillips Note documented in this encounter [facility] 10-15-2024 Telephone encounter Note I checked with Nash Kulkarni on this. Here is his answer. I'st attempt. LVM with phone number [phone] We do NOT do functional capacity evaluations here in [place]. The best thing to do is for the provider to order a functional capacity evaluation and have the patient call the call center [phone] and they can help the patient find the best location for them. The provider must select Functional Capacity Evaluation in the drop down when placing the PT order. The patient will not get scheduled correctly if the FCE is not ordered correctly. Annette Phillips Note [facility] 10-14-2024 Telephone encounter Note I placed an order for the FCE to OT/PT, hopefully it is in how they wanted. Please contact the patient to give her the following information that was provided. We do NOT do functional capacity evaluations here in [place]. The best thing to do is for the provider to order a functional capacity evaluation and have the patient call the call center [phone] and they can help the patient find the best location for them. Thank you [facility] Work Phone: 10-14-2024 Miscellaneous Notes I placed an order for the FCE to OT/PT, hopefully it is in how they wanted. Please contact the patient to give her the following information that was provided. We do NOT do functional capacity evaluations here in [place]. The best thing to do is for the provider to order a functional capacity evaluation and have the patient call the call center [phone] and they can help the patient find the best location for them. Thank you documented in this encounter [facility] 10-14-2024 Telephone encounter Note I checked with Nash Kulkarni on this. Here is his answer. I'st attempt. [facility] with phone number [phone] We do NOT do functional capacity evaluations here in [place]. The best thing to do is for the provider to order a functional capacity evaluation and have the patient call the call center [phone] and they can help the patient find the best location for them. The provider must select Functional Capacity Evaluation in the drop down when placing the PT order. The patient will not get scheduled correctly if the FCE is not ordered correctly. Annette Phillips [facility] Work Phone: 10-14-2024 Miscellaneous Notes I checked with Nash Kulkarni on this. Here is his answer. I'st attempt. [facility] with phone number [phone] We do NOT do functional capacity evaluations here in [place]. The best thing to do is for the provider to order a functional capacity evaluation and have the patient call the call center [phone] and they can help the patient find the best location for them. The provider must select Functional Capacity Evaluation in the drop down when placing the PT order. The patient will not get scheduled correctly if the FCE is not ordered correctly. Annette Phillips Please schedule physical performance test. Debbie Liriano MA I have received disability paperwork. However, for this to be completed she needs to have functional capacity testing completed. Please assist her to schedule this. The paperwork for this is in the inbox in my office-however I will be out of the office for the next 2-3 months so this may need evaluated and possibly completed by someone else. Floyd Beach APRN.CNP documented in this encounter [facility] 10-14-2024 Telephone encounter Note Please schedule physical performance test. Debbie Liriano MA [facility] 10-13-2024 Telephone encounter Note I have received disability paperwork. However, for this to be completed she needs to have functional capacity testing completed. Please assist her to schedule this. The paperwork for this is in the inbox in my office-however I will be out of the office for the next 2-3 months so this may need evaluated and possibly completed by someone else. Floyd Beach APRN.CNP [facility] 08-23-2024 Telephone encounter Note Prescription Refill Information The patient has been identified by name and date of : Yes Caregiver verified no other encounters exist for this prescription request: Yes Caregiver confirmed with patient/requestor that no other refills are due, in the near future, with this provider at this time: Yes The last office visit in the department: 07/01/2024 Does the patient have a future office visit with this provider/department: No Requested Prescriptions Pending Prescriptions Disp Refills carBAMazepine (TEGRETOL) 200 mg tablet 180 tablet 3 Sig: Take 1 tablet by mouth two times a day. citalopram (CELEXA) 20 mg tablet 90 tablet 3 Sig: Take 1 tablet by mouth once daily. simvastatin (ZOCOR) 40 mg tablet 90 tablet 3 Sig: Take 1 tablet by mouth daily at bedtime. amLODIPine (NORVASC) 10 mg tablet 90 tablet 3 Sig: Take 1 tablet by mouth once daily. Susanna Brown August 23, 2024 1:43 PM [facility] 08-23-2024 Miscellaneous Notes Prescription Refill Information The patient has been identified by name and date of : Yes Caregiver verified no other encounters exist for this prescription request: Yes Caregiver confirmed with patient/requestor that no other refills are due, in the near future, with this provider at this time: Yes The last office visit in the department: 07/01/2024 Does the patient have a future office visit with this provider/department: No Requested Prescriptions Pending Prescriptions Disp Refills carBAMazepine (TEGRETOL) 200 mg tablet 180 tablet 3 Sig: Take 1 tablet by mouth two times a day. citalopram (CELEXA) 20 mg tablet 90 tablet 3 Sig: Take 1 tablet by mouth once daily. simvastatin (ZOCOR) 40 mg tablet 90 tablet 3 Sig: Take 1 tablet by mouth daily at bedtime. amLODIPine (NORVASC) 10 mg tablet 90 tablet 3 Sig: Take 1 tablet by mouth once daily. Susanna Brown August 23, 2024 1:43 PM documented in this encounter [facility] 08-13-2024 History of Present illness Narrative Images from the original note were not included. . [facility] [place] Note Patient name: Susanna Melton PCP: Hudson Vidales DO Referring Physician: Shobha Redd CNP Consultation requested by Shobha Redd for an opinion regarding cough, bronchitis. My final recommendations will be communicated back to the requesting physician by way of shared Medical record or letter to requesting physician via US mail. CC: Cough HPI: Susanna Melton 54 year old female current 40 pack year smoker with PMH significant for epilepsy, HTN, hyponatremia, depression being seen for cough and recurrent bronchitis. She has no history of asthma although she does have a history of allergies. Allergy seasons are summer and fall. She has been tested in the past and actually received allergy shots for 5 years ago but they were discontinued due to lack of efficacy. She states that she usually has sinusitis with bronchitis every winter. When she is ill she will have significant chest congestion, wheezing, chest tightness and shortness of breath. She usually receives antibiotics and steroids. She has albuterol inhaler to use as needed but states she only uses it when she is ill with her bronchitis. After this last bout of sinusitis with bronchitis, she has had some persistent dry cough, shortness of breath but no wheezing. She has been short of breath when climbing stairs or hurrying but had noticed some baseline shortness of breath approximately 6 months ago. Albuterol does help. No nocturnal awakenings. DATA: PFT 07/2024: Review pulmonary function test show moderate obstruction with some improvement in her small airways postbronchodilator, lung volumes show air trapping. Labs: Normal CBC Imaging / Diagnostic Studies: DATE OF EXAM: Aug 04 2024 11:35AM [facility] 0541 - CT CHEST WO IVCON / PROCEDURE REASON: Chronic cough Comparison: Chest radiograph dated 07/15/2024 RESULT: Limitations: None. Lines, tubes, and devices: None. Lung parenchyma and airways: Atelectasis is seen within the lingula and right middle lobe. There is emphysema with mild, diffuse bronchiectasis. There is a partially calcified nodule seen within the left apex, measuring approximately 5 mm (series 5, image #14). Other subcentimeter nodules are also seen. For example, there is an approximately 5 mm subpleural nodule seen within the left lower lobe (series 2, image #127). There is an approximately 5 mm subpleural nodule seen within the right lower lobe (series 5, image 125). There is an approximately 3 mm nodule within the posterior segment right upper lobe (series 5, image #34). Calcified granulomas are also seen within the lungs. There is no pneumothorax or endobronchial lesion. Pleural space: There is no pleural effusion. Lower neck, lymph nodes, and mediastinum: There are no pathologically enlarged axillary, mediastinal, or hilar lymph nodes. Heart, pericardium, and thoracic vessels: Atherosclerotic calcifications are present within the thoracic aorta and coronary arteries. The heart is normal in size. There is no significant pericardial effusion Bones and soft tissues: There is no destructive bony lesion. Mild scoliosis and multilevel degenerative change within the thoracic spine. Vacuum disc phenomena is seen at multiple levels within the thoracic spine. Upper abdomen: Nonspecific wall thickening of the stomach likely relates to underdistention. Nonspecific thickening and nodularity of the adrenal glands, bilaterally, with associated bilateral adrenal adenomas. Incidentally noted are bilateral renal cysts. IMPRESSION: No acute pulmonary process is identified. Emphysema, with mild, diffuse bronchiectasis. Subcentimeter pulmonary nodules, measuring up to 5 mm in size. Sequela of remote granulomatous disease. No agusto lymphadenopathy is seen within the chest. Chest CT shows mild emphysema changes in multiple noncalcified 5 mm pulmonary nodules PAST MEDICAL HISTORY Diagnosis Date Depression HLD (hyperlipidemia) Hyponatremia Seasonal allergies Unspecified epilepsy without mention of intractable epilepsy (HCC) Epilepsy Unspecified essential hypertension Essential hypertension ALLERGIES Allergen Reactions Seasonal Allergies Other: See Comments budesonide-formoterol (SYMBICORT) 160-4.5 mcg/actuation inhaler Inhale 2 Puffs as instructed two times a day. albuterol HFA (PROVENTIL HFA, VENTOLIN HFA) 90 mcg/actuation inhaler Inhale 2 Puffs as instructed every 4 hours as needed for wheezing/shortness of breath. albuterol (PROVENTIL) 2.5 mg /3 mL (0.083 %) nebulizer solution Use 3 mL via nebulizer every 4 hours as needed for wheezing/shortness of breath. albuterol (PROVENTIL) 5 mg/mL nebu Inhale 0.5 mL as instructed one time only for 1 dose. 1 DOSE NOW - BACK OFFICE. PLACE 0.5 ML PER DROPPER AND 2.5 ML OF NORMAL SALINE INTO RESERVOIR. fluticasone (FLONASE) 50 mcg/actuation nasal spray Use 2 Sprays in each nostril once daily. Rinse mouth after use. amLODIPine (NORVASC) 10 mg tablet Take 1 tablet by mouth once daily. carBAMazepine (TEGRETOL) 200 mg tablet Take 1 tablet by mouth two times a day. citalopram (CELEXA) 20 mg tablet Take 1 tablet by mouth once daily. simvastatin (ZOCOR) 40 mg tablet Take 1 tablet by mouth daily at bedtime. EPINEPHrine (EPIPEN) 0.3 mg/0.3 mL auto-injector Inject at onset of allergic reaction in thigh, okay to repeat with 2nd injection if needed. conjugated estrogens (PREMARIN) vaginal cream Use 0.5 g vaginally two times a week. ibuprofen (MOTRIN) 600 mg tablet Take 1 tablet by mouth every 6 hours as needed for Pain. Social History Tobacco Use Smoking status: Every Day Current packs/day: 1.50 Average packs/day: 1.5 packs/day for 40.6 years (60.9 ttl pk-yrs) Types: Cigarettes Start date: 01/02/1984 Smokeless tobacco: Never Tobacco comments: Is down to a pack a day over the past 3 months (since July 2022) Vaping Use Vaping status: Never Used Substance Use Topics Alcohol use: No Drug use: No No occupational exposure history Pets: 4 cats FAMILY HISTORY Problem Relation Age of Onset Hypertension Mother Diabetes Mother Hypertension Father Colon Cancer Maternal Aunt Cancer Maternal Uncle throat, smoker PAST SURGICAL HISTORY Procedure Laterality Date CARPAL TUNNEL Right PAST SURGICAL HISTORY OF Nasal ballooning with ENT PMH, Social history, family history and surgical history reviewed and updated in EMR REVIEW OF SYSTEMS: CONSTITUTIONAL: No fevers, chills, nightsweats, unintended weight loss HEENT: Positive nasal congestion/sinus symptoms, allergy problems. EYES: No visual changes CARDIOVASCULAR: No chest pain, palpitations, edema. PULM: See HPI GI: No dysphagia/odynophagia, problematic reflux MUSC-SKEL: No joint pain, swelling, or erythema. PSY: Anxiety and depression INTEGUMENTARY: No new skin changes, sensitivity, hives, eczema PHYSICAL EXAMINATION: BP 148/96 Pulse 85 Resp 18 Ht 5' 2.24 (1.58m) Wt 160 lb (72.6kg) SpO2 95% LMP 08/05/2007 BMI 29.04 kg/(m^2). General Appearance: Age-appropriate female, NAD. Skin: Skin color, texture, turgor normal, no suspicious rashes or lesions. Head: Normocephalic, no masses, lesions, tenderness or abnormalities. Oropharynx: No oral lesions, erythema or pharyngeal cobblestoning. Neck: No masses or adenopathy. No bruits. Lungs: Not labored, normal to percussion, inspiratory squeak on the right, no crackles Chest wall: Normal configuration. Heart: Regular rate rhythm, no murmur. Extremities: No edema or clubbing. Nicotine stains. Assessment/Plan: 1. Moderate COPD/centrilobular emphysema -Pulmonary function tests show moderate COPD with evidence of emphysema on CT of the chest. -Smoking cessation strongly encouraged -Started Symbicort with continued use of albuterol as needed 2. Seasonal allergies -Allergen avoidance -As needed antihistamine consideration for leukotriene inhibitor based on her symptoms 3. Lung nodules -Multiple 5 mm nodules as she is a smoker -Repeat CT at 1 year. Once she has shown 2-year stability, she will require enrollment in lung cancer screening program 4. Cigarette smoker -Current smoker with sequelae of emphysema -Smoking cessation is strongly encouraged Gardenia Mcfadden MD [facility] [place] documented in this encounter [facility] 08-13-2024 Note HNO ID: [id number] Author: GARDENIA MCFADDEN MD Service: ? Author Type: Physician Type: Progress Notes Filed: 08/13/2024 09:19 Note Text: . [facility] [place] Note Patient name: Susanna Melton PCP: Hudson Vidales DO Referring Physician: Shobha Redd CNP Consultation requested by Shobha Redd for an opinion regarding cough, bronchitis. My final recommendations will be communicated back to the requesting physician by way of shared Medical record or letter to requesting physician via US mail. CC: Cough HPI: Susanna Melton 54 year old female current 40 pack year smoker with PMH significant for epilepsy, HTN, hyponatremia, depression being seen for cough and recurrent bronchitis. She has no history of asthma although she does have a history of allergies. Allergy seasons are summer and fall. She has been tested in the past and actually received allergy shots for 5 years ago but they were discontinued due to lack of efficacy. She states that she usually has sinusitis with bronchitis every winter. When she is ill she will have significant chest congestion, wheezing, chest tightness and shortness of breath. She usually receives antibiotics and steroids. She has albuterol inhaler to use as needed but states she only uses it when she is ill with her bronchitis. After this last bout of sinusitis with bronchitis, she has had some persistent dry cough, shortness of breath but no wheezing. She has been short of breath when climbing stairs or hurrying but had noticed some baseline shortness of breath approximately 6 months ago. Albuterol does help. No nocturnal awakenings. DATA: PFT 07/2024: Review pulmonary function test show moderate obstruction with some improvement in her small airways postbronchodilator, lung volumes show air trapping. Labs: Normal CBC Imaging / Diagnostic Studies: DATE OF EXAM: Aug 04 2024 11:35AM [facility] 0541 - CT CHEST WO IVCON / PROCEDURE REASON: Chronic cough Comparison: Chest radiograph dated 07/15/2024 RESULT: Limitations: None. Lines, tubes, and devices: None. Lung parenchyma and airways: Atelectasis is seen within the lingula and right middle lobe. There is emphysema with mild, diffuse bronchiectasis. There is a partially calcified nodule seen within the left apex, measuring approximately 5 mm (series 5, image #14). Other subcentimeter nodules are also seen. For example, there is an approximately 5 mm subpleural nodule seen within the left lower lobe (series 2, image #127). There is an approximately 5 mm subpleural nodule seen within the right lower lobe (series 5, image 125). There is an approximately 3 mm nodule within the posterior segment right upper lobe (series 5, image #34). Calcified granulomas are also seen within the lungs. There is no pneumothorax or endobronchial lesion. Pleural space: There is no pleural effusion. Lower neck, lymph nodes, and mediastinum: There are no pathologically enlarged axillary, mediastinal, or hilar lymph nodes. Heart, pericardium, and thoracic vessels: Atherosclerotic calcifications are present within the thoracic aorta and coronary arteries. The heart is normal in size. There is no significant pericardial effusion Bones and soft tissues: There is no destructive bony lesion. Mild scoliosis and multilevel degenerative change within the thoracic spine. Vacuum disc phenomena is seen at multiple levels within the thoracic spine. Upper abdomen: Nonspecific wall thickening of the stomach likely relates to underdistention. Nonspecific thickening and nodularity of the adrenal glands, bilaterally, with associated bilateral adrenal adenomas. Incidentally noted are bilateral renal cysts. IMPRESSION: No acute pulmonary process is identified. Emphysema, with mild, diffuse bronchiectasis. Subcentimeter pulmonary nodules, measuring up to 5 mm in size. Sequela of remote granulomatous disease. No agusto lymphadenopathy is seen within the chest. Chest CT shows mild emphysema changes in multiple noncalcified 5 mm pulmonary nodules PAST MEDICAL HISTORY Diagnosis Date Depression HLD (hyperlipidemia) Hyponatremia Seasonal allergies Unspecified epilepsy without mention of intractable epilepsy (HCC) Epilepsy Unspecified essential hypertension Essential hypertension ALLERGIES Allergen Reactions Seasonal Allergies Other: See Comments budesonide-formoterol (SYMBICORT) 160-4.5 mcg/actuation inhaler Inhale 2 Puffs as instructed two times a day. albuterol HFA (PROVENTIL HFA, VENTOLIN HFA) 90 mcg/actuation inhaler Inhale 2 Puffs as instructed every 4 hours as needed for wheezing/shortness of breath. albuterol (PROVENTIL) 2.5 mg /3 mL (0.083 %) nebulizer solution Use 3 mL via nebulizer every 4 hours as needed for wheezing/shortness of breath. albuterol (PROVENTIL) 5 mg/mL nebu Inhale 0.5 mL as instructed one time only for 1 dose. 1 DOSE NOW - BACK OFFICE. (more content not included)... [facility] 08-10-2024 Telephone encounter Note Patient notified of results and provider's instructions. Patient verbalizes understanding. Patient transferred to care information associate to get pulmonology appointment. Agustina Yarbrough RN [facility] 08-10-2024 Miscellaneous Notes Patient notified of results and provider's instructions. Patient verbalizes understanding. Patient transferred to care information associate to get pulmonology appointment. Agustina Yarbrough RN Letter mailed to pt to contact office for recent results. Goldie Dockery MA Left message to return call. 2nd attempt. TC to pt. LM to call office, ask for triage nurse to get results. Dior Davis LPN Please call patient and let her know that: PFT and lung volume testing does show diagnosis of COPD -- likely emphysema. I have placed referral to pulmonology to start on treatment. If not able to get in for awhile, let me know so I can start something. Thank you, Shobha Redd APRN.PROCESS CAMERA OPERATOR documented in this encounter [facility] 08-10-2024 Note Patient Outreach (FA MPWS) SUSANNA MELTON ([id number]) 1970 F Date Time Provider Department 08/10/24 HUDSON VIDALES During your visit today, we recorded the following information about you: Allergies As of Date: 08/10/2024 Noted Allergy Reaction SEASONAL ALLERGIES 11/22/2018 14 - Other: See Comments Date Reviewed: 07/01/2024 Reviewed by: Shobha Redd APRN.PROCESS CAMERA OPERATOR - Fully Assessed Visit Diagnosis:Encounter for screening mammogram for breast cancer [Z12.31] Order(s):[facility] [place] SCREENING [facility] [[id number]] Order #: [id number] FUTURE Prescriptions as of 09/10/2024 - carBAMazepine (TEGRETOL) 200 mg tablet Take 1 tablet by mouth two times a day. - citalopram (CELEXA) 20 mg tablet Take 1 tablet by mouth once daily. - simvastatin (ZOCOR) 40 mg tablet Take 1 tablet by mouth daily at bedtime. - amLODIPine (NORVASC) 10 mg tablet Take 1 tablet by mouth once daily. - budesonide-formoterol (SYMBICORT) 160-4.5 mcg/actuation inhaler Inhale 2 Puffs as instructed two times a day. - albuterol HFA (PROVENTIL HFA, VENTOLIN HFA) 90 mcg/actuation inhaler Inhale 2 Puffs as instructed every 4 hours as needed for wheezing/shortness of breath. - albuterol (PROVENTIL) 2.5 mg /3 mL (0.083 %) nebulizer solution Use 3 mL via nebulizer every 4 hours as needed for wheezing/shortness of breath. - albuterol (PROVENTIL) 5 mg/mL nebu Inhale 0.5 mL as instructed one time only for 1 dose. 1 DOSE NOW - BACK OFFICE. PLACE 0.5 ML PER DROPPER AND 2.5 ML OF NORMAL SALINE INTO RESERVOIR. - fluticasone (FLONASE) 50 mcg/actuation nasal spray Use 2 Sprays in each nostril once daily. Rinse mouth after use. - EPINEPHrine (EPIPEN) 0.3 mg/0.3 mL auto-injector Inject at onset of allergic reaction in thigh, okay to repeat with 2nd injection if needed. - conjugated estrogens (PREMARIN) vaginal cream Use 0.5 g vaginally two times a week. - ibuprofen (MOTRIN) 600 mg tablet Take 1 tablet by mouth every 6 hours as needed for Pain. Problem List As Of Date 08/10/2024 Noted Resolved Seizure disorder (HCC) [G40.909] 04/08/2007 BENIGN HYPERTENSION [I10] 04/08/2007 ADJUSTMENT DISORDER WITH DEPRESSED MOOD [F43.21]04/08/2007 Mixed hyperlipidemia [E78.2] 08/21/2018 Current smoker [F17.200] 08/21/2018 KENDALL III (vulvar intraepithelial neoplasia III) *01/29/2019 Encounter Status:Closed by MARILUZ BACH on 09/10/24 [facility] 08-09-2024 Progress note Formatting of t his note might be different from the original. Letter mailed to pt to contact office for recent results. Goldie Dockery MA [facility] 08-05-2024 Telephone encounter Note This is also in another encounter. Pt been called left message to return call. Will close this since in another encounter. [facility] 08-05-2024 Miscellaneous Notes This is also in another encounter. Pt been called left message to return call. Will close this since in another encounter. Please refer to result follow up from yesterday -- CT chest also confirms dx of COPD/emphysema. Continue as discussed with pulmonology. Thank you, Shobha Redd APRN.PROCESS CAMERA OPERATOR documented in this encounter [facility] 08-05-2024 Telephone encounter Note Left message to return call. 2nd attempt. [facility] 08-05-2024 Telephone encounter Note TC to pt. LM to call office, ask for triage nurse to get results. Dior Davis LPN [facility] 08-05-2024 Telephone encounter Note Please refer to result follow up from yesterday -- CT chest also confirms dx of COPD/emphysema. Continue as discussed with pulmonology. Thank you, Shobha Redd APRN.PROCESS CAMERA OPERATOR [facility] 08-04-2024 Telephone encounter Note Please call patient and let her know that: PFT and lung volume testing does show diagnosis of COPD -- likely emphysema. I have placed referral to pulmonology to start on treatment. If not able to get in for awhile, let me know so I can start something. Thank you, Shobha Redd APRN.PROCESS CAMERA OPERATOR [facility] 08-04-2024 History of Present illness Narrative Radiology Service Progress Note PATIENT NAME: Susanna Melton DATE OF SERVICE: August 04, 2024 TIME: 12:17 PM PATIENT IDENTITY VERIFICATION COMPLETED USING TWO (2) IDENTIFIERS: Name and Date of confirmed by patient verbally. FALL SCREENING: Has the patient had 2 falls in the last year or 1 fall with injury or currently using an Ambulatory Assistive Device (Walker, Cane, Wheelchair, Crutches, etc.)? No PATIENT GENDER DATA: Assigned female at . status: : No status: NO. PATIENT RELEVANT IMPLANT DATA REVIEWED: Not Applicable PATIENT PRESENTS WITH AN IMPLANTABLE OR ATTACHED BUSINESS APPLICATIONS SPECIALIST: No RADIOLOGY DEPARTMENT: CT; Exam(s) Completed: Chest PERIPHERAL IV DATA: Not applicable SIGNED BY: RT Franklyn(Lalo) August 04, 2024 12:17 PM documented in this encounter [facility] 08-04-2024 Note HNO ID: [id number] Author: BIBIANA JAMES RT(Lalo) Service: ? Author Type: Film Or Videotape Editor Type: Progress Notes Filed: 08/04/2024 12:17 Note Text: Radiology Service Progress Note PATIENT NAME: Susanna Melton DATE OF SERVICE: August 04, 2024 TIME: 12:17 PM PATIENT IDENTITY VERIFICATION COMPLETED USING TWO (2) IDENTIFIERS: Name and Date of confirmed by patient verbally. FALL SCREENING: Has the patient had 2 falls in the last year or 1 fall with injury or currently using an Ambulatory Assistive Device (Walker, Cane, Wheelchair, Crutches, etc.)? No PATIENT GENDER DATA: Assigned female at . status: : No status: NO. PATIENT RELEVANT IMPLANT DATA REVIEWED: Not Applicable PATIENT PRESENTS WITH AN IMPLANTABLE OR ATTACHED BUSINESS APPLICATIONS SPECIALIST: No RADIOLOGY DEPARTMENT: CT; Exam(s) Completed: Chest PERIPHERAL IV DATA: Not applicable SIGNED BY: RT Franklyn(Lalo) August 04, 2024 12:17 PM [facility] 08-04-2024 Note HNO ID: [id number] Author: AMBER DAILEY RPFT Service: ? Author Type: Respiratory Therapist Type: Progress Notes Filed: 08/04/2024 10:29 Note Text: PULM FUNCTION: Provider: Gardenia Mcfadden MD Assisting Tech: Amber Dailey, RPFT Spirometry w/BD: 1 LV - Box: 1 [facility] 08-04-2024 History of Present illness Narrative PULM FUNCTION: Provider: Gardenia Mcfadden MD Assisting Tech: Amber Dailey, RPLISSETH Spirometry w/BD: 1 LV - Box: 1 documented in this encounter [facility] 08-03-2024 Telephone encounter Note Last apt 07/01/2024 Patient has been identified by name and date of : Yes Last office visit in this department: 07/01/2024 RX INSTRUCTIONS: Patient aware RX will be sent to pharmacy. No need to notify patient. Patient phones requesting refills as follows: Requested Prescriptions Pending Prescriptions Disp Refills albuterol (PROVENTIL) 2.5 mg /3 mL (0.083 %) nebulizer solution 100 mL 0 Sig: Use 3 mL via nebulizer every 4 hours as needed for wheezing/shortness of breath. Please review and advise. Monie Ramsey [facility] 08-03-2024 Miscellaneous Notes Last apt 07/01/2024 Patient has been identified by name and date of : Yes Last office visit in this department: 07/01/2024 RX INSTRUCTIONS: Patient aware RX will be sent to pharmacy. No need to notify patient. Patient phones requesting refills as follows: Requested Prescriptions Pending Prescriptions Disp Refills albuterol (PROVENTIL) 2.5 mg /3 mL (0.083 %) nebulizer solution 100 mL 0 Sig: Use 3 mL via nebulizer every 4 hours as needed for wheezing/shortness of breath. Please review and advise. Monie Ramsey documented in this encounter [facility] 07-19-2024 Telephone encounter Note Left a message for pt to call the office and ask to speak to a nurse. Transferred to care information associate to get testing scheduled. Jaylene Enamorado LPN [facility] 07-19-2024 Miscellaneous Notes Left a message for pt to call the office and ask to speak to a nurse. Transferred to care information associate to get testing scheduled. Jaylene Enamorado LPN D/t duration of symptoms and no improvement. I would like patient to get PFTs and CT chest --- I am concerned about new onset COPD. Please help to schedule these. Thank you, Shobha Redd APRN.PROCESS CAMERA OPERATOR Pt notified of results and provider message. Pt reports she still has a lot of nasal congestion, coughing (loose), throat is raw (from coughing) and chest feels heavy. Pt reports she is using allergy nasal spray for nasal congestion, rubbing Vicks on chest for cough. Pt reports she doesn't think she has a fever but feels warm sometimes. Terra Guerra LPN Please call patient and let her know that CXR was normal. No signs of pneumonia. See how she is feeling. Thank you, Shobha Redd APRN.PROCESS CAMERA OPERATOR documented in this encounter [facility] 07-19-2024 Telephone encounter Note D/t duration of symptoms and no improvement. I would like patient to get PFTs and CT chest --- I am concerned about new onset COPD. Please help to schedule these. Thank you, Shobha Redd APRN.PROCESS CAMERA OPERATOR [facility] 07-19-2024 Telephone encounter Note Pt notified of results and provider message. Pt reports she still has a lot of nasal congestion, coughing (loose), throat is raw (from coughing) and chest feels heavy. Pt reports she is using allergy nasal spray for nasal congestion, rubbing Vicks on chest for cough. Pt reports she doesn't think she has a fever but feels warm sometimes. Terra Guerra LPN [facility] 07-19-2024 Telephone encounter Note Please call patient and let her know that CXR was normal. No signs of pneumonia. See how she is feeling. Thank you, Shobha Redd APRN.PROCESS CAMERA OPERATOR [facility] 07-15-2024 History of Present illness Narrative Radiology Service Progress Note PATIENT NAME: Susanna Melton DATE OF SERVICE: July 15, 2024 TIME: 12:14 PM PATIENT IDENTITY VERIFICATION COMPLETED USING TWO (2) IDENTIFIERS: Name and Date of confirmed by patient verbally. FALL SCREENING: Has the patient had 2 falls in the last year or 1 fall with injury or currently using an Ambulatory Assistive Device (Walker, Cane, Wheelchair, Crutches, etc.)? No PATIENT GENDER DATA: Assigned female at . status: : No status: NO. PATIENT RELEVANT IMPLANT DATA REVIEWED: Not Applicable PATIENT PRESENTS WITH AN IMPLANTABLE OR ATTACHED BUSINESS APPLICATIONS SPECIALIST: No RADIOLOGY DEPARTMENT: General X-ray: Exam(s) Completed: Chest X-Ray PERIPHERAL IV DATA: Not applicable SIGNED BY: RT Teresita(R) July 15, 2024 12:14 PM documented in this encounter [facility] 07-15-2024 Note HNO ID: [id number] Author: DEISY CABEZAS RT(R) Service: Radiology Author Type: Technologist Type: Progress Notes Filed: 07/15/2024 12:19 Note Text: Radiology Service Progress Note PATIENT NAME: Susanna Melton DATE OF SERVICE: July 15, 2024 TIME: 12:14 PM PATIENT IDENTITY VERIFICATION COMPLETED USING TWO (2) IDENTIFIERS: Name and Date of confirmed by patient verbally. FALL SCREENING: Has the patient had 2 falls in the last year or 1 fall with injury or currently using an Ambulatory Assistive Device (Walker, Cane, Wheelchair, Crutches, etc.)? No PATIENT GENDER DATA: Assigned female at . status: : No status: NO. PATIENT RELEVANT IMPLANT DATA REVIEWED: Not Applicable PATIENT PRESENTS WITH AN IMPLANTABLE OR ATTACHED BUSINESS APPLICATIONS SPECIALIST: No RADIOLOGY DEPARTMENT: General X-ray: Exam(s) Completed: Chest X-Ray PERIPHERAL IV DATA: Not applicable SIGNED BY: RT Teresita(R) July 15, 2024 12:14 PM [facility] 07-08-2024 Telephone encounter Note Noted. Thank you, Shobha Redd APRN.PROCESS CAMERA OPERATOR [facility] 07-08-2024 Miscellaneous Notes Noted. Thank you, Shobha Redd APRN.PROCESS CAMERA OPERATOR Pt called and is notified of providers results and question. Pt voices understanding and states she feels a lot better. She states she has 2-3 pills left, and the breathing machine has helped a lot. Pt reports she is coughing and bringing up a lot of phlegm. Ashlyn Mills RN TC no answer. Left VM to return call. MILDRED Elizalde Please call patient and let her know that she was negative for covid, flu, or RSV. Please see how she is feeling. Thank you, Shobha Redd APRN.PROCESS CAMERA OPERATOR documented in this encounter [facility] 07-08-2024 Telephone encounter Note Pt called and is notified of providers results and question. Pt voices understanding and states she feels a lot better. She states she has 2-3 pills left, and the breathing machine has helped a lot. Pt reports she is coughing and bringing up a lot of phlegm. Ashlyn Mills RN [facility] 07-07-2024 Telephone encounter Note TC no answer. Left VM to return call. MILDRED Elizalde [facility] 07-07-2024 Telephone encounter Note Please call patient and let her know that she was negative for covid, flu, or RSV. Please see how she is feeling. Thank you, Shobha Redd APRN.PROCESS CAMERA OPERATOR [facility] 07-01-2024 Telephone encounter Note Pt called in to see if her Nebulizer solution was called into [facility] in [place]. I told her it was sent in, but it was sent later than the rest of the medication. [facility] 07-01-2024 Miscellaneous Notes Pt called in to see if her Nebulizer solution was called into [facility] in [place]. I told her it was sent in, but it was sent later than the rest of the medication. documented in this encounter [facility] 07-01-2024 Telephone encounter Note The patient has been identified by name and date of : Yes Caregiver verified no other encounters exist for this prescription request: Yes Caregiver confirmed with patient/requestor that no other refills are due, in the near future, with this provider at this time: Yes The last office visit in the department: 07/01/2024 Does the patient have a future office visit with this provider/department: No Visit date not found Requested Prescriptions Pending Prescriptions Disp Refills benzonatate (TESSALON PERLE) 100 mg capsule [Pharmacy Med Name: benzonatate 100 mg capsule] 30 capsule 0 Sig: Take 1 capsule by mouth three times a day as needed. Jaylene Enamorado LPN July 01, 2024 10:12 AM [facility] 07-01-2024 Miscellaneous Notes The patient has been identified by name and date of : Yes Caregiver verified no other encounters exist for this prescription request: Yes Caregiver confirmed with patient/requestor that no other refills are due, in the near future, with this provider at this time: Yes The last office visit in the department: 07/01/2024 Does the patient have a future office visit with this provider/department: No Visit date not found Requested Prescriptions Pending Prescriptions Disp Refills benzonatate (TESSALON PERLE) 100 mg capsule [Pharmacy Med Name: benzonatate 100 mg capsule] 30 capsule 0 Sig: Take 1 capsule by mouth three times a day as needed. Jaylene Enamorado LPN July 01, 2024 10:12 AM documented in this encounter [facility] 07-01-2024 Note HNO ID: [id number] Author: ?, ?, ? Service: ? Author Type: ? Type: Progress Notes Filed: 07/01/2024 10:36 Note Text: Treatment completed at 10:00. O2 sat is 97 % on room air, lung sounds slightly wheezy and improved. Vital signs: BP w/Orthostatic Vitals Date and Time Orthostatic BP Orthostatic Pulse BP Pulse BP Position BP Site BP Cuff Size 07/01/24912 -- -- 120/70 101 Sitting Left Arm Regular Adult Peak Flow Date and Time PF Resp 07/01/24912 -- 14 . Tolerated well. Barbara Vazquez LPN [facility] 07-01-2024 History of Present illness Narrative Treatment completed at 10:00. O2 sat is 97 % on room air, lung sounds slightly wheezy and improved. Vital signs: BP w/Orthostatic Vitals Date and Time Orthostatic BP Orthostatic Pulse BP Pulse BP Position BP Site BP Cuff Size 07/01/24912 -- -- 120/70 101 Sitting Left Arm Regular Adult Peak Flow Date and Time PF Resp 07/01/24912 -- 14 . Tolerated well. Barbara Vazquez LPN Vital signs: BP 120/70 (BP Site: Left Arm, BP Position: Sitting, BP Cuff Size: Regular Adult) Pulse 101 Resp 14 Wt 71.7 kg (158 lb) LMP 08/05/2007 SpO2 97% BMI 27.12 kg/m . albuterol solution aerosol treatment given per doctor's order at 9:52. Prior to treatment, lung sounds wheezing throughout, O2 sat is 97% on room air. Barbara Vazquez LPN Chief Complaint Patient presents with: follow up urgent care cough and sinus: Not feeling any better wok up this am diarrhea HPI Susanna Melton is a 53 year old female who presents here today for Above Complaints.. Marilynn is an established patient of Dr. Flash DO. Concerns today... Express care follow-up- Was seen in express care on 06/24/24 with BENITA Pina for cough and diagnosed with sinobronchitis. Was given rx doxycycline 100mg 1 every day for 7 days, prednisone, and albuterol inhaler. Per note: ASSESSMENT/PLAN: 1. Sinobronchitis - ICD9: 473.9, 490, ICD10: J32.9, J40 - Will begin treatment with Doxycycline -Rx prednisone -Refill albuterol inhaler -Offered chest x-ray, patient declined. She had an x-ray back in April that was normal. She will follow-up with PCP if symptoms are persistent -Did also discuss with patient following up with PCP for possible PFTs/COPD discussion. Patient is a smoker-. She does get bronchitis quite often. - Supportive care with plenty of fluids, rest, and analgesia prn. Today... Patient reports dry and productive cough, SOB, wheezing, congestion, sore throat. Symptoms started on 06/21/24 and was seen in express care on 06/24, and symptoms have not improved. If anything, they are worsening and new symptoms arising. States she had a fever and left side earache that went away yesterday. Had diarrhea that started this morning. Has been taking rx prednisone and doxycycline as prescribed, states this has not improved her symptoms at all. Using albuterol inhaler and this improves symptoms some. Has tried vicks vapor rub which did not help. No known hx of COPD. Reports getting bad illness once per winter that is hard to recover from. Past medical history, appointments, medications, allergies reviewed. Previous Medical History PAST MEDICAL HISTORY Diagnosis Date Depression Hyponatremia Unspecified epilepsy without mention of intractable epilepsy (HCC) Epilepsy Unspecified essential hypertension Essential hypertension Previous Surgical History PAST SURGICAL HISTORY Procedure Laterality Date CARPAL TUNNEL Right PAST SURGICAL HISTORY OF Nasal ballooning with ENT Family History FAMILY HISTORY Problem Relation Age of Onset Hypertension Father Hypertension Mother Diabetes Mother Colon Cancer Maternal Aunt Cancer Maternal Uncle throat, smoker Patient Allergies ALLERGIES Allergen Reactions Seasonal Allergies Other: See Comments Current Medications Current Outpatient Medications on File Prior to Visit Medication Sig albuterol HFA (PROVENTIL HFA, VENTOLIN HFA) 90 mcg/actuation inhaler Inhale 2 Puffs as instructed every 4 hours as needed for wheezing/shortness of breath. doxycycline monohydrate 100 mg tablet Take 1 tablet by mouth two times a day for 7 days. fluticasone (FLONASE) 50 mcg/actuation nasal spray Use 2 Sprays in each nostril once daily. Rinse mouth after use. amLODIPine (NORVASC) 10 mg tablet Take 1 tablet by mouth once daily. carBAMazepine (TEGRETOL) 200 mg tablet Take 1 tablet by mouth two times a day. citalopram (CELEXA) 20 mg tablet Take 1 tablet by mouth once daily. simvastatin (ZOCOR) 40 mg tablet Take 1 tablet by mouth daily at bedtime. EPINEPHrine (EPIPEN) 0.3 mg/0.3 mL auto-injector Inject at onset of allergic reaction in thigh, okay to repeat with 2nd injection if needed. conjugated estrogens (PREMARIN) vaginal cream Use 0.5 g vaginally two times a week. ibuprofen (MOTRIN) 600 mg tablet Take 1 tablet by mouth every 6 hours as needed for Pain. No current facility-administered medications on file prior to visit. Social History Social History Tobacco Use Smoking status: Every Day Current packs/day: 1.50 Average packs/day: 1.5 packs/day for 40.5 years (60.7 ttl pk-yrs) Types: Cigarettes Start date: 01/02/1984 Smokeless tobacco: Never Tobacco comments: Is down to a pack a day over the past 3 months (since July 2022) Vaping Use Vaping status: Never Used Substance Use Topics Alcohol use: No Drug use: No REVIEW OF SYSTEMS: as above Reviewed relevant PMHx, PSHx, Social Hx, current medications and allergies. Review of Symptoms REVIEW OF SYSTEMS See HPI. EXAM: BP 120/70 (BP Site: Left Arm, BP Position: Sitting, BP Cuff Size: Regular Adult) Pulse 101 Resp 14 Wt 71.7 kg (158 lb) LMP 08/05/2007 SpO2 97% BMI 27.12 kg/m Ears: External ears normal, canals clear. Oropharynx: Lips, mucosa, and tongue normal, teeth and gums normal, oropharynx normal and Positive findings: mild oropharyngeal erythema. Lungs: Positive findings: wheezing . Heart: RRR without murmur, gallop, or rubs. No ectopy. Health Maintenance List Depression Screening Never done Anxiety Screening Never done Hepatitis B Vaccine(1 of 3 - 19+ 3-dose series) Never done Colorectal Cancer Screening Never done Pneumococcal Vaccine: 50+(2 of 2 - PCV) due on 07/15/2015 Lung Cancer Screening Never done Shingrix Vaccine(1 of 2) Never done Mammogram Screening due on 08/09/2020 Influenza Vaccine(1) due on 02/01/2024 Covid-19 Vaccine( season) due on 02/01/2024 DTaP,Tdap,Td Vaccine(2 - Td or Tdap) due on 07/15/2024 Cervical Cancer Screening due on 08/09/2024 Annual PCP Team Chronic Disease Visit due on 07/01/2025 BP Controlled (<130/80) due on 07/01/2025 Diabetes Screening due on 10/07/2025 Lipid Screening due on 10/08/2027 Hepatitis C Screening Completed HIV Screening Completed ASSESSMENT/PLAN: 1. Sinobronchitis - ICD9: 473.9, 490, ICD10: J32.9, J40 (primary diagnosis) Needs chest xray d/t not resolving. Switch antibiotic regimen to augmentin BID x 10 days. Medrol dose pack. Albuterol neb treatment given in office with some resolution of symptoms/wheezing. Sent pt home with nebulizer and rx for albuterol solution. Viral swab d/t new GI symptoms -- concern for viral infection on top of ongoing sinobronchitis. - BENZONATATE 100 MG CAPSULE - COVID & INFLUENZA A/B & RSV PCR, ROUTINE - METHYLPREDNISOLONE 4 MG TABLETS IN A DOSE PACK - XR CHEST 2V FRONTAL/LAT - AMOXICILLIN 875 MG-POTASSIUM CLAVULANATE 125 MG TABLET - ALBUTEROL SULFATE CONCENTRATE 5 MG/ML(0.5 %) SOLUTION FOR NEBULIZATION - ALBUTEROL SULFATE CONCENTRATE 2.5 MG/0.5 ML SOLUTION FOR NEBULIZATION - ALBUTEROL SULFATE 2.5 MG/3 ML (0.083 %) SOLUTION FOR NEBULIZATION 2. Diarrhea, unspecified type - ICD9: 787.91, ICD10: R19.7 Viral swab d/t new GI symptoms -- concern for viral infection on top of ongoing sinobronchitis. - COVID & INFLUENZA A/B & RSV PCR, ROUTINE 3. Flu-like symptoms - ICD9: 780.99, ICD10: R68.89 Viral swab d/t new GI symptoms -- concern for viral infection on top of ongoing sinobronchitis. - COVID & INFLUENZA A/B & RSV PCR, ROUTINE RTO as needed. Discussed need for PFTs once healthy and back to baseline (concern for COPD). Pt agreeable. Prescription instructions reviewed with patient as applicable. Potential red flag symptoms discussed with the patient. Reviewed appropriate action plan to take if red flag symptoms occur. Patient agreeable to treatment plan. Shobha Mejía APRN.PROCESS CAMERA OPERATOR [address] [place] [address] documented in this encounter [facility] 07-01-2024 Note HNO ID: [id number] Author: BARBARA VAZQUEZ LPN Service: ? Author Type: LICENSED NURSE Type: Progress Notes Filed: 07/01/2024 10:36 Note Text: Vital signs: BP 120/70 (BP Site: Left Arm, BP Position: Sitting, BP Cuff Size: Regular Adult) Pulse 101 Resp 14 Wt 71.7 kg (158 lb) LMP 08/05/2007 SpO2 97% BMI 27.12 kg/m? . albuterol solution aerosol treatment given per doctor's order at 9:52. Prior to treatment, lung sounds wheezing throughout, O2 sat is 97% on room air. Barbara Vazquez LPN [facility] 07-01-2024 Note HNO ID: [id number] Author: SHOBHA REDD APRN.PROCESS CAMERA OPERATOR Service: ? Author Type: Nurse Practitioner Type: Progress Notes Filed: 07/01/2024 10:36 Note Text: Chief Complaint Patient presents with: follow up urgent care cough and sinus: Not feeling any better wok up this am diarrhea HPI Susanna Melton is a 53 year old female who presents here today for Above Complaints.. Marilynn is an established patient of Dr. Flash DO. Concerns today... Express care follow-up- Was seen in [facility] on 06/24/24 with BENITA Pina for cough and diagnosed with sinobronchitis. Was given rx doxycycline 100mg 1 every day for 7 days, prednisone, and albuterol inhaler. Per note: ASSESSMENT/PLAN: 1. Sinobronchitis - ICD9: 473.9, 490, ICD10: J32.9, J40 - Will begin treatment with Doxycycline -Rx prednisone -Refill albuterol inhaler -Offered chest x-ray, patient declined. She had an x-ray back in April that was normal. She will follow-up with PCP if symptoms are persistent -Did also discuss with patient following up with PCP for possible PFTs/COPD discussion. Patient is a smoker-. She does get bronchitis quite often. - Supportive care with plenty of fluids, rest, and analgesia prn. Today... Patient reports dry and productive cough, SOB, wheezing, congestion, sore throat. Symptoms started on 06/21/24 and was seen in express care on 06/24, and symptoms have not improved. If anything, they are worsening and new symptoms arising. States she had a fever and left side earache that went away yesterday. Had diarrhea that started this morning. Has been taking rx prednisone and doxycycline as prescribed, states this has not improved her symptoms at all. Using albuterol inhaler and this improves symptoms some. Has tried vicks vapor rub which did not help. No known hx of COPD. Reports getting bad illness once per winter that is hard to recover from. Past medical history, appointments, medications, allergies reviewed. Previous Medical History PAST MEDICAL HISTORY Diagnosis Date Depression Hyponatremia Unspecified epilepsy without mention of intractable epilepsy (HCC) Epilepsy Unspecified essential hypertension Essential hypertension Previous Surgical History PAST SURGICAL HISTORY Procedure Laterality Date CARPAL TUNNEL Right PAST SURGICAL HISTORY OF Nasal ballooning with ENT Family History FAMILY HISTORY Problem Relation Age of Onset Hypertension Father Hypertension Mother Diabetes Mother Colon Cancer Maternal Aunt Cancer Maternal Uncle throat, smoker Patient Allergies ALLERGIES Allergen Reactions Seasonal Allergies Other: See Comments Current Medications Current Outpatient Medications on File Prior to Visit Medication Sig albuterol HFA (PROVENTIL HFA, VENTOLIN HFA) 90 mcg/actuation inhaler Inhale 2 Puffs as instructed every 4 hours as needed for wheezing/shortness of breath. doxycycline monohydrate 100 mg tablet Take 1 tablet by mouth two times a day for 7 days. fluticasone (FLONASE) 50 mcg/actuation nasal spray Use 2 Sprays in each nostril once daily. Rinse mouth after use. amLODIPine (NORVASC) 10 mg tablet Take 1 tablet by mouth once daily. carBAMazepine (TEGRETOL) 200 mg tablet Take 1 tablet by mouth two times a day. citalopram (CELEXA) 20 mg tablet Take 1 tablet by mouth once daily. simvastatin (ZOCOR) 40 mg tablet Take 1 tablet by mouth daily at bedtime. EPINEPHrine (EPIPEN) 0.3 mg/0.3 mL auto-injector Inject at onset of allergic reaction in thigh, okay to repeat with 2nd injection if needed. conjugated estrogens (PREMARIN) vaginal cream Use 0.5 g vaginally two times a week. ibuprofen (MOTRIN) 600 mg tablet Take 1 tablet by mouth every 6 hours as needed for Pain. No current facility-administered medications on file prior to visit. Social History Social History Tobacco Use Smoking status: Every Day Current packs/day: 1.50 Average packs/day: 1.5 packs/day for 40.5 years (60.7 ttl pk-yrs) Types: Cigarettes Start date: 01/02/1984 Smokeless tobacco: Never Tobacco comments: Is down to a pack a day over the past 3 months (since July 2022) Vaping Use Vaping status: Never Used Substance Use Topics Alcohol use: No Drug use: No REVIEW OF SYSTEMS: as above Reviewed relevant PMHx, PSHx, Social Hx, current medications and allergies. Review of Symptoms REVIEW OF SYSTEMS See HPI. EXAM: BP 120/70 (BP Site: Left Arm, BP Position: Sitting, BP Cuff Size: Regular Adult) Pulse 101 Resp 14 Wt 71.7 kg (158 lb) LMP 08/05/2007 SpO2 97% BMI 27.12 kg/m? Ears: External ears normal, canals clear. Oropharynx: Lips, mucosa, and tongue normal, teeth and gums normal, oropharynx normal and Positive findings: mild oropharyngeal erythema. Lungs: Positive findings: wheezing . Heart: RRR without murmur, gallop, or rubs. No ectopy. Health Maintenance List Depression Screening Never done Anxiety Screening Never done (more content not included)... [facility] 06-24-2024 Note HNO ID: [id number] Author: CRICKET PÉREZ PA Service: ? Author Type: Physician Candles Pourer Type: Progress Notes Filed: 06/24/2024 12:19 Note Text: This note was created using [employer]. Subjective Susanna Melton is a 53 year old female. HPI 53-year-old female presents for cough, chest congestion, nasal congestion, fevers, chills. Patient states she started getting sick about a week ago. She states she has nasal congestion, sinus pressure, sinus pain. She has cough and chest congestion. She states that she is coughing up some phlegm. No history of COPD or asthma, but is a smoker. She states she has been given an inhaler in the past when she has been sick, but ran out of it. She has been taking DayQuil/NyQuil with some improvement in symptoms. Patient has had some fevers intermittently. No sick contacts that she is aware of. No other complaint PAST MEDICAL HISTORY Diagnosis Date Depression Hyponatremia Unspecified epilepsy without mention of intractable epilepsy (HCC) Epilepsy Unspecified essential hypertension Essential hypertension PAST SURGICAL HISTORY Procedure Laterality Date CARPAL TUNNEL Right PAST SURGICAL HISTORY OF Nasal ballooning with ENT ALLERGIES Seasonal Allergies MEDICATIONS fluticasone (FLONASE) 50 mcg/actuation nasal spray Use 2 Sprays in each nostril once daily. Rinse mouth after use. amLODIPine (NORVASC) 10 mg tablet Take 1 tablet by mouth once daily. citalopram (CELEXA) 20 mg tablet Take 1 tablet by mouth once daily. simvastatin (ZOCOR) 40 mg tablet Take 1 tablet by mouth daily at bedtime. EPINEPHrine (EPIPEN) 0.3 mg/0.3 mL auto-injector Inject at onset of allergic reaction in thigh, okay to repeat with 2nd injection if needed. conjugated estrogens (PREMARIN) vaginal cream Use 0.5 g vaginally two times a week. ibuprofen (MOTRIN) 600 mg tablet Take 1 tablet by mouth every 6 hours as needed for Pain. albuterol HFA (PROVENTIL HFA, VENTOLIN HFA) 90 mcg/actuation inhaler Inhale 2 Puffs as instructed every 4 hours as needed for wheezing/shortness of breath. doxycycline monohydrate 100 mg tablet Take 1 tablet by mouth two times a day for 7 days. predniSONE (DELTASONE) 20 mg tablet Take 2 tablets by mouth once daily for 4 days. Take daily with food. carBAMazepine (TEGRETOL) 200 mg tablet Take 1 tablet by mouth two times a day. FAMILY HISTORY Problem Relation Age of Onset Hypertension Father Hypertension Mother Diabetes Mother Colon Cancer Maternal Aunt Cancer Maternal Uncle throat, smoker Social History Tobacco Use Smoking status: Every Day Current packs/day: 1.50 Average packs/day: 1.5 packs/day for 40.5 years (60.7 ttl pk-yrs) Types: Cigarettes Start date: 01/02/1984 Smokeless tobacco: Never Tobacco comments: Is down to a pack a day over the past 3 months (since July 2022) Vaping Use Vaping status: Never Used Substance Use Topics Alcohol use: No Drug use: No Review of Systems Constitutional: Positive for chills and fever. HENT: Positive for congestion, sinus pressure and sinus pain. Negative for ear pain and sore throat. Respiratory: Positive for cough. Negative for shortness of breath. Cardiovascular: Negative for chest pain. Gastrointestinal: Negative for diarrhea and vomiting. Objective BP 147/85 Pulse 118 Temp 37.6 ?C (99.7 ?F) Resp 24 Wt 73.5 kg (162 lb 0.6 oz) LMP 08/05/2007 SpO2 94% BMI 27.81 kg/m? Physical Exam Vitals and nursing note reviewed. Constitutional: General: She is not in acute distress. Appearance: Normal appearance. She is not toxic-appearing. HENT: Right Ear: Tympanic membrane and ear canal normal. Left Ear: Tympanic membrane and ear canal normal. Nose: Congestion present. Right Sinus: Maxillary sinus tenderness and frontal sinus tenderness present. Left Sinus: Maxillary sinus tenderness and frontal sinus tenderness present. Mouth/Throat: Mouth: Mucous membranes are moist. Eyes: Conjunctiva/sclera: Conjunctivae normal. Cardiovascular: Rate and Rhythm: Normal rate and regular rhythm. Pulmonary: Effort: Pulmonary effort is normal. Breath sounds: Wheezing present. Skin: General: Skin is warm and dry. Neurological: Mental Status: She is alert. Assessment and Plan ASSESSMENT/PLAN: 1. Sinobronchitis - ICD9: 473.9, 490, ICD10: J32.9, J40 - Will begin treatment with Doxycycline -Rx prednisone -Refill albuterol inhaler -Offered chest x-ray, patient declined. She had an x-ray back in April that was normal. She will follow-up with PCP if symptoms are persistent -Did also discuss with patient following up with PCP for possible PFTs/COPD discussion. Patient is a smoker-. She does get bronchitis quite often. - Supportive care with plenty of fluids, rest, and analgesia prn. Diagnosis and treatment plan were discussed and questions were answered to the patient's satisfaction. Pt acknowledged understanding of concepts and follow u (more content not included)... [facility] 06-24-2024 History of Present illness Narrative This note was created using [employer]. Subjective Susanna Melton is a 53 year old female. HPI 53-year-old female presents for cough, chest congestion, nasal congestion, fevers, chills. Patient states she started getting sick about a week ago. She states she has nasal congestion, sinus pressure, sinus pain. She has cough and chest congestion. She states that she is coughing up some phlegm. No history of COPD or asthma, but is a smoker. She states she has been given an inhaler in the past when she has been sick, but ran out of it. She has been taking DayQuil/NyQuil with some improvement in symptoms. Patient has had some fevers intermittently. No sick contacts that she is aware of. No other complaint PAST MEDICAL HISTORY Diagnosis Date Depression Hyponatremia Unspecified epilepsy without mention of intractable epilepsy (HCC) Epilepsy Unspecified essential hypertension Essential hypertension PAST SURGICAL HISTORY Procedure Laterality Date CARPAL TUNNEL Right PAST SURGICAL HISTORY OF Nasal ballooning with ENT ALLERGIES Seasonal Allergies MEDICATIONS fluticasone (FLONASE) 50 mcg/actuation nasal spray Use 2 Sprays in each nostril once daily. Rinse mouth after use. amLODIPine (NORVASC) 10 mg tablet Take 1 tablet by mouth once daily. citalopram (CELEXA) 20 mg tablet Take 1 tablet by mouth once daily. simvastatin (ZOCOR) 40 mg tablet Take 1 tablet by mouth daily at bedtime. EPINEPHrine (EPIPEN) 0.3 mg/0.3 mL auto-injector Inject at onset of allergic reaction in thigh, okay to repeat with 2nd injection if needed. conjugated estrogens (PREMARIN) vaginal cream Use 0.5 g vaginally two times a week. ibuprofen (MOTRIN) 600 mg tablet Take 1 tablet by mouth every 6 hours as needed for Pain. albuterol HFA (PROVENTIL HFA, VENTOLIN HFA) 90 mcg/actuation inhaler Inhale 2 Puffs as instructed every 4 hours as needed for wheezing/shortness of breath. doxycycline monohydrate 100 mg tablet Take 1 tablet by mouth two times a day for 7 days. predniSONE (DELTASONE) 20 mg tablet Take 2 tablets by mouth once daily for 4 days. Take daily with food. carBAMazepine (TEGRETOL) 200 mg tablet Take 1 tablet by mouth two times a day. FAMILY HISTORY Problem Relation Age of Onset Hypertension Father Hypertension Mother Diabetes Mother Colon Cancer Maternal Aunt Cancer Maternal Uncle throat, smoker Social History Tobacco Use Smoking status: Every Day Current packs/day: 1.50 Average packs/day: 1.5 packs/day for 40.5 years (60.7 ttl pk-yrs) Types: Cigarettes Start date: 01/02/1984 Smokeless tobacco: Never Tobacco comments: Is down to a pack a day over the past 3 months (since July 2022) Vaping Use Vaping status: Never Used Substance Use Topics Alcohol use: No Drug use: No Review of Systems Constitutional: Positive for chills and fever. HENT: Positive for congestion, sinus pressure and sinus pain. Negative for ear pain and sore throat. Respiratory: Positive for cough. Negative for shortness of breath. Cardiovascular: Negative for chest pain. Gastrointestinal: Negative for diarrhea and vomiting. Objective BP 147/85 Pulse 118 Temp 37.6 C (99.7 F) Resp 24 Wt 73.5 kg (162 lb 0.6 oz) LMP 08/05/2007 SpO2 94% BMI 27.81 kg/m Physical Exam Vitals and nursing note reviewed. Constitutional: General: She is not in acute distress. Appearance: Normal appearance. She is not toxic-appearing. HENT: Right Ear: Tympanic membrane and ear canal normal. Left Ear: Tympanic membrane and ear canal normal. Nose: Congestion present. Right Sinus: Maxillary sinus tenderness and frontal sinus tenderness present. Left Sinus: Maxillary sinus tenderness and frontal sinus tenderness present. Mouth/Throat: Mouth: Mucous membranes are moist. Eyes: Conjunctiva/sclera: Conjunctivae normal. Cardiovascular: Rate and Rhythm: Normal rate and regular rhythm. Pulmonary: Effort: Pulmonary effort is normal. Breath sounds: Wheezing present. Skin: General: Skin is warm and dry. Neurological: Mental Status: She is alert. Assessment and Plan ASSESSMENT/PLAN: 1. Sinobronchitis - ICD9: 473.9, 490, ICD10: J32.9, J40 - Will begin treatment with Doxycycline -Rx prednisone -Refill albuterol inhaler -Offered chest x-ray, patient declined. She had an x-ray back in April that was normal. She will follow-up with PCP if symptoms are persistent -Did also discuss with patient following up with PCP for possible PFTs/COPD discussion. Patient is a smoker-. She does get bronchitis quite often. - Supportive care with plenty of fluids, rest, and analgesia prn. Diagnosis and treatment plan were discussed and questions were answered to the patient's satisfaction. Pt acknowledged understanding of concepts and follow up plan. Specific signs and symptoms that would indicate the need for higher level of care were discussed in detail warranting prompt ER evaluation. BENITA Burrell documented in this encounter [facility] 01-02-2024 Telephone encounter Note The patient has been identified by name and date of : Yes Caregiver verified no other encounters exist for this prescription request: Yes Caregiver confirmed with patient/requestor that no other refills are due, in the near future, with this provider at this time: Yes The last office visit in the department: 04/04/2023 Does the patient have a future office visit with this provider/department: No Requested Prescriptions Pending Prescriptions Disp Refills fluticasone (FLONASE) 50 mcg/actuation nasal spray 15.8 mL 5 Sig: Use 2 Sprays in each nostril once daily. Rinse mouth after use. Agustina Yarbrough RN January 02, 2024 5:00 PM [facility] 01-02-2024 Miscellaneous Notes The patient has been identified by name and date of : Yes Caregiver verified no other encounters exist for this prescription request: Yes Caregiver confirmed with patient/requestor that no other refills are due, in the near future, with this provider at this time: Yes The last office visit in the department: 04/04/2023 Does the patient have a future office visit with this provider/department: No Requested Prescriptions Pending Prescriptions Disp Refills fluticasone (FLONASE) 50 mcg/actuation nasal spray 15.8 mL 5 Sig: Use 2 Sprays in each nostril once daily. Rinse mouth after use. Agustina Yarbrough RN January 02, 2024 5:00 PM documented in this encounter [facility] 04-04-2023 History of Present illness Narrative Patient visit performed while computer system was down so there was limited chart history to refer to. Charting completed after. Chief Complaint Patient presents with: Sinus Problem HPI Susanna Melton is a 52 year old female who presents here today for Above Complaints.. Susanna is an established patient of Dr. Flash Do. She is a new patient to me today. Concerns today.. Express care follow-up-- Express care visit on 03/27/23 d/t cough, congestion, and sinus pressure. Was given 7 days of doxycycline BID , medrol dose pack, and albuterol inhaler. Dx with sinobronchitis. Today.. Pt reports symptoms were improving but now antibiotic is done and symptoms still persist. Feels mucous was being broken up with antibiotic and started to be removed but needing more. Wheezing, cough, sinus pressure, and congestion x 3-4 weeks now. Pt is a smoker. No relief with OTC mucinex prior to express care visit. Past medical history, appointments, medications, allergies reviewed. Previous Medical History PAST MEDICAL HISTORY Diagnosis Date Depression Hyponatremia Unspecified epilepsy without mention of intractable epilepsy (HCC) Epilepsy Unspecified essential hypertension Essential hypertension Previous Surgical History PAST SURGICAL HISTORY Procedure Laterality Date CARPAL TUNNEL Right PAST SURGICAL HISTORY OF Nasal ballooning with ENT Family History FAMILY HISTORY Problem Relation Age of Onset Hypertension Father Hypertension Mother Diabetes Mother Colon Cancer Maternal Aunt Cancer Maternal Uncle throat, smoker Patient Allergies ALLERGIES Allergen Reactions Seasonal Allergies Other: See Comments Current Medications Current Outpatient Medications on File Prior to Visit Medication Sig albuterol HFA (PROVENTIL HFA, VENTOLIN HFA) 90 mcg/actuation inhaler Inhale 2 Puffs as instructed every 4 hours as needed for wheezing/shortness of breath. EPINEPHrine (EPIPEN) 0.3 mg/0.3 mL auto-injector Inject at onset of allergic reaction in thigh, okay to repeat with 2nd injection if needed. citalopram (CELEXA) 20 mg tablet Take 1 tablet by mouth once daily. conjugated estrogens (PREMARIN) vaginal cream Use 0.5 g vaginally two times a week. simvastatin (ZOCOR) 40 mg tablet Take 1 tablet by mouth daily at bedtime. amLODIPine (NORVASC) 10 mg tablet Take 1 tablet by mouth once daily. carBAMazepine (TEGRETOL) 200 mg tablet Take 1 tablet by mouth twice daily. ibuprofen (MOTRIN) 600 mg tablet Take 1 tablet by mouth every 6 hours as needed for Pain. No current facility-administered medications on file prior to visit. Social History Social History Tobacco Use Smoking status: Every Day Packs/day: 1.50 Years: 35.00 Additional pack years: 0.00 Total pack years: 52.50 Types: Cigarettes Start date: 01/02/1984 Smokeless tobacco: Never Tobacco comments: Is down to a pack a day over the past 3 months (since July 2022) Vaping Use Vaping Use: Never used Substance Use Topics Alcohol use: No Drug use: No REVIEW OF SYSTEMS: as above Reviewed relevant PMHx, PSHx, Social Hx, current medications and allergies. Review of Symptoms REVIEW OF SYSTEMS See HPI. EXAM: BP 116/62 Pulse 92 Temp 37 C (98.6 F) Resp 18 Ht 162.6 cm (5' 4) Wt 72.1 kg (159 lb) LMP 08/05/2007 SpO2 95% BMI 27.29 kg/m General Appearance: Well appearing, alert, in no acute distress, well-hydrated, well nourished.. Skin: Skin color, texture, turgor normal, no suspicious rashes or lesions. Head: Normocephalic, no masses, lesions, tenderness or abnormalities, Facial tenderness. Eyes: Anicteric sclera. Pupils are equally round and reactive to light. Extraocular movements are intact. . Ears: External ears normal, canals clear. Nose/Sinuses: Nares normal, septum midline, mucosa normal, no drainage. + maxillary sinus tenderness. Oropharynx: Lips, mucosa, and tongue normal, teeth and gums normal, oropharynx normal. Lungs: audible wheezing in all lobes. No rhonchi or rales. Heart: RRR without murmur, gallop, or rubs. No ectopy. Health Maintenance List Colorectal Cancer Screening Never done Lung Cancer Screening Never done Mammogram Screening due on 08/09/2020 BP Controlled (<130/80) due on 03/01/2022 Influenza Vaccine(1) due on 01/31/2023 Covid-19 Vaccine(5 - 2022- season) due on 01/31/2023 Hepatitis B Vaccine(1 of 3 - 3-dose series) due on 10/08/2023 Shingrix Vaccine(1 of 2) due on 10/08/2023 Pneumococcal Vaccine(2 - PCV) due on 10/08/2023 Annual PCP Team Chronic Disease Visit due on 04/04/2024 DTaP,Tdap,Td Vaccine(2 - Td or Tdap) due on 07/15/2024 Pap Testing due on 08/09/2024 HPV Testing due on 08/09/2024 Diabetes Screening due on 10/07/2025 Lipid Screening due on 10/08/2027 Depression Assessment Completed Hepatitis C Screening Completed HIV Screening Completed ASSESSMENT/PLAN: 1. Acute cough - ICD9: 786.2, ICD10: R05.1 (primary diagnosis) Chest x-ray Extended doxcycyline BID x 5 days Prednisone taper x 9 days Refilled albuterol inhaler Medications were called over to [facility] pharmacy due to computer system down at the time of visit. 2. Sinobronchitis - ICD9: 473.9, 490, ICD10: J32.9, J40 - Will continue treatment with Doxycycline - The patient should also be given OTC decongestants prn, OTC cough and cold meds as needed, warm salt water gargles, throat lozenges and/or OTC throat spray as needed, and nasal saline gtts and suction prn for the first 5-7 days of treatment. - Supportive care with plenty of fluids, rest, and analgesia prn. - Follow up in 3-5 days if symptoms persist or worsen. 3. Wheezing - ICD9: 786.07, ICD10: R06.2 See above plan in #1 RTO as needed if symptoms do not improve. Prescription instructions reviewed with patient as applicable. Potential red flag symptoms discussed with the patient. Reviewed appropriate action plan to take if red flag symptoms occur. Patient agreeable to treatment plan. Shobha Redd APRN.PROCESS CAMERA OPERATOR [address] [place] [address] documented in this encounter [facility] 04-04-2023 History of Present illness Narrative Radiology Service Progress Note PATIENT NAME: Susanna Melton DATE OF SERVICE: April 04, 2023 TIME: 3:14 PM PATIENT IDENTITY VERIFICATION COMPLETED USING TWO (2) IDENTIFIERS: Name and Date of confirmed by patient verbally. FALL SCREENING: Has the patient had 2 falls in the last year or 1 fall with injury or currently using an Ambulatory Assistive Device (Walker, Cane, Wheelchair, Crutches, etc.)? No PATIENT GENDER DATA: Female. status: : No status: NO. PATIENT RELEVANT IMPLANT DATA REVIEWED: Yes RADIOLOGY DEPARTMENT: General X-ray: Exam(s) Completed: Chest X-Ray PERIPHERAL IV DATA: Not applicable SIGNED BY: RT Sissy(R) April 04, 2023 3:14 PM documented in this encounter [facility] 12-05-2022 Miscellaneous Notes OK to refill as ordered Fransisco Mobley MD Last Rx: 11/28/21 #15.8 ml w/5 refills. Last OV: 10/07/22 Next OV: None Goldie Dockery Ma Pharmacy verified in [facility] Patient has been identified by name and date of : Yes Patient aware RX will be sent to pharmacy. No need to notify patient. Patient phones for refill(s): Disp Refills Start End fluticasone (FLONASE) 50 mcg/actuation nasal spray 15.8 mL 5 11/28/2021 12/28/2021 Sig: Use 2 Sprays in each nostril once daily. Rinse mouth after use. Sent to pharmacy as: fluticasone (FLONASE) 50 mcg/actuation nasal spray Class: Normal Route: EACH NOSTRIL Date of last office visit : 10/07/2022 Date of next office visit : Visit date not found Last 2 Encounter Wt Readings: Date: Wt: 10/07/2022 79.9 kg (176 lb 3.2 oz) 08/13/2021 86.6 kg (191 lb) Not applicable Please advise. Shanta Ortega Pss documented in this encounter [facility] 10-09-2022 Miscellaneous Notes No Pa needed has to have specific NDC codes ran Faxed info to pharmacy Gardenia Ribera Ma Prior Authorization has been completed online at [employer] for epipen, will await response. [id number] Please keep encounter open until final decision has been received and documented from insurance company. Gardenia Ribera MA documented in this encounter [facility] 10-07-2022 Instructions [place] [email or web address] - 10/07/2022 9:11 AM EDT Images from the original note were not included. Schedule for your lung cancer screening. Schedule for your colonoscopy. Schedule your mammogram. We'll let you know when we get your lab results, regardless or results. Bowel Preparation Instructions for: Golytely, Nulytely, Trilyte or Colyte (polyethylene glycol 3350 and electrolytes) IF YOU DO NOT FOLLOW THESE DIRECTIONS, YOUR COLONOSCOPY WILL BE CANCELLED. Morales Instructions: Your bowel must be empty so that your doctor can clearly view your colon. Follow all of the instructions in this handout EXACTLY as they are written. Do NOT eat any solid food the ENTIRE day before your colonoscopy. Drink only clear liquids. Buy your bowel preparation at least 5 days before your colonoscopy. TRANSPORTATION on the Day of Your Exam A responsible person MUST be present with you at Check In prior to your colonoscopy and REMAIN in the endoscopy area until you are discharged. You are NOT ALLOWED to drive, take a taxi or bus, or leave the Endoscopy Center ALONE. If you do not have a responsible route driver salesperson (family member or friend) with you to take you home, your exam cannot be done with sedation and will be cancelled. Please bring a list of all of your current medications, including any Over-the Counter medications with you. Medications If you take insulin, diabetic medications or blood thinners such as Coumadin (warfarin), Plavix (clopidogrel), Ticlid (ticlopidine hydrochloride), Agrylin (anagrelide), Xarelto (Rivaroxaban), Pradaxa (Dabigatran), Eliquis (Apixaban), and Effient (Prasugrel). You MUST call the doctors who orders those medicines for instructions on altering the dosage before your colonoscopy. All other medications should be taken the day of the exam with a sip of water including ASPIRIN. Five (5) Days Before Your Colonoscopy Do NOT take medicines that stop diarrhea - such as Imodium, Kaopectate, or Pepto Bismol. Do NOT take fiber supplements - such as Metamucil, Citrucel, or Perdiem. Do NOT take products that contain iron - such as multi-vitamins (the label lists what is in the products). Do NOT take Vitamin E. Buy the prescription bowel preparation solution at your local pharmacy or drugstore pharmacy. 05/2019 Bowel Preparation Instructions for: Golytely, Nulytely, Trilyte or Colyte (polyethylene glycol 3350 and electrolytes) Three (3) Days Before Your Colonoscopy Do NOT eat high-fiber foods - such as popcorn, beans, seeds (flax, sunflower, quinoa), multigrain bread, nuts, salad/vegetables, or fresh and dried fruit. One (1) Day Before Your Colonoscopy Only drink clear liquids the ENTIRE DAY before your colonoscopy. Do NOT eat any solid foods. Drink at least 8 ounces of clear liquids every hour after waking up. The clear liquids you can drink include: Clear Liquid (NO RED LIQUIDS) DO NOT DRINK Gatorade, Pedialyte or Powerade Clear broth or bouillon Coffee or tea (no milk or non-dairy creamer) Carbonated and non-carbonated soft drinks Manpreet-Aid or other fruit flavored drinks Strained fruit juices (no pulp) Jell-O, popsicles, hard candy Water Alcohol Milk or non-dairy creamers Noodles or vegetables in soup Juice with pulp Liquid you cannot see through Do not use tobacco/vaping products The bowel preparation solution will be consumed in two parts. Mix the solution the evening before your colonoscopy and refrigerate before drinking. You may add the flavor pack that came with the bowel preparation. Do NOT add ice, sugar or any other flavorings to the solution. Part 1 At 6:00 PM - Evening before your colonoscopy Drink an 8-oz glass of bowel preparation every 10 minutes for a total of 8 glasses. You may continue to drink clear liquids until midnight. Part 2 On the day of your colonoscopy you may drink clear liquids up to (three) 3 hours before your procedure. 4 1/2 hours before your colonoscopy Drink an 8-oz glass of bowel preparation every 10 minutes for a total of 8 glasses. Fifteen (15) minutes later, drink an 8-oz glass of clear liquids every 15 minutes for a total of 2 glasses. You may continue to drink clear liquids up to (three) 3 hours before your exam. 2 05/2019 documented in this encounter [facility] 10-07-2022 History of Present illness Narrative Chief Complaint Patient presents with: Medication Follow-up HPI Susanna Melton is a 52 year old female who presents here today for Above Complaints. Today: Has had a rough 10 months-2 close deaths and dealing with possessions from [id number] is beginning to improve. Current Celexa is working well, it a good dose. Does still smoke-about a pack daily for the past 3 months-down from previous 1.5 packs daily. Currently working on quitting, aunt is as well-so good accountability. Denies SOB or CP. No difficulty swallowing. No urination or bowel concerns. Past medical history, appointments, medications, allergies reviewed. Previous Medical History PAST MEDICAL HISTORY Diagnosis Date Depression Hyponatremia Unspecified epilepsy without mention of intractable epilepsy Epilepsy Unspecified essential hypertension Essential hypertension Previous Surgical History PAST SURGICAL HISTORY Procedure Laterality Date CARPAL TUNNEL Right PAST SURGICAL HISTORY OF Nasal ballooning with ENT Family History FAMILY HISTORY Problem Relation Age of Onset Hypertension Father Hypertension Mother Diabetes Mother Colon Cancer Maternal Aunt Cancer Maternal Uncle throat, smoker Patient Allergies ALLERGIES Allergen Reactions Seasonal Allergies Other: See Comments Current Medications Current Outpatient Medications on File Prior to Visit Medication Sig carBAMazepine (TEGRETOL) 200 mg tablet Take 1 tablet by mouth twice daily. amLODIPine (NORVASC) 10 mg tablet Take 1 tablet by mouth once daily. simvastatin (ZOCOR) 40 mg tablet Take 1 tablet by mouth daily at bedtime. citalopram (CELEXA) 20 mg tablet Take 1 tablet by mouth once daily. conjugated estrogens (PREMARIN) vaginal cream Use 0.5 g vaginally two times a week. EPINEPHrine (EPIPEN) 0.3 mg/0.3 mL auto-injector Inject at onset of allergic reaction in thigh, okay to repeat with 2nd injection if needed. cholecalciferol (VITAMIN D3) 50 mcg (2,000 unit) tablet Take 2,000 Units by mouth once daily. ibuprofen (MOTRIN) 600 mg tablet Take 1 tablet by mouth every 6 hours as needed for Pain. polyethylene glycol 3350 (MIRALAX, GLYCOLAX) 17 gram/dose powder Use as directed for Miralax / Gatorade Bowel Prep Kit (Patient not taking: No sig reported) Gatorade Sports Drink Use as directed for Miralax / Gatorade Bowel Prep Kit (Patient not taking: No sig reported) Bisacodyl (DULCOLAX) 5 mg tab Use as directed for Miralax / Gatorade Bowel Prep Kit (Patient not taking: No sig reported) ibuprofen (MOTRIN) 600 mg tablet Take 1 tablet by mouth every 6 hours as needed for Pain. Take every 6 hours for first three days. Then take every 6 hours as needed. Take with food. (Patient not taking: Reported on 10/07/2022) docusate sodium (COLACE) 100 mg capsule Take 1 capsule by mouth twice daily. (Patient not taking: No sig reported) No current facility-administered medications on file prior to visit. Social History Social History Tobacco Use Smoking status: Every Day Packs/day: 1.50 Years: 35.00 Pack years: 52.50 Types: Cigarettes Start date: 01/02/1984 Smokeless tobacco: Never Vaping Use Vaping Use: Never used Substance Use Topics Alcohol use: No Drug use: No Review of Symptoms REVIEW OF SYSTEMS See HPI, otherwise negative EXAM: BP 138/86 (BP Site: Right Arm, BP Position: Sitting, BP Cuff Size: Regular Adult) Pulse 83 Resp 16 Wt 79.9 kg (176 lb 3.2 oz) LMP 08/05/2007 SpO2 95% BMI 30.24 kg/m General Appearance: Well appearing, alert, in no acute distress, well-hydrated, well nourished. and Obese. Skin: Skin color, texture, turgor normal, no suspicious rashes or lesions. Head: Normocephalic, no masses, lesions, tenderness or abnormalities. Eyes: Anicteric sclera. Pupils are equally round and reactive to light. Extraocular movements are intact. . Ears: External ears normal, canals clear. Nose/Sinuses: Nares normal, septum midline, mucosa normal, no drainage or sinus tenderness. Oropharynx: Lips, mucosa, and tongue normal, teeth and gums normal, oropharynx normal. Neck: Supple, no adenopathy; thyroid symmetric, normal size, no bruits. Back:no pain to palpation of vertebrae, good flexion and extension, good range of motion, no muscle tenderness, motor and sensory appear to be normal Lungs: lung sounds diminished throughout. Heart: RRR without murmur, gallop, or rubs. No ectopy. Extremities: No deformities, edema, skin discoloration, clubbing or cyanosis. Good capillary refill. . Musculoskeletal: No joint swelling, deformity, or tenderness. Peripheral Pulses: Normal. Neurologic: Gait normal. Reflexes normal and symmetric. Sensation grossly intact.. Lymph Nodes: No cervical lymphadenopathy and No supraclavicular lymphadenopathy. Psychiatric: pleasant, cooperative. Health Maintenance List HEPATITIS B(1 of 3 - 3-dose series) Never done COLORECTAL CANCER SCREENING Never done PNEUMOCOCCAL(2 - PCV) due on 07/15/2015 LUNG CANCER SCREENING Never done SHINGRIX VACCINE(1 of 2) Never done MAMMOGRAM due on 08/09/2020 COVID-19 VACCINE(4 - Booster) due on 07/12/2021 BP CONTROLLED (<130/80) due on 03/01/2022 DEPRESSION ASSESSMENT Never done ANNUAL PCP TEAM CHRONIC DISEASE VISIT due on 08/13/2022 INFLUENZA(Season Ended) due on 01/31/2023 DTAP,TDAP,TD(2 - Td or Tdap) due on 07/15/2024 PAP TESTING due on 08/09/2024 HPV TESTING due on 08/09/2024 DIABETES SCREEN due on 08/10/2024 LIPID SCREEN due on 08/10/2026 HEPATITIS C SCREENING Completed HIV SCREENING Completed Data reviewed Previous records, office notes ASSESSMENT/PLAN: 1. Well adult exam - ICD9: V70.0, ICD10: Z00.00 (primary diagnosis) - Counseled on healthy diet and regular exercise - Calcium intake with supplements or by diet of 1000 mg/day for under 50, 2770-4138 mg/day for 50+ - Lung cancer screening recommended - Smoking cessation encouraged; discussed risks to health and quitting strategies. Patient is preparing to quit 2. Adjustment disorder with depressed mood - ICD9: 309.0, ICD10: F43.21 Good dose, refill given. - CITALOPRAM 20 MG TABLET 3. Hyperlipidemia, mixed - ICD9: 272.2, ICD10: E78.2 Labs pending. Refill given. - SIMVASTATIN 40 MG TABLET 4. Hypertension, essential - ICD9: 401.9, ICD10: I10 - suboptimal control - Continue current medication(s) - Recommended regular aerobic exercise. - Recommend home blood pressure monitoring, to bring results in on next visit - Goal of BP <130/80 - Patient counselled on smoking cessation. - AMLODIPINE 10 MG TABLET 5. Tobacco abuse - ICD9: 305.1, ICD10: Z72.0 - Cessation encouraged. - Physiologic and physical aspects of tobacco addiction as well as strategies for quitting were discussed. - Counseling was given focusing on the harmful effects of this addiction especially given the patient's medical condition(s) which will be worsened because of the chemicals in tobacco. 6. Seizure disorder (HCC) - ICD9: 345.90, ICD10: G40.909 Refill given, no recent seizures - CARBAMAZEPINE 200 MG TABLET 7. Screening for colon cancer - ICD9: V76.51, ICD10: Z12.11 - PEG 3350-ELECTROLYTES 236 GRAM-22.74 GRAM-6.74 GRAM-5.86 GRAM SOLUTION - COLONOSCOPY SCREENING 8. Special screening for malignant neoplasms, colon - ICD9: V76.51, ICD10: Z12.11 - PEG 3350-ELECTROLYTES 236 GRAM-22.74 GRAM-6.74 GRAM-5.86 GRAM SOLUTION 9. Encounter for screening for lung cancer - ICD9: V76.0, ICD10: Z12.2 - CONSULT LUNG CANCER SCREENING CLINIC 10. Encounter for screening mammogram for malignant neoplasm of breast - ICD9: V76.12, ICD10: Z12.31 - Set up for mammogram, yearly mammogram recommended - Follow up for annual exam in one year. - SARAH SCREENING 11. Encounter for immunization - ICD9: V03.89, ICD10: Z23 - PFIZER-BIONTECH COVID-19 BIVALENT VACCINE, AGE 12+ YR [place] APRN.CNP documented in this encounter [facility] 10-01-2022 Miscellaneous Notes Detailed VM left on pt's identified voicemail of information below. Jaylene Enamorado LPN Overdue for office visit, labs. 30-day supply sent with no refills. The following approved medication requests have been transmitted electronically. Requested Prescriptions Signed Prescriptions Disp Refills carBAMazepine (TEGRETOL) 200 mg tablet 30 tablet 0 Sig: Take 1 tablet by mouth twice daily. Authorizing Provider: HUDSON VIDALES Ordering User: [place] amLODIPine (NORVASC) 10 mg tablet 30 tablet 0 Sig: Take 1 tablet by mouth once daily. Authorizing Provider: HUDSON VIDALES Ordering User: [place] APRN.CNP [place]--08/13/21 Nov--nothing scheduled Last refill--notvasc--04/29/22 90 with 0 refills Tegretol-- 07/15/22 90 with 0 refills Last labs--08/10/21 Patient has been identified by name and date of : Yes Requested Prescriptions Pending Prescriptions Disp Refills carBAMazepine (TEGRETOL) 200 mg tablet 90 tablet 0 Sig: Take 1 tablet by mouth twice daily. amLODIPine (NORVASC) 10 mg tablet 90 tablet 0 Sig: Take 1 tablet by mouth once daily. RX INSTRUCTIONS: Patient aware RX will be sent to pharmacy. No need to notify patient. Elana Dale Pss documented in this encounter [facility] 07-15-2022 Miscellaneous Notes [place]--03/01/21 Nov-- nothing scheduled Last refill--04/29/22 90 with 0 refills Last labs--08/10/21 Pharmacy verified in Epic Patient has been identified by name and date of : Yes Patient aware RX will be sent to pharmacy. No need to notify patient. Patient phones for refill(s): Requested Prescriptions Pending Prescriptions Disp Refills carBAMazepine (TEGRETOL) 200 mg tablet 90 tablet 0 Sig: Take 1 tablet by mouth twice daily. Date of last office visit : 08/13/2021 Date of next office visit : Visit date not found Last 2 Encounter Wt Readings: Date: Wt: 08/13/2021 86.6 kg (191 lb) 03/01/2021 84.4 kg (186 lb) Not applicable Please advise. Shanta Ortega Pss documented in this encounter [facility] 06-21-2022 Miscellaneous Notes [place]--08/13/21 Nov--nothing scheduled Last refill--12/31/21 90 with 0 refills Last labs--08/10/21 Patient has been identified by name and date of : Yes Requested Prescriptions Pending Prescriptions Disp Refills simvastatin (ZOCOR) 40 mg tablet 90 tablet 0 Sig: Take 1 tablet by mouth daily at bedtime. citalopram (CELEXA) 20 mg tablet 90 tablet 0 Sig: Take 1 tablet by mouth once daily. RX INSTRUCTIONS: Patient aware RX will be sent to pharmacy. No need to notify patient. Nata Santos Pss documented in this encounter [facility] 01-25-2022 Miscellaneous Notes Called pt she states Dr. Vidales has been treating this for past 10 years. Said prior to that was seeing [facility]. Left message to return call. Please reach out to patient and see who initially prescribed the tegretol. I don't see that she has seen neurology or epilepsy any time recently. See if she has someone outside [facility] for this. We don't mind refilling this but I would like to have her follow-up with who started her on this medication occasionally. Thank you, Shobha Mejía APRN.PROCESS CAMERA OPERATOR Last office visit 08/13/2021 No upcoming appointment scheduled Patient has been identified by name and date of : Yes Requested Prescriptions Pending Prescriptions Disp Refills carBAMazepine (TEGRETOL) 200 mg tablet 90 tablet 0 Sig: Take 1 tablet by mouth twice daily. RX INSTRUCTIONS: Patient aware RX will be sent to pharmacy. No need to notify patient. Nata Santos Pss documented in this encounter [facility] 12-31-2021 Miscellaneous Notes Patient has been identified by name and date of : Yes Pending Prescriptions Disp Refills CITALOPRAM 20 MG TABLET 90 tablet 0 Sig: Take 1 tablet by mouth once daily. BASIM: No RX INSTRUCTIONS: Patient aware RX will be sent to pharmacy. No need to notify patient. Diana Enamorado Pss documented in this encounter [facility] 03-01-2021 History of Present illness Narrative Radiology Service Progress Note PATIENT NAME: Susanna Melton DATE OF SERVICE: March 01, 2021 TIME: 2:22 PM PATIENT IDENTITY VERIFICATION COMPLETED USING TWO (2) IDENTIFIERS: Name and Date of confirmed by patient verbally. FALL SCREENING: Has the patient had 2 falls in the last year or 1 fall with injury or currently using an Ambulatory Assistive Device (Walker, Cane, Wheelchair, Crutches, etc.)? No PATIENT GENDER DATA: Female. status: : No status: NO. PATIENT RELEVANT IMPLANT DATA REVIEWED: Yes RADIOLOGY DEPARTMENT: General X-ray: Exam(s) Completed: Chest X-Ray PERIPHERAL IV DATA: Not applicable SIGNED BY: RT Sissy(R) March 01, 2021 2:22 PM documented in this encounter [facility] Evaluation note Diagnosis Encounter for screening mammogram for breast cancer [facility] Adjustment disorder with depressed mood [facility] Diagnosis Seizure disorder (HCC) Unspecified epilepsy without mention of intractable epilepsy [facility] Diagnosis Hyperlipidemia, mixed Mixed hyperlipidemia Adjustment disorder with depressed mood [facility] Diagnosis Seizure disorder (HCC) Unspecified epilepsy without mention of intractable epilepsy documented in this encounter [facility]* Diagnosis Hyperlipidemia, mixed- Primary Mixed hyperlipidemia Seizure disorder (HCC) Unspecified epilepsy without mention of intractable epilepsy Hypertension, essential Unspecified essential hypertension Elevated BUN Other abnormal blood chemistry Screening for thyroid disorder Screening for diabetes mellitus Encounter for vitamin deficiency screening Screening for other and unspecified endocrine, nutritional, metabolic, and immunity disorders [facility] Diagnosis Well adult exam- Primary Routine general medical examination at a health care facility Adjustment disorder with depressed mood Hyperlipidemia, mixed Mixed hyperlipidemia Hypertension, essential Unspecified essential hypertension Tobacco abuse Tobacco use disorder Seizure disorder (HCC) Unspecified epilepsy without mention of intractable epilepsy Screening for colon cancer Special screening for malignant neoplasms, colon Special screening for malignant neoplasms, colon Encounter for screening for lung cancer Encounter for screening mammogram for malignant neoplasm of breast Other screening mammogram Encounter for immunization Need for other specified prophylactic vaccination against single bacterial disease [facility] Diagnosis Acute cough- Primary Sinobronchitis Unspecified sinusitis (chronic) Wheezing [facility] Diagnosis Encounter for screening mammogram for breast cancer [facility] Diagnosis Pre-operative examination- Primary Preoperative examination, unspecified Seizure disorder (HCC) Unspecified epilepsy without mention of intractable epilepsy Essential hypertension, benign Adjustment disorder with depressed mood Mixed hyperlipidemia Current smoker Tobacco use disorder Pre-operative examination- Primary Preoperative examination, unspecified KENDALL III (vulvar intraepithelial neoplasia III) Carcinoma in situ, vulva Seizure disorder (HCC) Unspecified epilepsy without mention of intractable epilepsy Essential hypertension, benign Mixed hyperlipidemia Adjustment disorder with depressed mood Current smoker Tobacco use disorder Tobacco abuse Tobacco use disorder [facility] Diagnosis Pre-operative examination- Primary Preoperative examination, unspecified Seizure disorder (HCC) Unspecified epilepsy without mention of intractable epilepsy Essential hypertension, benign Adjustment disorder with depressed mood Mixed hyperlipidemia Current smoker Tobacco use disorder Pre-operative examination- Primary Preoperative examination, unspecified KENDALL III (vulvar intraepithelial neoplasia III) Carcinoma in situ, vulva Seizure disorder (HCC) Unspecified epilepsy without mention of intractable epilepsy Essential hypertension, benign Mixed hyperlipidemia Adjustment disorder with depressed mood Current smoker Tobacco use disorder Sinobronchitis- Primary Unspecified sinusitis (chronic) [facility] Diagnosis Pre-operative examination- Primary Preoperative examination, unspecified Seizure disorder (HCC) Unspecified epilepsy without mention of intractable epilepsy Essential hypertension, benign Adjustment disorder with depressed mood Mixed hyperlipidemia Current smoker Tobacco use disorder Pre-operative examination- Primary Preoperative examination, unspecified KENDALL III (vulvar intraepithelial neoplasia III) Carcinoma in situ, vulva Seizure disorder (HCC) Unspecified epilepsy without mention of intractable epilepsy Essential hypertension, benign Mixed hyperlipidemia Adjustment disorder with depressed mood Current smoker Tobacco use disorder Sinobronchitis Unspecified sinusitis (chronic) [facility] Diagnosis Pre-operative examination- Primary Preoperative examination, unspecified Seizure disorder (HCC) Unspecified epilepsy without mention of intractable epilepsy Essential hypertension, benign Adjustment disorder with depressed mood Mixed hyperlipidemia Current smoker Tobacco use disorder Pre-operative examination- Primary Preoperative examination, unspecified KENDALL III (vulvar intraepithelial neoplasia III) Carcinoma in situ, vulva Seizure disorder (HCC) Unspecified epilepsy without mention of intractable epilepsy Essential hypertension, benign Mixed hyperlipidemia Adjustment disorder with depressed mood Current smoker Tobacco use disorder Sinobronchitis- Primary Unspecified sinusitis (chronic) Diarrhea, unspecified type Flu-like symptoms Other general symptoms [facility] Diagnosis Pre-operative examination- Primary Preoperative examination, unspecified Seizure disorder (HCC) Unspecified epilepsy without mention of intractable epilepsy Essential hypertension, benign Adjustment disorder with depressed mood Mixed hyperlipidemia Current smoker Tobacco use disorder Pre-operative examination- Primary Preoperative examination, unspecified KENDALL III (vulvar intraepithelial neoplasia III) Carcinoma in situ, vulva Seizure disorder (HCC) Unspecified epilepsy without mention of intractable epilepsy Essential hypertension, benign Mixed hyperlipidemia Adjustment disorder with depressed mood Current smoker Tobacco use disorder Sinobronchitis Unspecified sinusitis (chronic) [facility] Diagnosis Pre-operative examination- Primary Preoperative examination, unspecified Seizure disorder (HCC) Unspecified epilepsy without mention of intractable epilepsy Essential hypertension, benign Adjustment disorder with depressed mood Mixed hyperlipidemia Current smoker Tobacco use disorder Pre-operative examination- Primary Preoperative examination, unspecified KENDALL III (vulvar intraepithelial neoplasia III) Carcinoma in situ, vulva Seizure disorder (HCC) Unspecified epilepsy without mention of intractable epilepsy Essential hypertension, benign Mixed hyperlipidemia Adjustment disorder with depressed mood Current smoker Tobacco use disorder Chronic cough- Primary Cough documented in this encounter [facility] note* Diagnosis Pre-operative examination- Primary Preoperative examination, unspecified Seizure disorder (HCC) Unspecified epilepsy without mention of intractable epilepsy Essential hypertension, benign Adjustment disorder with depressed mood Mixed hyperlipidemia Current smoker Tobacco use disorder Pre-operative examination- Primary Preoperative examination, unspecified KENDALL III (vulvar intraepithelial neoplasia III) Carcinoma in situ, vulva Seizure disorder (HCC) Unspecified epilepsy without mention of intractable epilepsy Essential hypertension, benign Mixed hyperlipidemia Adjustment disorder with depressed mood Current smoker Tobacco use disorder Sinobronchitis Unspecified sinusitis (chronic) documented in this encounter [facility] note* Diagnosis Pre-operative examination- Primary Preoperative examination, unspecified Seizure disorder (HCC) Unspecified epilepsy without mention of intractable epilepsy Essential hypertension, benign Adjustment disorder with depressed mood Mixed hyperlipidemia Current smoker Tobacco use disorder Pre-operative examination- Primary Preoperative examination, unspecified KENDALL III (vulvar intraepithelial neoplasia III) Carcinoma in situ, vulva Seizure disorder (HCC) Unspecified epilepsy without mention of intractable epilepsy Essential hypertension, benign Mixed hyperlipidemia Adjustment disorder with depressed mood Current smoker Tobacco use disorder Chronic cough Cough documented in this encounter [facility] note* Diagnosis Pre-operative examination- Primary Preoperative examination, unspecified Seizure disorder (HCC) Unspecified epilepsy without mention of intractable epilepsy Essential hypertension, benign Adjustment disorder with depressed mood Mixed hyperlipidemia Current smoker Tobacco use disorder Pre-operative examination- Primary Preoperative examination, unspecified KENDALL III (vulvar intraepithelial neoplasia III) Carcinoma in situ, vulva Seizure disorder (HCC) Unspecified epilepsy without mention of intractable epilepsy Essential hypertension, benign Mixed hyperlipidemia Adjustment disorder with depressed mood Current smoker Tobacco use disorder Chronic cough Cough documented in this encounter [facility] note* Diagnosis Pre-operative examination- Primary Preoperative examination, unspecified Seizure disorder (HCC) Unspecified epilepsy without mention of intractable epilepsy Essential hypertension, benign Adjustment disorder with depressed mood Mixed hyperlipidemia Current smoker Tobacco use disorder Pre-operative examination- Primary Preoperative examination, unspecified KENDALL III (vulvar intraepithelial neoplasia III) Carcinoma in situ, vulva Seizure disorder (HCC) Unspecified epilepsy without mention of intractable epilepsy Essential hypertension, benign Mixed hyperlipidemia Adjustment disorder with depressed mood Current smoker Tobacco use disorder Chronic cough- Primary Cough Pulmonary emphysema, unspecified emphysema type (HCC) documented in this encounter [facility] note* Diagnosis Pre-operative examination- Primary Preoperative examination, unspecified Seizure disorder (HCC) Unspecified epilepsy without mention of intractable epilepsy Essential hypertension, benign Adjustment disorder with depressed mood Mixed hyperlipidemia Current smoker Tobacco use disorder Pre-operative examination- Primary Preoperative examination, unspecified KENDALL III (vulvar intraepithelial neoplasia III) Carcinoma in situ, vulva Seizure disorder (HCC) Unspecified epilepsy without mention of intractable epilepsy Essential hypertension, benign Mixed hyperlipidemia Adjustment disorder with depressed mood Current smoker Tobacco use disorder COPD, moderate (HCC)- Primary Chronic airway obstruction, not elsewhere classified Centrilobular emphysema (HCC) Other emphysema Seasonal allergies Allergic rhinitis, cause unspecified Lung nodules Other nonspecific abnormal finding of lung field Cigarette smoker Tobacco use disorder [facility] Diagnosis Pre-operative examination- Primary Preoperative examination, unspecified Seizure disorder (HCC) Unspecified epilepsy without mention of intractable epilepsy Essential hypertension, benign Adjustment disorder with depressed mood Mixed hyperlipidemia Current smoker Tobacco use disorder Pre-operative examination- Primary Preoperative examination, unspecified KENDALL III (vulvar intraepithelial neoplasia III) Carcinoma in situ, vulva Seizure disorder (HCC) Unspecified epilepsy without mention of intractable epilepsy Essential hypertension, benign Mixed hyperlipidemia Adjustment disorder with depressed mood Current smoker Tobacco use disorder Seizure disorder (HCC) Unspecified epilepsy without mention of intractable epilepsy Adjustment disorder with depressed mood Hyperlipidemia, mixed Mixed hyperlipidemia Hypertension, essential Unspecified essential hypertension documented in this encounter [facility] note* Diagnosis Pre-operative examination- Primary Preoperative examination, unspecified Seizure disorder (HCC) Unspecified epilepsy without mention of intractable epilepsy Essential hypertension, benign Adjustment disorder with depressed mood Mixed hyperlipidemia Current smoker Tobacco use disorder Pre-operative examination- Primary Preoperative examination, unspecified KENDALL III (vulvar intraepithelial neoplasia III) Carcinoma in situ, vulva Seizure disorder (HCC) Unspecified epilepsy without mention of intractable epilepsy Essential hypertension, benign Mixed hyperlipidemia Adjustment disorder with depressed mood Current smoker Tobacco use disorder Encounter for screening mammogram for breast cancer [facility] Diagnosis Pre-operative examination- Primary Preoperative examination, unspecified Seizure disorder (HCC) Unspecified epilepsy without mention of intractable epilepsy Essential hypertension, benign Adjustment disorder with depressed mood Mixed hyperlipidemia Current smoker Tobacco use disorder Pre-operative examination- Primary Preoperative examination, unspecified KENDALL III (vulvar intraepithelial neoplasia III) Carcinoma in situ, vulva Seizure disorder (HCC) Unspecified epilepsy without mention of intractable epilepsy Essential hypertension, benign Mixed hyperlipidemia Adjustment disorder with depressed mood Current smoker Tobacco use disorder Pulmonary emphysema, unspecified emphysema type (HCC)- Primary Hypertension, essential Unspecified essential hypertension Seizure disorder (HCC) Unspecified epilepsy without mention of intractable epilepsy Adjustment disorder with depressed mood documented in this encounter [facility] note* Diagnosis Pre-operative examination- Primary Preoperative examination, unspecified Seizure disorder (HCC) Unspecified epilepsy without mention of intractable epilepsy Essential hypertension, benign Adjustment disorder with depressed mood Mixed hyperlipidemia Current smoker Tobacco use disorder Pre-operative examination- Primary Preoperative examination, unspecified KENDALL III (vulvar intraepithelial neoplasia III) Carcinoma in situ, vulva Seizure disorder (HCC) Unspecified epilepsy without mention of intractable epilepsy Essential hypertension, benign Mixed hyperlipidemia Adjustment disorder with depressed mood Current smoker Tobacco use disorder Seasonal allergic rhinitis, unspecified trigger- Primary documented in this encounter [facility] note* Diagnosis Pre-operative examination- Primary Preoperative examination, unspecified Seizure disorder (HCC) Unspecified epilepsy without mention of intractable epilepsy Essential hypertension, benign Adjustment disorder with depressed mood Mixed hyperlipidemia Current smoker Tobacco use disorder Pre-operative examination- Primary Preoperative examination, unspecified KENDALL III (vulvar intraepithelial neoplasia III) Carcinoma in situ, vulva Seizure disorder (HCC) Unspecified epilepsy without mention of intractable epilepsy Essential hypertension, benign Mixed hyperlipidemia Adjustment disorder with depressed mood Current smoker Tobacco use disorder Mixed hyperlipidemia- Primary Encounter for screening mammogram for breast cancer Screening for depression Encounter for screening examination for other mental health and behavioral disorders Screening for colon cancer Special screening for malignant neoplasms, colon Screening for cervical cancer Screening for malignant neoplasm of the cervix Essential hypertension, benign Adjustment disorder with depressed mood Seizure disorder (HCC) Unspecified epilepsy without mention of intractable epilepsy Vitamin D deficiency Unspecified vitamin D deficiency Chronic bronchitis, unspecified chronic bronchitis type (HCC) Nicotine dependence, cigarettes, uncomplicated documented in this encounter [facility] for referral (narrative)* Diagnostic Procedure Only (Routine) - Pending Review Specialty Diagnoses / Procedures Referred By Lev t Referred To Contact [facility] Diagnoses Encounter for screening mammogram for breast cancer Procedures SARAH SCREENING SCREENING MAMMOGRAPHY BI 2-VIEW BREAST INC Hudson Hernandez, DO [address] [place] [address] [facility] [address] [place] [address] Referral ID Status Reason Start Date Expiration Date Visits Requested Visits Authorized [id number] Pending Review Auto-Generat ed Referral 11/28/2021 12/28/2022 1 1 [facility] for referral (narrative)* Diagnostic Procedure Only (Routine) - Pending Review Specialty Diagnoses / Procedures Referred By Lev zaragoza Referred To Contact [facility] Diagnoses Encounter for screening mammogram for malignant neoplasm of breast Procedures SARAH SCREENING SCREENING MAMMOGRAPHY BI 2-VIEW BREAST INC CAD Floyd Beach APRN.PROCESS CAMERA OPERATOR [address] [place] [address] [facility] [address] [place] [address] Referral ID Status Reason Start Date Expiration Date Visits Requested Visits Authorized [id number] Pending Review Auto-Generat ed Referral 10/07/2022 11/06/2023 1 1 * Transition of Care (Routine) - Ref Not Required Specialty Diagnoses / Procedures Referred By Lev zaragoza Referred To Contact Diagnoses Encounter for screening for lung cancer Procedures CONSULT LUNG CANCER SCREENING CLINIC Floyd Beach APRN.PROCESS CAMERA OPERATOR [address] [place] [address] Referral ID Status Reason Start Date Expiration Date Visits Requested Visits Authorized [id number] Ref Not Required PCP Requested Referral 10/07/2022 01/05/2023 1 1 * Outpatient Procedure (Routine) - Pending Review Specialty Diagnoses / Procedures Referred By Lev zaragoza Referred To Contact [facility] Diagnoses Screening for colon cancer Procedures COLONOSCOPY SCREENING COLONOSCOPY FLX DX W/COLLJ SPEC WHEN PFRMD Floyd Beach APRN.PROCESS CAMERA OPERATOR [address] [place] [address] [facility] [place] [address] [place] [address] Referral ID Status Reason Start Date Expiration Date Visits Requested Visits Authorized [id number] Pending Review Auto-Generat ed Referral 10/07/2022 10/08/2023 1 1 * Medication Prior Authorization - Closed Specialty Diagnoses / Procedures Referred By Lev zaragoza Referred To Contact [place] APRN.CNP [address] [place] [address] Referral ID Status Reason Start Date Expiration Date Visits Re quested Visits Authorized [id number] Closed 1 1 [facility] Diagnostic Procedure Only (Routine) - Pending Review Specialty Diagnoses / Procedures Referred By Lev zaragoza Referred To Contact [facility] Diagnoses Encounter for screening mammogram for breast cancer Procedures SARAH SCREENING SCREENING MAMMOGRAPHY BI 2-VIEW BREAST INC CAD Hudson Vidales DO [address] [place] [address] [facility] [address] [place] [address] Referral ID Status Reason Start Date Expiration Date Visits Requested Visits Authorized [id number] Pending Review Auto-Generat ed Referral 09/10/2023 10/09/2024 1 1 [facility] Summary Purpose Family History No Family History Records FoundNo Family History Records Found Advance Directives No Advanced Directives Records FoundDocuments on File Type Date Recorded Patient Varnish Melter Expl anation Advance Directive(s) 03/26/2019 5:56 AM Advance Directive(s) 02/03/2019 10:56 AM Advance Directive(s) 09/03/2018 5:44 AM Documents on File Type Date Recorded Patient Varnish Melter Expl anation Advance Directive(s) 03/26/2019 5:56 AM Advance Directive(s) 02/03/2019 10:56 AM Advance Directive(s) 09/03/2018 5:44 AM Documents on File Type Date Recorded Patient Varnish Melter Expl anation Advance Directive(s) 02/03/2019 10:56 AM Documents on File Type Date Recorded Patient Varnish Melter Expl anation Advance Directive(s) 02/03/2019 10:56 AM Procedure Findings Note HNO ID: [id number] Author: Jeff Camilo Service: Gynecology Author Type: Resident Type: Brief Op Note Filed: 09/03/2018 8:32 AM Note Text: BRIEF OPERATIVE / PROCEDURE NOTE LOG ID: [id number] SURGERY/PROCEDURE DATE: 09/03/2018 INCISION/PROCEDURE START TIME: 8:07 AM INCISION CLOSE/PROCEDURE END TIME: 8:24 AM SURGEON(S)/PROCEDURALIST(S) AND SERVICE DESK TECHNICIAN(S): Surgeon(s) and Role: * Lefty Borja - Primary * Nayana Camilo - Resident - Assisting No Additional Staff SURGERY/PROCEDURE(S): Exam under anesthesia, multiple vulvar biopsies, laser ablation of VIN3 ANESTHESIA: Choice - Anesthesia Consult FINDINGS: Multiple lesions across bilateral labia majora and minora extending into perineum ESTIMATED BLOOD LOSS: 3 mls SPECIMENS: Vulvar biopsies COMPLICATIONS: None PRE-OP/PRE-PROCEDURE DIAGNOSIS: KENDALL III POST-OP/POST-PROCEDURE DIAGNOSIS: KENDALL III (vulvar intraepithelial neoplasia III) [D07.1] SIGNATURE: Nayana Camilo MD PATIENT NAME: Susanna Melton DATE: September 03, 2018 TIME: 8:30 AM (more content not included)... Additional Source Comments INFORMATION SOURCE (unrecogn ized section and content) DATE CREATED AUTHOR 09/12/2018 [facility] DATE CREATED AUTHOR AUTHOR'S ORGANIZ ATION 01/19/2025 [facility] Source Comments (unrecognize d section and content) In the event this informatio n is protected by the Federal Confidentiality of Alcohol and Drug Abuse Patient Records regulations: The Federal rules restrict any use of the information to criminally investigate or prosecute any alcohol or drug abuse patient.[facility] the event this information is protected by the Federal Confidentiality of Alcohol and Drug Abuse Patient Records regulations: The Federal rules restrict any use of the information to criminally investigate or prosecute any alcohol or drug abuse patient.[facility] CenterIn the event this information is protected by the Federal Confidentiality of Alcohol and Drug Abuse Patient Records regulations: The Federal rules restrict any use of the information to criminally investigate or prosecute any alcohol or drug abuse patient.[facility] CenterIn the event this information is protected by the Federal Confidentiality of Alcohol and Drug Abuse Patient Records regulations: The Federal rules restrict any use of the information to criminally investigate or prosecute any alcohol or drug abuse patient.[facility] CenterIn the event this information is protected by the Federal Confidentiality of Alcohol and Drug Abuse Patient Records regulations: The Federal rules restrict any use of the information to criminally investigate or prosecute any alcohol or drug abuse patient.[facility] CenterIn the event this information is protected by the Federal Confidentiality of Alcohol and Drug Abuse Patient Records regulations: The Federal rules restrict any use of the information to criminally investigate or prosecute any alcohol or drug abuse patient.[facility] CenterIn the event this information is protected by the Federal Confidentiality of Alcohol and Drug Abuse Patient Records regulations: The Federal rules restrict any use of the information to criminally investigate or prosecute any alcohol or drug abuse patient.[facility] CenterIn the event this information is protected by the Federal Confidentiality of Alcohol and Drug Abuse Patient Records regulations: The Federal rules restrict any use of the information to criminally investigate or prosecute any alcohol or drug abuse patient.[facility] CenterIn the event this information is protected by the Federal Confidentiality of Alcohol and Drug Abuse Patient Records regulations: The Federal rules restrict any use of the information to criminally investigate or prosecute any alcohol or drug abuse patient.[facility] CenterIn the event this information is protected by the Federal Confidentiality of Alcohol and Drug Abuse Patient Records regulations: The Federal rules restrict any use of the information to criminally investigate or prosecute any alcohol or drug abuse patient.[facility] CenterIn the event this information is protected by the Federal Confidentiality of Alcohol and Drug Abuse Patient Records regulations: The Federal rules restrict any use of the information to criminally investigate or prosecute any alcohol or drug abuse patient.[facility] CenterIn the event this information is protected by the Federal Confidentiality of Alcohol and Drug Abuse Patient Records regulations: The Federal rules restrict any use of the information to criminally investigate or prosecute any alcohol or drug abuse patient.[facility] CenterIn the event this information is protected by the Federal Confidentiality of Alcohol and Drug Abuse Patient Records regulations: The Federal rules restrict any use of the information to criminally investigate or prosecute any alcohol or drug abuse patient.[facility] CenterIn the event this information is protected by the Federal Confidentiality of Alcohol and Drug Abuse Patient Records regulations: The Federal rules restrict any use of the information to criminally investigate or prosecute any alcohol or drug abuse patient.[facility] CenterIn the event this information is protected by the Federal Confidentiality of Alcohol and Drug Abuse Patient Records regulations: The Federal rules restrict any use of the information to criminally investigate or prosecute any alcohol or drug abuse patient.[facility] CenterIn the event this information is protected by the Federal Confidentiality of Alcohol and Drug Abuse Patient Records regulations: The Federal rules restrict any use of the information to criminally investigate or prosecute any alcohol or drug abuse patient.[facility] CenterIn the event this information is protected by the Federal Confidentiality of Alcohol and Drug Abuse Patient Records regulations: The Federal rules restrict any use of the information to criminally investigate or prosecute any alcohol or drug abuse patient.[facility] CenterIn the event this information is protected by the Federal Confidentiality of Alcohol and Drug Abuse Patient Records regulations: The Federal rules restrict any use of the information to criminally investigate or prosecute any alcohol or drug abuse patient.[facility] CenterIn the event this information is protected by the Federal Confidentiality of Alcohol and Drug Abuse Patient Records regulations: The Federal rules restrict any use of the information to criminally investigate or prosecute any alcohol or drug abuse patient.[facility] CenterIn the event this information is protected by the Federal Confidentiality of Alcohol and Drug Abuse Patient Records regulations: The Federal rules restrict any use of the information to criminally investigate or prosecute any alcohol or drug abuse patient.[facility] CenterIn the event this information is protected by the Federal Confidentiality of Alcohol and Drug Abuse Patient Records regulations: The Federal rules restrict any use of the information to criminally investigate or prosecute any alcohol or drug abuse patient.[facility] CenterIn the event this information is protected by the Federal Confidentiality of Alcohol and Drug Abuse Patient Records regulations: The Federal rules restrict any use of the information to criminally investigate or prosecute any alcohol or drug abuse patient.[facility] CenterIn the event this information is protected by the Federal Confidentiality of Alcohol and Drug Abuse Patient Records regulations: The Federal rules restrict any use of the information to criminally investigate or prosecute any alcohol or drug abuse patient.[facility] CenterIn the event this information is protected by the Federal Confidentiality of Alcohol and Drug Abuse Patient Records regulations: The Federal rules restrict any use of the information to criminally investigate or prosecute any alcohol or drug abuse patient.[facility] CenterIn the event this information is protected by the Federal Confidentiality of Alcohol and Drug Abuse Patient Records regulations: The Federal rules restrict any use of the information to criminally investigate or prosecute any alcohol or drug abuse patient.[facility] CenterIn the event this information is protected by the Federal Confidentiality of Alcohol and Drug Abuse Patient Records regulations: The Federal rules restrict any use of the information to criminally investigate or prosecute any alcohol or drug abuse patient.[facility] CenterIn the event this information is protected by the Federal Confidentiality of Alcohol and Drug Abuse Patient Records regulations: The Federal rules restrict any use of the information to criminally investigate or prosecute any alcohol or drug abuse patient.[facility] CenterIn the event this information is protected by the Federal Confidentiality of Alcohol and Drug Abuse Patient Records regulations: The Federal rules restrict any use of the information to criminally investigate or prosecute any alcohol or drug abuse patient.[facility] CenterIn the event this information is protected by the Federal Confidentiality of Alcohol and Drug Abuse Patient Records regulations: The Federal rules restrict any use of the information to criminally investigate or prosecute any alcohol or drug abuse patient.[facility] CenterIn the event this information is protected by the Federal Confidentiality of Alcohol and Drug Abuse Patient Records regulations: The Federal rules restrict any use of the information to criminally investigate or prosecute any alcohol or drug abuse patient.[facility] CenterIn the event this information is protected by the Federal Confidentiality of Alcohol and Drug Abuse Patient Records regulations: The Federal rules restrict any use of the information to criminally investigate or prosecute any alcohol or drug abuse patient.[facility] CenterIn the event this information is protected by the Federal Confidentiality of Alcohol and Drug Abuse Patient Records regulations: The Federal rules restrict any use of the information to criminally investigate or prosecute any alcohol or drug abuse patient.[facility] CenterIn the event this information is protected by the Federal Confidentiality of Alcohol and Drug Abuse Patient Records regulations: The Federal rules restrict any use of the information to criminally investigate or prosecute any alcohol or drug abuse patient.[facility] CenterIn the event this information is protected by the Federal Confidentiality of Alcohol and Drug Abuse Patient Records regulations: The Federal rules restrict any use of the information to criminally investigate or prosecute any alcohol or drug abuse patient.[facility] CenterIn the event this information is protected by the Federal Confidentiality of Alcohol and Drug Abuse Patient Records regulations: The Federal rules restrict any use of the information to criminally investigate or prosecute any alcohol or drug abuse patient.[facility] CenterIn the event this information is protected by the Federal Confidentiality of Alcohol and Drug Abuse Patient Records regulations: The Federal rules restrict any use of the information to criminally investigate or prosecute any alcohol or drug abuse patient.[facility]In the event this information is protected by the Federal Confidentiality of Alcohol and Drug Abuse Patient Records regulations: The Federal rules restrict any use of the information to criminally investigate or prosecute any alcohol or drug abuse patient.[facility] Care Teams (unrecognized sec tion and content) Home Coordinator Relationship Specialty Start Date End Date Hudson Vidales, DO [address] [facility] [place] [address] PCP - General Family Practice 01/14/13 Home Coordinator Relationship Specialty Start Date End Date Hudson Vidales DO [address] [facility] [place] [address] PCP - General Family Practice 01/14/13 Home Coordinator Relationship Specialty Start Date End Date Hudson Vidales DO [address] [facility] [place] [address] PCP - General Family Practice 01/14/13 Home Coordinator Relationship Specialty Start Date End Date Hudson Vidales DO [address] [facility] [place] [address] PCP - General Family Medicine 01/14/13 Home Coordinator Relationship Specialty Start Date End Date Hudson Vidales DO [address] [facility] [place] [address] PCP - General Family Medicine 01/14/13 Home Coordinator Relationship Specialty Start Date End Date Hudson Vidales, DO [address] [facility] [place] [address] PCP - General Family Medicine 01/14/13 Home Coordinator Relationship Specialty Start Date End Date Hudson Vidales, DO [address] [facility] [place] [address] PCP - General Family Medicine 01/14/13 Home Coordinator Relationship Specialty Start Date End Date Hudson Vidales DO [address] [place] [address] PCP - General Family Medicine 01/14/13 Home Coordinator Relationship Specialty Start Date End Date Hudson Vidales DO [address] [facility] [place] [address] PCP - General Family Medicine 01/14/13 Home Coordinator Relationship Specialty Start Date End Date Hudson Vidales DO [address] [facility] [place] [address] PCP - General Family Medicine 01/14/13 Home Coordinator Relationship Specialty Start Date End Date Hudson Vidales DO [address] [place] [address] PCP - General Family Medicine 01/14/13 Home Coordinator Relationship Specialty Start Date End Date Hudson Vidales DO [address] [place] [address] PCP - General Family Medicine 01/14/13 Home Coordinator Relationship Specialty Start Date End Date Hudson Vidales DO [address] [facility] [place] [address] PCP - General Family Medicine 01/14/13 Home Coordinator Relationship Specialty Start Date End Date Hudson Vidales DO [address] [facility] [place] [address] PCP - General Family Medicine 01/14/13 Home Coordinator Relationship Specialty Start Date End Date Hudson Vidales DO [address] [place] [address] PCP - General Family Medicine 01/14/13 Shobha Redd, OIL BURNER SERVICER AND INSTALLER.PROCESS CAMERA OPERATOR [address] [place] [address] Writer Family Medicine 05/09/24 NeelFloyd, OIL BURNER SERVICER AND INSTALLER.PROCESS CAMERA OPERATOR [address] [place] [address] Writer Family Medicine 05/09/24 Home Coordinator Relationship Specialty Start Date End Date Hudson Vidales DO [address] [place] [address] PCP - General Family Medicine 01/14/13 Shobha Redd, OIL BURNER SERVICER AND INSTALLER.PROCESS CAMERA OPERATOR [address] [place] [address] Writer Family Medicine 05/09/24 Floyd Beach, OIL BURNER SERVICER AND INSTALLER.PROCESS CAMERA OPERATOR [address] [place] [address] Writer [facility] 05/09/24 Home Coordinator Relationship Specialty Start Date End Date Hudson Vidales DO [address] [place] [address] PCP - General Family Medicine 01/14/13 Shobha Redd, OIL BURNER SERVICER AND INSTALLER.PROCESS CAMERA OPERATOR [address] [place] [address] Writer Family Medicine 05/09/24 Floyd Beach, OIL BURNER SERVICER AND INSTALLER.PROCESS CAMERA OPERATOR [address] [place] [address] Writer [facility] 05/09/24 Home Coordinator Relationship Specialty Start Date End Date Hudson Vidales DO [address] [place] [address] PCP - General Family Medicine 01/14/13 Shobha Redd, OIL BURNER SERVICER AND INSTALLER.PROCESS CAMERA OPERATOR [address] [place] [address] Writer Family Medicine 05/09/24 NeelFloyd, OIL BURNER SERVICER AND INSTALLER.PROCESS CAMERA OPERATOR [address] [facility] [place] [address] [facility] Home Coordinator Relationship Specialty Start Date End Date Hudson Vidales DO [address] [facility] [place] [address] PCP - General Family Medicine 01/14/13 Shobha Redd, OIL BURNER SERVICER AND INSTALLER.PROCESS CAMERA OPERATOR [address] [place] [address] Writer Family Medicine 05/09/24 NeelFloyd, OIL BURNER SERVICER AND INSTALLER.PROCESS CAMERA OPERATOR [address] [facility] [place] [address] Writer Family Medicine 05/09/24 Home Coordinator Relationship Specialty Start Date End Date Hudson Vidales DO [address] [facility] [place] [address] PCP - General Family Medicine 01/14/13 Shobha Redd, OIL BURNER SERVICER AND INSTALLER.PROCESS CAMERA OPERATOR [address] [facility] [place] [address] [facility] 05/09/24 [facility], OIL BURNER SERVICER AND INSTALLER.PROCESS CAMERA OPERATOR [address] [facility] [place] [address] [facility] 05/09/24 Home Coordinator Relationship Specialty Start Date End Date Hudson Vidales DO [address] [facility] [place] [address] PCP - General Family Medicine 01/14/13 Shobha Redd, OIL BURNER SERVICER AND INSTALLER.PROCESS CAMERA OPERATOR [address] [facility] [place] [address] [facility] 05/09/24 [facility], OIL BURNER SERVICER AND INSTALLER.PROCESS CAMERA OPERATOR [address] [place] [address] [facility] 05/09/24 Home Coordinator Relationship Specialty Start Date End Date Hudson Vidales DO [address] [facility] [place] [address] PCP - General Family Medicine 01/14/13 Shobha Redd, OIL BURNER SERVICER AND INSTALLER.PROCESS CAMERA OPERATOR [address] [facility] [place] [address] [facility] 05/09/24 [facility] Floyd, OIL BURNER SERVICER AND INSTALLER.PROCESS CAMERA OPERATOR [address] [facility] [place] [address] [facility] 05/09/24 Home Coordinator Relationship Specialty Start Date End Date Hudson Vidales DO [address] [facility] [place] [address] PCP - General Family Medicine 01/14/13 Shobha Redd, OIL BURNER SERVICER AND INSTALLER.PROCESS CAMERA OPERATOR [address] [facility] [place] [address] Writer [facility] 05/09/24 NeelFloyd, OIL BURNER SERVICER AND INSTALLER.PROCESS CAMERA OPERATOR [address] [facility] [place] [address] Writer [facility] 05/09/24 Home Coordinator Relationship Specialty Start Date End Date Hudson Vidales DO [address] [facility] [place] [address] PCP - General Family Medicine 01/14/13 Shobha Redd, OIL BURNER SERVICER AND INSTALLER.PROCESS CAMERA OPERATOR [address] [facility] [place] [address] Writer [facility] 05/09/24 NeelFloyd, OIL BURNER SERVICER AND INSTALLER.PROCESS CAMERA OPERATOR [address] [facility] [place] [address] [facility] 05/[facility]/24 Home Coordinator Relationship Specialty Start Date End Date Hudson Vidales DO [address] [facility] [place] [address] PCP - General Family Medicine 01/14/13 Shobha Redd, OIL BURNER SERVICER AND INSTALLER.PROCESS CAMERA OPERATOR [address] [facility] [place] [address] [facility] 05/09/24 [place], OIL BURNER SERVICER AND INSTALLER.PROCESS CAMERA OPERATOR [address] [facility] [place] [address] Writer [facility] 05/09/24 Home Coordinator Relationship Specialty Start Date End Date Hudson Vidales DO [address] [facility] [place] [address] PCP - General Family Medicine 01/14/13 Floyd Beach APRN.PROCESS CAMERA OPERATOR [address] [facility] [place] [address] Writer Family Medicine 05/09/24 Home Coordinator Relationship Specialty Start Date End Date Hudson Vidales DO [address] [place] [address] PCP - General Family Medicine 01/14/13 Shobha Redd APRN.PROCESS CAMERA OPERATOR [address] [place] [address] Writer Family Medicine 05/09/24 08/20/24 Floyd [place], OIL BURNER SERVICER AND INSTALLER.PROCESS CAMERA OPERATOR [address] [place] [address] Writer [facility] 05/09/24 Home Coordinator Relationship Specialty Start Date End Date Hudson Vidales DO [address] [place] [address] PCP - General Family Medicine 01/14/13 Floyd [place], OIL BURNER SERVICER AND INSTALLER.PROCESS CAMERA OPERATOR [address] [place] [address] Writer Family Medicine 05/09/24 Home Coordinator Relationship Specialty Start Date End Date Hudson Vidales DO [address] [facility] [place] [address] PCP - General Family Medicine 01/14/13 [place], OIL BURNER SERVICER AND INSTALLER.PROCESS CAMERA OPERATOR [address] [place] [address] Writer [facility] 05/09/24 Home Coordinator Relationship Specialty Start Date End Date Hudson Vidales DO [address] [place] [address] PCP - General Family Medicine 01/14/13 [place], OIL BURNER SERVICER AND INSTALLER.PROCESS CAMERA OPERATOR [address] [place] [address] Writer Family Medicine 05/09/24 Home Coordinator Relationship Specialty Start Date End Date Hudson Vidales DO [address] [place] [address] PCP - General Family Medicine 01/14/13 [place], OIL BURNER SERVICER AND INSTALLER.PROCESS CAMERA OPERATOR [address] [place] [address] Writer Family Medicine 05/09/24 Oksana Thomason, OIL BURNER SERVICER AND INSTALLER.PROCESS CAMERA OPERATOR [address] [place] [address] Writer [facility] 11/15/24 Home Coordinator Relationship Specialty Start Date End Date Hudson Vidales DO [address] [place] [address] PCP - General Family Medicine 01/14/13 [place], OIL BURNER SERVICER AND INSTALLER.PROCESS CAMERA OPERATOR [address] [place] [address] Writer Family Medicine 05/09/24 Oksana Thomason, OIL BURNER SERVICER AND INSTALLER.PROCESS CAMERA OPERATOR [address] [place] [address] [facility] 11/15/24 Home Coordinator Relationship Specialty Start Date End Date Hudson Vidales DO [address] [place], [place] [address] PCP - General Family Medicine 01/14/13 Floyd Beach OIL BURNER SERVICER AND INSTALLER.PROCESS CAMERA OPERATOR [address] [place], [place] [address] [facility] 05/09/24 Oksana Thomason, OIL BURNER SERVICER AND INSTALLER.PROCESS CAMERA OPERATOR [address] [place], [place] [address] [facility] 11/15/24 Reason for Visit (unrecogniz ed section and content) Reason Comments Refill Request Reason Onset Date Comments Refill Request 01/23/2022 Reason Onset Date Comments Refill Request 06/21/2022 Reason Onset Date Comments Refill Request 07/15/2022 Reason Onset Date Comments Refill Request 09/30/2022 Reason Comments Medication Follow-up Reason Comments Insurance Authorization Epi-pen Reason Onset Date Comments Refill Request 12/05/2022 Reason Comments Sinus Problem Reason Onset Date Comments Refill Request 01/02/2024 Reason Comments Cough Chest congestion, L ear pain, ST, fever x5 days Reason Comments Nebulizer Solution Reason Comments follow up urgent care cough and sinus No t feeling any better wok up this am diarrhea Reason Comments Results Reason Onset Date Comments Refill Request 08/03/2024 Reason Comments Spirometry Specialty Diagnoses / Procedures Referred By Contac t Referred To [facility] Diagnoses Chronic cough Procedures SPIROMETRY - BASELINE AND POST DILATOR BRNCDILAT RSPSE SPMTRY PRE&POST-BRNCDILAT ADMN Shobha Redd, OIL BURNER SERVICER AND INSTALLER.PROCESS CAMERA OPERATOR [address] [place] [address] Phone: tel: fax: [facility] [place] [address] [place] [address] Referral ID Status Reason Start Date Expiration Date V isits Requested Visits Authorized [id number] Closed Auto-Generate d Referral 07/19/2024 08/18/2025 1 1 Specialty Diagnoses / Procedures Referred By Contac t Referred To Contact [facility] Diagnoses Chronic cough Procedures LUNG VOLUMES Shobha Redd, OIL BURNER SERVICER AND INSTALLER.PROCESS CAMERA OPERATOR [address] [place] [address] Phone: tel: fax: [facility] [place] [address] [place] [address] Referral ID Status Reason Start Date Expiration Date V isits Requested Visits Authorized [id number] Closed Auto-Generate d Referral 07/19/2024 08/18/2025 [address] Specialty Diagnoses / Procedures Referred By Contac t Referred To Contact [facility] Diagnoses Chronic cough Procedures CT CHEST WO IVCON DIAGNOSTIC COMPUTED TOMOGRAPHY THORAX W/O CNTRST Shobha Redd, OIL BURNER SERVICER AND INSTALLER.PROCESS CAMERA OPERATOR [address] [place] [address] Phone: tel: fax: [place] [address] Referral ID Status Reason Start Date Expiration Date V isits Requested Visits Authorized [id number] Closed Auto-Generate d Referral 07/19/2024 08/18/2025 1 1 Reason Comments New Patient Cough Cough Reason Onset Date Comments Refill Request 08/23/2024 Reason Comments disablity paperwork Reason Comments Breathing Problem Reason Comments Forms Reason Comments discuss disability options FOR RECORDS PERTAINING TO PATIENTS WHO ARE OR HAVE BEEN ENROLLED IN A CHEMICAL DEPENDENCY/SUBSTANCEABUSE PROGRAM, SOME INFORMATION MAY BE OMITTED. This clinical summary was aggregated from multiple sources. Caution should be exercised in using it in the provision of clinical care. This summary normalizes information from multiple sources, and as a consequence, information in this document may materially change the coding, format and clinical context of patient data. In addition, data may be omitted in some cases. CLINICAL DECISIONS SHOULD BE BASED ON THE PRIMARY CLINICAL RECORDS. [employer] provides no warranty or guarantee of the accuracy or completeness of information in this document.
[2025-01-19] MEDS: 0.9% Normal Saline (1000mL) 1,000 ML 500 ML IV (20:31)
[2025-01-19] MEDS: Albuterol 2.5 MG/3 ML VIAL.NEB. INHALATION (22:23)
[2025-01-19] MEDS: 0.9% Saline Lock 10 ML Syringe IV (22:34)
[2025-01-20 01:11] LABS: Anion Gap 14 (5-15); BUN 8 mg/dL (4-19); BUN/Creat Ratio 11.7 RATIO (10-20); Calcium,Total 8.6 mg/dL (7.6-11.0); Carbon Dioxide 23.7 mmol/L (21.0-32.0); Chloride 89 mmol/L (98-108); Estimated Creatinine Clearance 74.31 ml/min (50-250); Glucose 83 mg/dL (70-99); Potassium 2.9 mmol/L (3.3-5.1)
[2025-01-20 02:00] VITALS: BP 130/88; PULSE 82; RESP 16; TEMP 36.6; O2SAT 90
[2025-01-20 05:45] LABS: Hematocrit 38.6 % (37-47); Hemoglobin 13.9 g/dL (12.0-15.0); Mean Corp Hgb Conc 36.0 g/dL (32-36); Mean Corpuscular Volume 87.9 fL (81-99); Mean Platelet Vol. 8.1 fl (6.2-12.0); Platelet Count 234 K/mm3 (150-450); RBC Distribution Width CV 11.9 % (11.6-14.6); RBC Distribution Width SD 38.8 fl (35.1-43.9); Red Blood Count 4.39 M/mm3 (4.2-5.4); White Blood Count 4.0 K/mm3 (4.4-11.0)
[2025-01-20 06:08] VITALS: BP 172/86; PULSE 89; RESP 20; O2SAT 92
[2025-01-20 06:10] VITALS: BP 172/86; PULSE 89
[2025-01-20] MEDS: 0.9% Saline Lock 10 ML Syringe IV (06:10)
[2025-01-20 06:16] LABS: Anion Gap 14 (5-15); BUN 8 mg/dL (4-19); BUN/Creat Ratio 10.6 RATIO (10-20); Calcium,Total 8.8 mg/dL (7.6-11.0); Carbon Dioxide 25.6 mmol/L (21.0-32.0); Chloride 91 mmol/L (98-108); Estimated Creatinine Clearance 68.66 ml/min (50-250); Glucose 83 mg/dL (70-99); Potassium 3.3 mmol/L (3.3-5.1)
[2025-01-20 08:35] VITALS: BP 157/85; PULSE 86; RESP 22; TEMP 36.7; O2SAT 88
[2025-01-20 08:38] VITALS: O2SAT 92
[2025-01-20] MEDS: Cholecalciferol (Vit D3) 125 MCG CAPSULE (5,000 UNITS) PO (08:39)
--- NOTE | 2025-01-20 09:15 | CASEMGMT ---
Dx: acute hyponatremia LACE: 1 6-Clicks: 23 Medical record reviewed and patient evaluated for identification of discharge planning needs. Based on this review, at this time criteria are not present to indicate a need for discharge planning. Will remain available to assist with discharge planning needs as identified or requested.
--- NOTE | 2025-01-20 11:02 | DS.PCM_ITS ---
Providers Date of Admission: 01/19/25 Date of Discharge: 01/20/25 Primary Care Physician: Dr. Hudson Vidales, DO Reason For Visit: ACUTE HYPONATREMIA Diagnosis Discharge Diagnosis (1) Acute hyponatremia: Status: Acute Code(s): E87.1 - Hypo-osmolality and hyponatremia Plan Patient is a 54-year-old lady who was sent to the ED by her primary care physician with abnormal labs. Patient was found to be hyponatremic with sodium of 121. Admitted to monitored bed for subsequent management 1. Hyponatremia -i secondary to medication induced patient is on bupropion this was held patient was also rehydrated with IV fluid repeat potassium a day following head admission came up to 130 decision was made to discharge patient home with plans for patient to have a repeat BMP on 01/24/2025 2. Dyslipidemia ?Patient is on statin therapy, continued at home dose 3. Seizure disorder ? Patient is on, present for 4. Depression with anxiety ? Patient is on bupropion as well as discontinuing given the hyponatremia plan is for patient to follow-up with PCP for alternative therapy 5. Tobacco dependence ? Counseled on cessation, offered nicotine patch for tobacco cravings 6. Elevated blood pressure ? Patient known history of hypertension and is on amlodipine 5 mg daily however blood pressure control was still not optimal did increase amlodipine to 10 mg on discharge and added losartan 25 mg twice daily 7. DVT prophylaxis ? SC enoxaparin Medications at Discharge Home Medications albuterol sulfate 90 mcg/actuation aerosol inhaler 1 puff inhalation Q6H PRN PRN Shortness Of Breath 11/20/18 carbamazepine 200 mg tablet 200 mg PO BIDCM seizures 11/20/18 simvastatin 40 mg tablet 1 tab PO DAILY cholesterol 11/20/18 cholecalciferol (vitamin D3) 125 mcg (5,000 unit) tablet (Vitamin D3) 5,000 unit PO DAILY 01/19/25 amlodipine 5 mg tablet 10 mg (2 x 5 mg) PO DAILY #60 tabs 01/20/25 losartan 25 mg tablet 25 mg PO BID #180 tabs 01/20/25 Hospital Course Summary of Care Provided Minutes Spent on Discharge: 32 Physical Exam Narrative GENERAL: cooperative HEENT: Atraumatic; normocephalic EYES; Anicteric, Normal Conjunctiva NECK; supple, normal thyroid, RESPIRATORY: Diminished to auscultation CARDIOVASCULAR: Regular S1 S2, GI: soft, normoactive bowel sounds, : No Renal angle tenderness; EXTREMITIES: No edema, no clubbing, MUSCULOSKELETAL: no muscle wasting NEURO: Awake; no lateralizing signs. SKIN: No Rash PSYCH; Flat affect Weight / BMI Weight Weight: 65 kg Body Mass Index (BMI) 24.5 ABG / Lab / Microbiology Data 01/20/25 05:17 01/20/25 05:17 Laboratory: Laboratory Results - last 24 hr 01/19/25 15:45: Sodium 121 L, Potassium 3.4, Chloride 82 L, Carbon Dioxide 25.0, Anion Gap 14, BUN 9, Creatinine 0.87, Estim Creat Clear Calc 62.35, Est GFR (MDRD) Non-Af 78, BUN/Creatinine Ratio 10.0, Glucose 87, Calcium 9.4 01/19/25 17:30: Serum Osmolality 258 L, Phosphorus 3.6, Magnesium 2.2, TSH 2.190, Urine Color Straw, Urine Clarity Clear, Urine pH 7.0, Ur Specific [place] 1.010, Urine Protein 100 H, Urine Glucose (UA) Normal, Urine Ketones 5 H, Urine Occult Blood 50 H, Urine Nitrite Negative, Urine Bilirubin Negative, Urine Urobilinogen Normal, Ur Leukocyte Esterase Negative, Urine RBC 0-5 SEEN, Urine WBC 0-5 SEEN, Ur Squamous Epith Cells 0-5 SEEN, Urine Bacteria 0 SEEN, Urine Mucus 0 SEEN, Urine Osmolality 100, Ur Random Sodium < 20 01/19/25 17:58: WBC 4.7, RBC 4.28, Hgb 13.7, Hct 37.0, MCV 86.4, MCH 32.0, MCHC 37.0 H, RDW Std Deviation 37.2, RDW Coeff of Ashley 11.8, Plt Count 227, MPV 8.0, Immature Gran % (Auto) 0.400, Neut % (Auto) 63.9, Lymph % (Auto) 21.6, [place] % (Auto) 7.7, Eos % (Auto) 5.1 H, Baso % (Auto) 1.3 H, Absolute Neuts (auto) 3.0, Absolute Lymphs (auto) 1.01, Nucleated RBC % 0 01/20/25 00:13: Sodium 127 L, Potassium 2.9 L, Chloride 89 L, Carbon Dioxide 23.7, Anion Gap 14, BUN 8, Creatinine 0.73, Estim Creat Clear Calc 74.31, Est GFR (MDRD) Non-Af 97, BUN/Creatinine Ratio 11.7, Glucose 83, Calcium 8.6 01/20/25 05:17: WBC 4.0 L, RBC 4.39, Hgb 13.9, Hct 38.6, MCV 87.9, MCH 31.7, MCHC 36.0, RDW Std Deviation 38.8, RDW Coeff of Ashley 11.9, Plt Count 234, MPV 8.1, Sodium 130 L, Potassium 3.3, Chloride 91 L, Carbon Dioxide 25.6, Anion Gap 14, BUN 8, Creatinine 0.79, Estim Creat Clear Calc 68.66, Est GFR (MDRD) Non-Af 88, BUN/Creatinine Ratio 10.6, Glucose 83, Calcium 8.8 Radiography Diagnostic Testing: Radiology Impression Chest X-Ray 01/19/25 17:40 IMPRESSION: No acute cardiopulmonary disease. Reading Location: [id number] D/C Instructions Discharge Activity: Return to Normal Activity Call your doctor if you observe: Fever of 101 or Higher, Shortness of breath, Fainting spells and Chest pain DC O2, CPAP, BIPAP Needs Home O2 Discharge instructions: No Meaningful Use Info Meaningful Use Meaningful Use Diagnoses (Choose all that apply): None applicable Discharge Plan Admission Admit Date/Time: 01/19/25 17:11 Attending Provider: Huber Edwards Primary Care Provider: Hudson Vidales Consulting Providers: Ramesh Stoner Discharge Orders/Prescriptions Prescriptions: New losartan 25 mg tablet 25 mg PO BID Qty: 180 0RF Continued carbamazepine 200 MG tablet 200 mg PO BIDCM albuterol sulfate 1 PUFF inhaler 1 puff inhalation Q6H PRN PRN (Reason: Shortness Of Breath) simvastatin 40 MG tablet 1 tab PO DAILY cholecalciferol (vitamin D3) [Vitamin D3] 125 mcg (5,000 unit) tablet 5,000 unit PO DAILY Changed amlodipine 5 MG tablet 10 mg PO DAILY Qty: 60 0RF Discontinued bupropion HCl 150 mg tablet sustained-release 12 hr 150 mg PO BID Other Ambulatory Orders: Basic Metabolic Profile (BMP) (Routine) Timeframe: 20250124 Facility: [facility] - Location: Laboratory Ordered By: Dr. Huber Edwards Referrals / Follow Up: Hudson Vidales DO [Primary Care Provider] - Disposition Disposition (needs filled in before D/C Order can be placed): Home, Self Care Charges/Coding Visit Charges Inpatient E&M: 20877 Subs Hosp L2
[2025-01-20 13:18] VITALS: BP 163/76; PULSE 114; RESP 20; TEMP 36.6; O2SAT 91
== END 2025-01-20 13:44 | disposition home or self-care (01) | DRG 426 ==
LOC: ED 17:10 → PCU 01-20 07:02
PROVIDERS: Admitting Provider Hospitalist; Emergency Provider Emergency Medicine; PCP Student in an Organized Health Care Education/Training Program; Visit Provider Internal Medicine
DX: E87.1 Hypo-osmolality and hyponatremia (principal); G40.909 Epilepsy, unspecified, not intractable, without status epilepticus; E78.5 Hyperlipidemia, unspecified; I10 Essential (primary) hypertension; F17.210 Nicotine dependence, cigarettes, uncomplicated; F41.8 Other specified anxiety disorders; Z79.51 Long term (current) use of inhaled steroids; Z79.899 Other long term (current) drug therapy; J45.909 Unspecified asthma, uncomplicated; T43.295A Adverse effect of other antidepressants, initial encounter
CPT/HCPCS: 36415; 71046; 80048; 81001; 83735; 83930; 83935; 84100; 84300; 84443; 85025; 85027; 93005; 94640; 94668; 96361; 96372; 96374; 96376; 99221; 99284; A4216; G0378